=== PATIENT | male | born 1955 | race Caucasian/White ===

== ENCOUNTER 2019-11-10 00:12 | Outpatient (CLI) | payer MEDICARE, SELFPAY ==
[2019-11-10 18:07] LABS: SARS-CoV-2 RNA PCR Negative
== END 2019-11-10 00:13 | disposition home or self-care (01) ==
LOC: ANHCOVIDDT 00:12
PROVIDERS: PCP Family Medicine; Visit Provider Surgery
DX: Z01.812 Encounter for preprocedural laboratory examination (principal); Z20.828 Contact with and (suspected) exposure to other viral communicable diseases
CPT/HCPCS: 87635; C9803; U0003

== ENCOUNTER 2019-11-12 01:31 | Day surgery (SDC) | payer MEDICARE, SELFPAY ==
[2019-11-03 14:38] VITALS: BMI 27.6
[2019-11-12 06:50] VITALS: BP 152/86; PULSE 50; RESP 16; TEMP 36.4; O2SAT 100
--- NOTE | 2019-11-12 06:57 | WPDANESEPPF ---
Anes - Initial Pre Proc Eval Procedure: Operation Date: 11/12/19 07:30 Proposed Procedures p Bilateral Inguinal Hernia Repair With Mesh - Celestino Dave MD Date/Time: 11/12/19 06:57 Surgeon: Celestino Dave MD Pre Op Diagnosis: bilateral inguinal hernia Patient Data Age: 64 Gender: M Height: 5 ft 7 in Weight: 74 kg Last Vital Signs Temp 36.4 C 11/12/19 06:50 Pulse 50 L 11/12/19 06:50 Resp 16 11/12/19 06:50 BP 152/86 H 11/12/19 06:50 Pulse Ox 100 11/12/19 06:50 Allergies Allergy/AdvReac Type Severity Reaction Status Date / Time No Known Allergies Allergy Mild Verified 11/12/19 06:21 Home Medications Medication Instructions Recorded Confirmed Type mometasone 0.1 % topical cream 1 applic TOPICAL DAILY PRN #15 gm 08/26/19 11/12/19 Rx Patient hx anesthesia problems: none Family hx anesthesia problems: none PMFSH Past Medical History Medical History Anemia Bilateral inguinal hernia Lipoma of back Mixed hyperlipidemia Nocturia Seborrheic dermatitis Surgical History Surgical History H/O removal of cyst (~1967) removal of cyst in 1967 and in 2009 Hx of tonsillectomy (~1960) Family History Family History Father Heart disease Mother Cerebrovascular accident Sibling Heart disease Hypertension Social History Social History Smoking status: Never smoker Alcohol intake: never Substance use: never Gender identity (if verbalized by the patient): Male Anes - Eval Final PreProcedure Day of Procedure 11/12/19 06:57 Patient weight: overweight Heart: regular rate and rhythm Lungs: clear to auscultation Airway: Mallampati scale class 1 Neurological: alert and oriented Last oral intake: >/= 8 hours ASA classification: II Emergent: no Anesthetic plan: proceed Anesthesia type and monitoring: general GIVS and standard monitoring Informed Consent: The patient's anesthetic plan and its attendant risks and benefits were discussed with the patient/family/POA. Questions were solicited and answers provided to the satisfaction of the patient/family/POA.
[2019-11-12] MEDS: LACTATED RINGERS 1,000 ML 30 ML IV CONT ×2 (07:04→09:28)
--- NOTE | 2019-11-12 07:17 | WPDHPUPDATE1 ---
History and Physical Update Update Date/Time: 11/12/19 07:17 History and Physical has been reviewed, including an updated exam of the patient. There are NO changes in the patient's condition. Risks, benefits, and alternatives have been discussed and questions answered. Patient agrees to proceed with procedure.
[2019-11-12] MEDS: ceFAZolin 2 GM/D5W 50 ML 2 GM/50 ML BAG IVPB (07:20)
[2019-11-12] MEDS: KETOROLAC 30 MG/ML VIAL (*BKC) IM (09:14)
[2019-11-12 09:30] VITALS: BP 134/83; PULSE 48; RESP 12; O2SAT 99
[2019-11-12 10:00] VITALS: BP 146/80; PULSE 62; RESP 12
--- NOTE | 2019-11-12 10:20 | SUR.PHASEII ---
1020 spoke with spouse and updated her on pt condition
[2019-11-12 10:30] VITALS: BP 146/80; PULSE 62; RESP 12
[2019-11-12 11:00] VITALS: BP 158/81; PULSE 49; RESP 12
--- NOTE | 2019-11-12 13:38 | PM.PROC ---
Procedure Note - Detailed Date of procedure: 11/12/19 Pre-op diagnosis: bilateral inguinal hernia Bilateral inguinal hernias Post-op diagnosis: same Procedure performed: Repair bilateral inguinal hernias with Parietex hernia mesh system Description of procedure: The patient was taken to surgery and IV sedation was administered. Both the right and left groin areas and genitalia were prepped and draped. The right inguinal hernia was addressed 1st. The proposed incision was marked on the skin. Local was infiltrated into the skin and the deeper subcutaneous tissues. Incision was made and deepened through the subcutaneous. Crossing veins were cauterized and divided. Dissection was carried through Veronika's fascia down to the external oblique aponeurosis. The aponeurosis was exposed as was the external ring. Additional local anesthesia was infiltrated deep to the aponeurosis in the area of the spermatic cord and inguinal canal contents. The aponeurosis was opened laterally and extended medially through the external ring. The leaves of the aponeurosis were dissected free from the spermatic cord. The ileoinguinal nerve was carefully preserved throughout the dissection and was left attached to the spermatic cord. The cord was then mobilized medially on a Breanna drain. The cord was dissected back to the internal ring. Dissection was then carried out the hernia sac from the cord. This was a large direct hernia with a wide base. It occupied most of the direct space. It was dissected back to its neck. The hernia sac was scored through the transversalis fascia circumferentially just above the neck. The sac was dunked into the retroperitoneum. A 8 centimeter Parietex chilkoot was chosen. It was folded to form a plug. It was placed in the defect. The edges were sutured to the transversalis fascia with interrupted 3 0 Vicryl suture. The hernia defect was then partially closed with some additional 3 0 Vicryl suture. Patch was then cut to the appropriate size and placed over the inguinal canal floor. The lateral leaves were passed beyond the cord. The cord and ileoinguinal nerve were then laid over the patch. The external oblique aponeurosis was closed with interrupted 3 0 Vicryl suture. Veronika's fascia was closed with interrupted 3 0 Vicryl suture. The subcutaneous was closed with interrupted 4 0 Vicryl suture. Four 0 Vicryl subcuticular skin sutures were placed. The skin was closed finally with a running 4 0 Monocryl skin suture. The surgeon then changed sides and went to the patient's left side. The left inguinal hernia was addressed. The proposed incision was marked on the skin as a mirror image to the right side. Local was infiltrated into the skin and the deeper subcutaneous tissues. Incision was made and deepened through the subcutaneous. Crossing veins were cauterized and divided. Dissection was carried through Veronika's fascia down to the external oblique aponeurosis. The aponeurosis was exposed as was the external ring. Additional local anesthesia was infiltrated deep to the aponeurosis in the area of the spermatic cord and inguinal canal contents. The aponeurosis was opened laterally and extended medially through the external ring. The leaves of the aponeurosis were dissected free from the spermatic cord. The ileoinguinal nerve was carefully preserved throughout the dissection and was left attached to the spermatic cord. The cord was then mobilized medially on a Breanna drain. The cord was dissected back to the internal ring. Dissection was then carried out the hernia sac from the cord. This was also a direct hernia although not as large as on the right side. It was dissected back to its neck. The hernia sac was scored through the transversalis fascia circumferentially just above the neck. The sac was dunked into the retroperitoneum. A 6 centimeter Parietex chilkoot was chosen. It was folded to form a plug. It was placed in the defect. The
== END 2019-11-12 11:39 | disposition home or self-care (01) ==
PROVIDERS: PCP Family Medicine; Visit Provider Surgery
PROC: (CPT 49505; principal; 2019-11-12 07:30)
DX: K40.20 Bilateral inguinal hernia, without obstruction or gangrene, not specified as recurrent (principal); L21.9 Seborrheic dermatitis, unspecified
CPT/HCPCS: 49505; A9270; C1781; C9290; J0690; J1885; J2250; J2405; J2704; J3010; J7120

== ENCOUNTER 2020-05-02 09:54 | Outpatient (CLI) | payer MEDICARE, SELFPAY ==
--- NOTE | 2020-05-02 | EST_ITS ---
Patient Info Name: Cuco Cordova Age: 64 years : 1955 Gender: Male Ht: 67 in Wt: 165 lbs BSA: 1.89 m2 Heart Rhythm: Sinus Rhythm Technical Quality: Excellent Exam Date: 05/02/2020 10:28 AM Exam Location: [facility] Patient Status: Outpatient Admit Date: 05/02/2020 Staff Ordering Physician: Destin Escalona MD Attending Provider: Destin Escalona MD Exercise Technologist: Delicia Mejia RDCS Exam Type: CA stress test treadmill Study Info Indications I49.9 - Cardiac arrhythmia, unspecified A treadmill exercise stress test was performed. Summary 1. Negative treadmill stress test for ischemia. 2. Very good exercise tolerance. 3. Minor ventricular ectopy with exercise. Protocol: [facility] ECG Details Stage: REST Duration (min): 7 min : 23 sec Speed (mph): 0.0 Grade (%): 0 HR (bpm): 63 SBP (mmHg): 156 DBP (mmHg): 92 METS: --- Stage: REST Duration (min): 16 min : 13 sec Speed (mph): 0.0 Grade (%): 0 HR (bpm): --- SBP (mmHg): 156 DBP (mmHg): 92 METS: --- Stage: STAGE 1 Duration (min): 1 min : 0 sec Speed (mph): 1.7 Grade (%): 10 HR (bpm): 86 SBP (mmHg): 156 DBP (mmHg): 92 METS: --- Stage: STAGE 1 Duration (min): 2 min : 0 sec Speed (mph): 1.7 Grade (%): 10 HR (bpm): 92 SBP (mmHg): 156 DBP (mmHg): 92 METS: --- Stage: STAGE 1 Duration (min): 3 min : 0 sec Speed (mph): 1.7 Grade (%): 10 HR (bpm): 92 SBP (mmHg): 165 DBP (mmHg): 74 METS: --- Stage: STAGE 2 Duration (min): 1 min : 0 sec Speed (mph): 2.5 Grade (%): 12 HR (bpm): 103 SBP (mmHg): 165 DBP (mmHg): 74 METS: --- Stage: STAGE 2 Duration (min): 2 min : 0 sec Speed (mph): 2.5 Grade (%): 12 HR (bpm): 113 SBP (mmHg): 170 DBP (mmHg): 79 METS: --- Stage: STAGE 2 Duration (min): 3 min : 0 sec Speed (mph): 2.5 Grade (%): 12 HR (bpm): 117 SBP (mmHg): 170 DBP (mmHg): 79 METS: --- Stage: STAGE 3 Duration (min): 1 min : 0 sec Speed (mph): 3.4 Grade (%): 14 HR (bpm): 125 SBP (mmHg): 173 DBP (mmHg): 77 METS: --- Stage: STAGE 3 Duration (min): 2 min : 0 sec Speed (mph): 3.4 Grade (%): 14 HR (bpm): 128 SBP (mmHg): 173 DBP (mmHg): 77 METS: --- Stage: STAGE 3 Duration (min): 3 min : 0 sec Speed (mph): 3.4 Grade (%): 14 HR (bpm): 128 SBP (mmHg): 163 DBP (mmHg): 81 METS: --- Stage: STAGE 4 Duration (min): 1 min : 0 sec Speed (mph): 4.2 Grade (%): 16 HR (bpm): 134 SBP (mmHg): 163 DBP (mmHg): 81 METS: --- Stage: STAGE 4 Duration (min): 1 min : 2 sec Speed (mph): 4.2 Grade (%): 16 HR (bpm): 134 SBP (mmHg): 163 DBP (mmHg): 81 METS: --- Stage: RECOVERY Durat
--- NOTE | 2020-05-02 10:13 | ECG_ITS ---
Measurements Intervals Baker Rate: 74 P: 55 PA: 155 QRS: -24 QRSD: 88 T: 9 QT: 359 QTc: 400 Interpretive Statements SINUS RHYTHM BORDERLINE T WAVE ABNORMALITY- INFERIOR LEADS BORDERLINE ECG Electronically Signed On 05-02-2020 11:55:33 MEDICAL OFFICE TECHNICIAN by Raphael Lugo D.O.
== END 2020-05-02 09:55 | disposition home or self-care (01) ==
PROVIDERS: PCP Family Medicine; Visit Provider Family Medicine
DX: I49.9 Cardiac arrhythmia, unspecified (principal); R94.31 Abnormal electrocardiogram [ECG] [EKG]
CPT/HCPCS: 93005; 93017

== ENCOUNTER 2020-07-03 06:54 | Outpatient (NON) | payer MEDICARE, SELFPAY ==
[2020-07-03 21:25] LABS: SARS-CoV-2 RNA PCR Negative
== END 2020-07-03 06:55 ==
PROVIDERS: PCP Family Medicine; Visit Provider Family Medicine
DX: R68.89 Other general symptoms and signs (principal); Z20.822 Contact with and (suspected) exposure to COVID-19
CPT/HCPCS: C9803; U0003; U0005

== ENCOUNTER 2023-08-26 08:29 | Day surgery (SDC) | payer MEDICARE, SELFPAY ==
[2023-08-26] VITALS (10 sets, daily range): BP systolic 126–159; BP diastolic 48–87; PULSE 49–80; RESP 14–21; TEMP 36–36.8; O2SAT 98–100
--- NOTE | ~2023-08-26 | CT_ITS ---
CT of the Abdomen and Pelvis: Indication: Abdominal pain Technique: 2.5 mm axial scans were obtained through the abdomen and pelvis following intravenous adm inistration of 100 cc of Omnipaque 350. Dose reduction technique was used on this scan by utilizing a utomated exposure control and iterative reconstruction technique. The dose-length product (DLP) was 4 62.11 mGy-cm. Findings: Scans through the lung bases are unremarkable. Right hepatic lobe cyst present posteriorly. The spleen, pancreas, gallbladder, adrenals and right ki dney are within normal limits. There is a 7 x 5 mm stone at the distal left ureter (axial image 150), with moderate left hydroureteronephrosis to this level. There is left perinephric fluid. No contrast extravasation evident at this time, though delayed images were not performed. There are atherosclero tic calcifications of the aorta. No lymphadenopathy. No bowel obstruction or bowel wall thickening. There is no evidence to suggest acute appendicitis. Images through the pelvis were performed. Urinary bladder unremarkable. Prostate gland mildly enlarge d. No ascites in the pelvis. Impression: 7 x 5 mm distal left ureteral stone with moderate left hydroureteronephrosis. Left perinephric fluid, possibly due to calyceal rupture. Reviewed, dictated and finalized at location . Impression: 7 x 5 mm distal left ureteral stone with moderate left hydroureteronephrosis. Left perinephric fluid, possibly due to calyceal rupture.
--- NOTE | ~2023-08-26 | XR_ITS ---
EXAMINATION: XR retrograde pyelo w/stent LT DATE: 08/26/2023 16:45 CDT INDICATION: LEFT RETRO, LEFT STENT . TECHNIQUE: 5 fluoroscopic images of the left abdomen and pelvis were obtained during left retrograde pyelography with stent placement, performed by Dilan Sanders MD. I was not present during th e procedure. Fluoroscopy exposure time was 17.2 seconds. Air Kerma 5.30 mGy. DAP 0.93736 mGym2. COMPARISON: CT abdomen pelvis 08/26/2023 FINDINGS/IMPRESSION: Fluoroscopic documentation of left retrograde pyelography with stent placement. Please refer to the o perative note for complete procedural details. Reviewed, dictated and finalized at location K.
--- NOTE | ~2023-08-26 | XR_ITS ---
EXAMINATION: XR abdomen/kub 1V DATE: 08/26/2023 10:52 INDICATION: Left ureteral stone. Left flank pain. TECHNIQUE: A supine view of the abdomen on 2 radiographs was obtained. COMPARISON: CT abdomen and pelvis 08/26/2023 FINDINGS: There are no dilated loops of bowel. There is contrast in the renal collecting system. Ther e are is moderate left hydronephrosis and hydroureter. There is a stone in distal left ureter. IMPRESSION: 1. Stone in distal left ureter with moderate left hydronephrosis and hydroureter. Reviewed, dictated and finalized at location A. IMPRESSION: 1. Stone in distal left ureter with moderate left hydronephrosis and hydrourete r.
--- NOTE | 2023-08-26 09:27 | ED.ABDPAIN ---
HPI - Abdominal Pain General Chief Complaint: Abdominal Pain <MARTÍN Macias Last Filed: 08/26/23 16:30> Stated Complaint: abd pain <MARTÍN Macias Last Filed: 08/26/23 16:30> Time Seen by Provider: 08/26/23 08:57 <MARTÍN Macias Last Filed: 08/26/23 16:30> Source: patient <MARTÍN Macias Last Filed: 08/26/23 16:30> Mode of arrival: ambulatory <MARTÍN Macias Last Filed: 08/26/23 16:30> Limitations: no limitations <MARTÍN Macias Last Filed: 08/26/23 16:30> History of Present Illness HPI narrative: Patient is a 67-year-old male, previously healthy, who presents the ED with report of left lower quadrant abdominal pain. Patient reports the pain began suddenly a few hours ago this morning. Present in his left lower abdomen. Denies radiation of the pain to his groin or around to his back. Has never had pain like this before. Has not tried anything for the pain. Is otherwise asymptomatic. Denies nausea, vomiting, diarrhea, constipation, dysuria, hematuria, fevers, testicular pain or swelling. Denies history of kidney stones or diverticulitis. Has had 2 previous colonoscopies which have been normal. <MARTÍN Macias Last Filed: 08/26/23 16:30> Related Data Home Medications: Home Medications Medication Instructions Recorded Confirmed No Home Medications 09/24/22 09/24/22 <MARTÍN Macias Last Filed: 08/26/23 16:30> Allergies/Adverse Reactions: Allergies Allergy/AdvReac Type Severity Reaction Status Date / Time No Known Allergies Allergy Mild Verified 08/26/23 15:22 <MARTÍN Macias Last Filed: 08/26/23 16:30> Review of Systems Review of Systems: CONSTITUTIONAL: Denies fever, chills, or sweats. GASTROINTESTINAL: See HPI. GENITOURINARY: Denies testicular pain/swelling, groin pain, dysuria or hematuria. MUSCULOSKELETAL: Denies back pain, extremity pain, myalgia. <Sowmya Kruger PA-C - Last Filed: 08/26/23 16:30> All systems reviewed & are unremarkable except as noted in HPI and below <Sowmya Kruger PA-C - Last Filed: 08/26/23 16:30> [facility] Past Medical History Medical History: Medical History Abnormal fasting glucose (09/01/20) glucose elevated at 101 on 09/01/2020 . Fasting glucose 89 on 09/17/2021. Glucose elevated at 107 with hemoglobin A1c 5.6 on 09/18/2022. Anemia hemoglobin 15.3 with iron 57 and 13% saturation on 09/01/2020. Hemoglobin 13.2 with hematocrit 41 with iron 65 with 17% saturation and ferritin low at 15 on 09/17/2021. Hemoglobin 13.7 with iron 37 with 11% saturation and ferritin 32 on 09/18/2022. Arrhythmia Bilateral inguinal hernia BMI 24.0-24.9, adult BMI 25.0-25.9,adult BMI 26.0-26.9,adult BMI 28.0-28.9,adult COVID-19 (04/23/20) COVID-19 (12/23/21) 2nd episode with symptoms starting 12/23/2021 with positive test on 12/24/2021. Encounter for other specified surgical aftercare Encounter for prostate cancer screening PSA 1.25 on 09/18/2022. Encounter for screening for COVID-19 Essential (primary) hypertension Lipoma of back Mixed hyperlipidemia total cholesterol 222, HDL 63, triglycerides 75, LDL 142 on 09/01/2020 . Total cholesterol 192, HDL 68, triglycerides 70, LDL 108 on 09/17/2021. Total cholesterol 173, HDL 51, triglycerides 160, LDL 96 on 09/18/2022. Nocturia PSA 1.02 on 09/17/2021. Pharyngitis Seborrheic dermatitis <Sowmya Kruger PA-C - Last Filed: 08/26/23 16:30> Surgical History Surgical History: Surgical History Bilateral inguinal hernia H/O removal of cyst (~1967) removal of cyst in 1967 and in 2009 Hx of tonsillectomy (~1960) <Sowmya Kruger PA-C - Last Filed: 08/26/23 16:30> Family History Family History: Family Histo
[2023-08-26 09:32] LABS: Basophils Absolute Auto 0.1 K/mm3 (0.0-0.1); Basophils Percent Auto 0.7 % (0.2-1.2); Eosinophils Absolute Auto 0.2 K/mm3 (0-0.3); Eosinophils Percent Auto 2.9 % (0-4.4); Hematocrit 34.9 % (42.0-52.0); Immature Granulocyte Absolute 0.04 K/mm3 (0.00-0.031); Immature Granulocyte Percent A 0.5 % (0-0.5); Lymphocytes Absolute Auto 1.66 K/mm3 (0.9-3.2); Mean Corpuscular HGB Conc 31.5 g/dl (32-36); Mean Corpuscular Hemoglobin 27.5 pg (26-34); Mean Corpuscular Volume 87.3 fl (80-100); Mean Platelet Volume 11.1 fl (7.4-10.4); Monocytes Absolute Auto 0.6 K/mm3 (0.1-0.6); Monocytes Percent Auto 8.5 % (2.6-8.5); Neutrophils Absolute Auto 4.9 K/mm3 (1.3-6.7); Neutrophils Percent Auto 65.4 % (45.5-73.1); Platelet Count Result 281 k/mm3 (150-375); Red Cell Distribution Width 15.6 % (11.5-14.5); White Blood Count 7.6 K/mm3 (4.5-10.0)
[2023-08-26] MEDS: ACETAMINOPHEN 500 MG TABLET 1000 MG PO (09:43)
[2023-08-26 09:47] LABS: Alanine Aminotransferase 14 U/L (6-50); Albumin Level 3.7 g/dL (3.5-5.1); Alkaline Phosphatase 61 U/L (38-126); Anion Gap 7 mmol/L (8-16); Aspartate Amino Transferase 23 U/L (17-59); Bilirubin,Total 0.5 mg/dL (0.2-1.3); Blood Urea Nitrogen 19 mg/dL (9-20); Calcium 8.6 mg/dL (8.4-10.2); Carbon Dioxide 23 mmol/L (22-30); Chloride 110 mmol/L (98-107); Estimated CRCL calculation 53 ml/min; Estimated Glomerular Filt Rate > 60; Glucose 134 mg/dL (65-110); Lipase 84 U/L (23-300); Potassium 4.5 mmol/L (3.4-5.0); Sodium 140 mmol/L (137-145)
[2023-08-26 11:00] LABS: Appearance Urine Clear (Clear); Bacteria Urine None Seen /hpf; Bilirubin Urine Negative (Negative); Blood Urine 1+ (Negative); Color Urine Yellow (Yellow); Glucose Urine UA Negative (Negative); Ketones Urine Negative (Negative); Leukocyte Esterase Ur Negative LEU/UL (Negative); Nitrate Urine Negative (Negative); Non Pathogenic Casts 0-2; Protein Urine Negative (Negative); Squamous Epithelial Cell Urine None seen /hpf (Few); Urobilinogen Urine 0.2 mg/dL (<2.0); WBC Urine 0-5 /hpf
[2023-08-26 11:06] LABS: Add Urine Microscopic? YES; Specific Grav Ur 1.048 (1.001-1.035)
[2023-08-26] MEDS: ONDANSETRON INJ 4 MG/2 ML VIAL IV PUSH ×2 (11:26→16:40)
[2023-08-26] MEDS: MORPHINE SULFATE (*CRX) 4 MG/ML INJ IV PUSH (11:26)
[2023-08-26] MEDS: TAMSULOSIN HCL 0.4 MG CAPSULE PO (11:26)
[2023-08-26] MEDS: SODIUM CHLORIDE 0.9% IV 1,000 ML 999 ML IV CONT (11:26)
--- NOTE | 2023-08-26 12:19 | PC.NURSE ---
Pt informed of plan for surgery to remove kidney stone. Pt clothing removed, placed in gown & surgical hat applied.
[2023-08-26] MEDS: LACTATED RINGERS 1,000 ML 30 ML IV CONT (15:20)
--- NOTE | 2023-08-26 15:20 | PM.IMHP ---
H&P: HPI History of Present Illness Date/Time: 08/26/23 15:20 Chief Complaint: Obstructing left distal ureteral calculus 7 mm Narrative: 67-year-old male who developed left lower quadrant pain. He was evaluated in the emergency room found have a 7 mm distal left UVJ stone with hydronephrosis. He has been afebrile with a normal white count. Given the size of the stone we decided to proceed with cystoscopy, left retrograde pyelogram left ureteroscopy with stone extraction and stent placement possible laser. Review of Systems Review of Systems: All systems reviewed & are unremarkable except as noted in HPI and below PMFSH Past Medical History Medical History Abnormal fasting glucose (09/01/20) glucose elevated at 101 on 09/01/2020 . Fasting glucose 89 on 09/17/2021. Glucose elevated at 107 with hemoglobin A1c 5.6 on 09/18/2022. Anemia hemoglobin 15.3 with iron 57 and 13% saturation on 09/01/2020. Hemoglobin 13.2 with hematocrit 41 with iron 65 with 17% saturation and ferritin low at 15 on 09/17/2021. Hemoglobin 13.7 with iron 37 with 11% saturation and ferritin 32 on 09/18/2022. Arrhythmia Bilateral inguinal hernia BMI 24.0-24.9, adult BMI 25.0-25.9,adult BMI 26.0-26.9,adult BMI 28.0-28.9,adult COVID-19 (04/23/20) COVID-19 (12/23/21) 2nd episode with symptoms starting 12/23/2021 with positive test on 12/24/2021. Encounter for other specified surgical aftercare Encounter for prostate cancer screening PSA 1.25 on 09/18/2022. Encounter for screening for COVID-19 Essential (primary) hypertension Lipoma of back Mixed hyperlipidemia total cholesterol 222, HDL 63, triglycerides 75, LDL 142 on 09/01/2020 . Total cholesterol 192, HDL 68, triglycerides 70, LDL 108 on 09/17/2021. Total cholesterol 173, HDL 51, triglycerides 160, LDL 96 on 09/18/2022. Nocturia PSA 1.02 on 09/17/2021. Pharyngitis Seborrheic dermatitis Surgical History Surgical History Bilateral inguinal hernia H/O removal of cyst (~1967) removal of cyst in 1967 and in 2009 Hx of tonsillectomy (~1960) Family History Family History Father Heart disease Mother Cerebrovascular accident Sibling Heart disease Hypertension Social History Social History Smoking status: Never smoker Alcohol intake: never Substance use: never Substance use type: does not use Lack of Transportation: No Lack of Food: Never True Current Housing: I Have Housing Concerned About Future Housing: No Difficulty Paying Gas/Electric Bills: No Difficulty Paying for Meds: No Currently Unemployed: No Education: Bachelor's Degree Difficulty w/ Childcare or Family Care: No Gender identity (if verbalized by the patient): Male Meds Home Medications and Allergies Home Medications Medication Instructions Recorded Confirmed Type No Home Medications 09/24/22 09/24/22 History Allergies Allergy/AdvReac Type Severity Reaction Status Date / Time No Known Allergies Allergy Mild Verified 08/26/23 15:22 Vital Signs Vital Signs - 24 hr 08/26/23 08:30 08/26/23 11:30 08/26/23 12:18 Temperature 36.4 C Pulse Rate 80 52 L 66 Respiratory Rate 18 14 16 Blood Pressure 126/48 L 143/74 H 146/74 H Pulse Oximetry 98 100 100 08/26/23 14:20 Temperature 36.8 C Pulse Rate 52 L Respiratory Rate 16 Blood Pressure 144/69 H Pulse Oximetry 100 Exam Const: General: cooperative HENMT: Head: normal to inspection Eyes: General: appearance normal, both eyes and all related structures Resp: Effort & Inspection: normal respiratory effort Cardio: Rate: regular rate Rhythm: regular rhythm GI: Inspection: normal to inspection H&P: Results Labs Labs: Short CBC 08/26/23 Range/Units 09:05 WBC
--- NOTE | 2023-08-26 15:23 | WPDHPUPDATE1 ---
History and Physical Update Update Date/Time: 08/26/23 15:23 History and Physical has been reviewed, including an updated exam of the patient. There are NO changes in the patient's condition. Risks, benefits, and alternatives have been discussed and questions answered. Patient agrees to proceed with procedure.
--- NOTE | 2023-08-26 15:34 | WPDANESEPPF ---
Anes - Initial Pre Proc Eval Procedure: Operation Date: 08/26/23 16:15 Proposed Procedures p Cystoscopy, Left Ureteroscopy, Possible Left Retrograde Pyelogram, Possible Left Stone Extraction, Possible Left Stent Placement, Possible Holmium Laser Procedure - Dilan Sanders MD Date/Time: 08/26/23 15:34 Surgeon: Dilan Sanders MD Pre Op Diagnosis: abd pain Patient Data Age: 67 Gender: M Height: 1.7 m Weight: 77.4 kg Last Vital Signs Temp 36.8 C 08/26/23 14:20 Pulse 52 L 08/26/23 14:20 Resp 16 08/26/23 14:20 BP 144/69 H 08/26/23 14:20 Pulse Ox 100 08/26/23 14:20 Allergies Allergy/AdvReac Type Severity Reaction Status Date / Time No Known Allergies Allergy Mild Verified 08/26/23 15:22 Home Medications Medication Instructions Recorded Confirmed Type No Home Medications 09/24/22 09/24/22 History Laboratory Tests 08/26/23 08/26/23 09:05 10:50 WBC 7.6 K/mm3 (4.5-10.0) RBC 4.00 L M/mm3 (4.6-6.20) Hgb 11.0 L g/dL (14.0-18.0) Hct 34.9 L % (42.0-52.0) MCV 87.3 fl (80-100) MCH 27.5 pg (26-34) MCHC 31.5 L g/dl (32-36) RDW 15.6 H % (11.5-14.5) Plt Count 281 k/mm3 (150-375) MPV 11.1 H fl (7.4-10.4) Immature Gran % (Auto) 0.5 % (0-0.5) Neut % (Auto) 65.4 % (45.5-73.1) Lymph % (Auto) 22.0 % (18.3-44.2) [place] % (Auto) 8.5 % (2.6-8.5) Eos % (Auto) 2.9 % (0-4.4) Baso % (Auto) 0.7 % (0.2-1.2) Lymph # (Auto) 1.66 K/mm3 (0.9-3.2) [place] # (Auto) 0.6 K/mm3 (0.1-0.6) Eos # (Auto) 0.2 K/mm3 (0-0.3) Baso # (Auto) 0.1 K/mm3 (0.0-0.1) Abs Immat Gran (auto) 0.04 H K/mm3 (0.00-0.031) Absolute Neuts (auto) 4.9 K/mm3 (1.3-6.7) Absolute Nucleated RBC 0.0 K/mm3 (0.0-0.012) Nucleated RBC % 0.0 % (0.0-0.2) Sodium 140 mmol/L (137-145) Potassium 4.5 mmol/L (3.4-5.0) Chloride 110 H mmol/L (98-107) Carbon Dioxide 23 mmol/L (22-30) Anion Gap 7 L mmol/L (8-16) BUN 19 mg/dL (9-20) Creatinine 1.10 mg/dL (0.7-1.3) Estim Creat Clear Calc 53 ml/min Estimated GFR > 60 (59 - ) Glucose 134 H mg/dL (65-110) Calcium 8.6 mg/dL (8.4-10.2) Total Bilirubin 0.5 mg/dL (0.2-1.3) AST 23 U/L (17-59) ALT 14 U/L (6-50) Alkaline Phosphatase 61 U/L (38-126) Total Protein 7.0 g/dL (6.3-8.2) Albumin 3.7 g/dL (3.5-5.1) Lipase 84 U/L (23-300) Urine Color Yellow (Yellow) Urine Appearance Clear (Clear) Urine pH 6.0 (5.0-9.0) Ur Specific [place] 1.048 H (1.001-1.035) Urine Protein Negative mg/dL (Negative) Urine Glucose (UA) Negative mg/dL (Negative) Urine Ketones Negative mg/dL (Negative) Ur Blood (Man) 1+ H (Negative) Urine Nitrate Negative (Negative) Urine Bilirubin Negative (Negative) Urine Urobilinogen 0.2 mg/dL (<2.0) Leukocyte Esterase Rfl Negative [place]/UL (Negative) Urine RBC 6-10 H /hpf (0-2) Urine WBC 0-5 /hpf Ur Squamous Epith Cells None seen /hpf (Few) Urine Bacteria None seen /hpf Urine Casts 0-2 Patient hx anesthesia problems: none Family hx anesthesia problems: none Results Review: All pre-operative results and documents have been reviewed as part of the pre-operative evaluation. [facility] Past Medical History Medical History Abnormal fasting glucose (09/01/20) glucose elevated at 101 on 09/01/2020 . Fasting glucose 89 on 09/17/2021. Glucose elevated at 107 with hemoglobin A1c 5.6 on 09/18/2022. Anemia hemoglobin 15.3 with iron 57 and 13% saturation on 09/01/2020. Hemoglobin 13.2 with hematocrit 41 with iron 65 with 17% sa
[2023-08-26] MEDS: FAMOTIDINE 20 MG/2 ML VIAL IV PUSH (16:40)
[2023-08-26] MEDS: ceFAZolin 2 GM/D5W 50 ML 2 GM/50 ML BAG IVPB (16:41)
[2023-08-26] MEDS: LIDOCAINE HCL 2% GEL UROJET 10 ML PKG MUCOUS MEM (17:05)
--- NOTE | 2023-08-26 17:15 | P.OP_ITS ---
Procedure Note - Detailed Date of Procedure 08/26/23 Pre-op Diagnosis 7 mm distal left ureteral calculus Post-op Diagnosis Same Procedure Performed Cystoscopy, left retrograde pyelogram, left ureteroscopy with holmium laser, stone extraction, left ureteral stent placement 4.8 [place] contour Surgeon Dilan Sanders MD Anesthesia General Description of Procedure Patient is taken the operative suite correctly identified. Once anesthesia was obtained he was placed in dorsal lithotomy position prepped draped usual sterile fashion. Nineteen [place] scope was inserted the bladder there no tumors noted. The left ureteral orifice was cannulated with a guidewire. I dilated with an 810 dilator. Rigid ureteral scope was then inserted the stone was visualized. It was too large to retrieve 1 piece. Using a 200 micron fiber we fragmented the stone into multiple small pieces. The largest were retrieved sent for analysis. Reinspection revealed no significant stone burden. Pyelogram was then performed to confirm placement of the stent. 4.8 [place] contour stent is placed with the proximal end coiled in the left renal pelvis and the distal in the bladder. Bladder was drained. 2% viscous lidocaine inserted into the urethra. Patient is taken recovery stable condition. He will follow-up in a week's time for stent removal. This completes dictation. Please send a copy of op note to my office. Drains Yes Packing No Pathology Yes Complications No immediate complications Condition Stable Disposition PACU
== END 2023-08-26 18:30 | disposition home or self-care (01) ==
LOC: ANHED 12:06 → ANHSURGERY 15:04
PROVIDERS: Emergency Provider Physician Assistant; PCP Family Medicine; Visit Provider Urology
PROC: (CPT 52352; principal; 2023-08-26 16:15)
DX: N20.1 Calculus of ureter (principal); I10 Essential (primary) hypertension; E78.2 Mixed hyperlipidemia
CPT/HCPCS: 52356; 36415; 74018; 74177; 74420; 80053; 81001; 82365; 83690; 85025; 88300; 96361; 96374; 96375; 99285; A9270; C1769; C1894; C2617; J0330; J0690; J1100; J2270; J2405; J2704; J3010; J7030; J7120; Q9966; Q9967

== ENCOUNTER 2024-12-20 14:53 | Emergency (ER) | payer MEDICARE, SELFPAY ==
--- NOTE | ~2024-12-20 | XR_ITS ---
Exam: Abdomen 1V HISTORY: abd pain, constipation COMPARISON: 08/26/2023 TECHNIQUE: Supine images of the abdomen FINDINGS: Bowel gas pattern is nonspecific and non-obstructive. Significant fecal stasis is identified within the rectum and descending colon. There is no free air or deep sulci. No pathologic calcifications project over either kidney. Lung bases are not completely included. Bones and soft tissues are unremarkable. IMPRESSION: Significant fecal stasis within the rectum and descending colon Reviewed, dictated and finalized at location A.
--- OUTSIDE RECORDS SUMMARY | 2024-12-20 14:56 | XMS_ITS | Clinical Summary ---
Author Organization [facility] Address [address] [place] [id number] Care Team Providers Care Land Conservation Specialist Name Role Phone Unavailable Primary Care Provider Unavailabl e Social History Tobacco Use Types Packs/Day Years Used Date Smoking Tobacco: Never Assessed Sex and Gender Information Value Date Recorded Sex Assigned at Not on file Legal Sex Male 8:00 AM CLINICAL DOCUMENTATION IMPROVEMENT SPECIALIST Gender Identity Not on file Sexual Orientation Not on file Plan of Treatment Health Maintenance Due Date Last Done Comments Hepatitis C Virus (HCV) Screening 1955 TdaP Immunization 1955 Colonoscopy 1998 Colorectal Cancer Screening 1998 Cologuard 11/01/2003 Immunochemical Fecal Occult Blood 11/01/2003 Pneumococcal Immunization (5 0+ years) (1 of 1 - PCV) 11/01/2003 Zoster Immunization (1 of 2) 11/01/2003 Influenza Immunization (#1) 2024 SARS-COV-2 Immunization ( - 2023- season) 2024 Respiratory Syncytial Virus (RSV) Immunization (Adult) (1 - 1-dose 75+ series) 2028 Hepatitis B Immunization Aged Out No longer eligible based on patient's age to complete this topic Meningococcal Immunization (ACWY) Aged Out No longer eligible based on patient's age to complete this topic Rotavirus Immunization Aged Out No lo nger eligible based on patient's age to complete this topic
--- OUTSIDE RECORDS SUMMARY | 2024-12-20 14:56 | XMS_ITS ---
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 10/11/2024 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 09/29/2024 Overview (11/03/2024): DIAGNOSIS: Left neck unknown primary carcinoma PROCEDURE PERFORMED: (Darshan 10/11/24) Transoral robotic assisted left partial pharyngectomy and base of tongue resection Left neck dissection Malignant neoplasm without specification of site 09/27/2024 Neck mass 09/09/2024 Current Treatment and Therapy Plans [id number] - [facility] - H&N - Adjuvant Cisplatin* Plan Start Date:11/10/2024 Plan Provider:Faisal Montalvo MD Linked Problems Malignant neoplasm without s pecification of site (HCC)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 No medications scheduled. Past Treatment and Therapy Plans No past plan information found. Current Radiation Episodes * Radiation Oncology - Radiation Therapy - September 2024Overview* First Treatment Date Latest Treatment Date Treatment Site Technique Goal Episode Provider 12/07/2024 12/20/2024 Treatment Courses* Course C1 HEAD NECK_LT 12/07/2024 - 12/20/2024 Treatment Period Fraction Dose Fractions Total Dose Plans Planned HEAD NECK_LT 12/07/2024 - 12/20/2024 200 9 / 3,000 Reference Points Delivered PTV1 12/07/2024 - 12/20/2024 1,800 Lifetime Dose Tracking * Chemical Lifetime Dose Automatic Entry Manual Entr y DLP 525 mGycm 525 mGycm 0 mGycm
--- OUTSIDE RECORDS SUMMARY | 2024-12-20 14:56 | XMS_ITS | Referral Summary ---
Author Organization [facility] [address] Address [address] [place] [address] Care Team Providers Care Dormitory Counselor Name Role Phone Destin Escalona MD Primary Care Provider [phone] Malachi Steen MD Unavailable [phone] Mariah Sharma RN Unavailable Unavailable OpFaisal hernández MD Unavailable [phone] Jair Sexton MD Unavailable [phone] Adriel Moore MD PhD Unavailable [phone] Maureen Hernández LCSW Unavailable Unavaila ble Encounters Date Type Department Care Team Description 12/20/2024 Orders Only RAD ONC TREATMENTS Miscellaneous, Not In File 12/20/2024 8:53 AM CDT Hospital Encounter [facility] Radiation Oncology [address] [facility] [place] [address] 12/16/2024 Orders Only RAD ONC TREATMENTS Miscellaneous, Not In File 12/16/2024 10:15 AM CDT Lab [facility] - Lab Collection [address] [facility] Floor 5 [place] [address] Malignant neoplasm without specification of site (HCC) 12/16/2024 11:15 AM CDT Office Visit [facility] Oncology [address] [facility] Floor 5 [place] [address] Faisal Montalvo MD 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); Malignant neoplasm without specification of site (HCC); 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) 12/16/2024 9:33 AM CDT - 12/16/2024 11:59 PM CDT Hospital Encounter [facility] Rad[facility] [address] [facility] [place] [address] Discharge Disposition: Discharge to home or self care 12/15/2024 Orders Only [facility] Oncology [address] [facility] Floor 5 [place] [address] Antony Rubio MD Malignant neoplasm without specification of site (HCC) (Primary Dx) 12/15/2024 Orders Only RAD ONC TREATMENTS Miscellaneous, Not In File 12/15/2024 10:46 AM CDT - 12/15/2024 11:59 PM CDT Hospital Encounter [facility] Radiation Oncology [address] [place] [address] Discharge Disposition: Discharge to home or self care 12/14/2024 Documentation [facility] Nutrition Counseling 1 [place] [address] 12/14/2024 OTV [facility] Radiation Oncology [address] [place] [address] Adriel Moore MD PhD 12/14/2024 Orders Only RAD ONC TREATMENTS Miscellaneous, Not In File 12/14/2024 9:22 AM CDT - 12/14/2024 11:59 PM CDT Hospital Encounter [facility] Radiation Oncology [address] [place] [address] Discharge Disposition: Discharge to home or self care 12/13/2024 Orders Only RAD ONC TREATMENTS Miscellaneous, Not In File 12/13/2024 1:18 PM CDT - 12/13/2024 11:59 PM CDT Hospital Encounter [facility] Radiation Oncology [address] [place] [address] Discharge Disposition: Discharge to home or self care 12/11/2024 1:59 PM CDT - 12/11/2024 5:09 PM CDT Hospital Encounter [facility] [address] [place] [address] 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) 12/09/2024 10:30 AM CDT Office Visit [facility] Oncology [address] [facility] Floor 5 [place] [phone] Estela Wong NP 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 [place] [address] Discharge Disposition: Discharge to home or self care 12/07/2024 OTV [facility] Radiation Oncology [address] [facility] [place] [address] Adriel Moore MD PhD 12/07/2024 Orders Only RAD ONC TREATMENTS Miscellaneous, Not In File 12/07/2024 11:14 AM CDT - 12/07/2024 11:59 PM CDT Hospital Encounter [facility] Radiation Oncology [address] [facility] [place] [address] Adriel Moore MD PhD Discharge Disposition: Discharge to home or self care 12/06/2024 7:40 PM CDT - 12/06/2024 11:59 PM CDT Hospital Encounter [facility] Radiation Oncology [address] [place] [address] Discharge Disposition: Discharge to home or self care 12/03/2024 Telephone [facility] [address] [place] [address] 4th [place] [address] Mariah Sharma, LIZBETH Navigation follow up-tx start check in 11/19/2024 Telephone [facility] Oncology [address] [place] [phone] Henny Harper RN 11/18/2024 11:59 AM CDT - 11/18/2024 11:59 PM CDT Hospital Encounter [facility] Radiation On[facility] Critical access hospital1 [facility] [place] [address] Adriel Moore MD PhD Discharge Disposition: Discharge to home or self care 11/09/2024 Telephone [facility] Nutrition Counseling 1 [place] [address] Adia Mccall, MAURO 11/03/2024 3:00 PM CDT Therapy [facility] Otolaryngology [address] [place] [phone] Sarah Noland SLP Head and neck cancer (HCC) (Primary Dx); Dysphagia, unspecified type; 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) 11/03/2024 2:20 PM CDT Office Visit [facility] Department of Otolaryngology Head-Neck Division [address] [place] [phone] Jair Sexton MD 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) 11/02/2024 Telephone [facility] Physicians [facility] Oncology [address] [place] [address] [place] [phone] Faisal Mnotalvo MD 10/28/2024 9:15 AM CDT Lab [facility] - Lab Collection [address] [place] [address] Neck mass; Malignant neoplasm without specification of site (HCC); 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); 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) 10/28/2024 10:15 AM CDT Office Visit [facility] Oncology [address] [place] [phone] Faisal Montalvo MD Malignant neoplasm without specification of site (HCC) (Primary Dx); 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); 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); Head and neck cancer (HCC) 10/27/2024 Orders Only [facility] Oncology [facility] 5 [place] [address] Joanie Banks BS Neck mass (Primary Dx) 10/26/2024 Telephone [facility] Nutrition Counseling [address] [place] [phone] Adia Mccall, MAURO 10/15/2024 9:30 AM CDT Clinical Support [facility] Department of Otolaryngology Head-Neck Division [address] [place] [address] 5 [place] [phone] 10/15/2024 Telephone [facility] Otolaryngology [address] [place] [address] Marietta Ptaterson MS 10/13/2024 Telephone [facility] [address] [place] [address] 4th [place] [address] Mariah Sharma, LIZBETH Navigation follow up- hospital discharge check in 10/11/2024 9:19 AM CDT - 10/12/2024 2:31 PM CDT Hospital Encounter [address] [phone] Jair Sexton MD 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) Discharge Disposition: Discharge to home or self care 10/11/2024 11:20 AM CDT - 10/11/2024 4:15 PM CDT Surgery [facility] Operating Room 1 [place] [phone] Jair Sexton MD SP ROBOTIC GLOSSECTOMY 10/11/2024 1:43 PM CDT Anesthesia Event [facility] Operating Room 1 [place] [phone] Jonathan Ochoa MD Dippolito, Jenny Irene, NP 10/08/2024 Telephone [facility] [address] [place] [phone] Mariah Sharma, RN Navigation follow up- pre-surgical check in 10/05/2024 Telephone [facility] Oncology [address] [place] [phone] Henny Harper, LIZBETH Pre Cert 09/30/2024 2:30 PM CDT Lab [facility] - Lab Collection [address] [place] [address] 5 [place] [address] Malignant neoplasm without specification of site (HCC); Head and neck cancer (HCC) 09/30/2024 Telephone [facility] Oncology [address] [place] [phone] Henny Harper, LIZBETH 09/30/2024 Telephone [facility] [address] [place] [phone] Mariah Sharma, LIZBETH Navigation follow up 09/30/2024 10:00 AM CDT Lab [facility] - Lab Collection [address] [place] [address] Malignant neoplasm without specification of site (HCC); Head and neck cancer (HCC) 09/30/2024 3:30 PM CDT Pre-Admission Testing [facility] [address] [place] [address] Preoperative testing (Primary Dx) 09/30/2024 8:00 AM CDT Office Visit [facility] Oncology [address] [place] [phone] Faisal Montalvo MD Malignant neoplasm without specification of site (HCC) (Primary Dx); Head and neck cancer (HCC) 09/28/2024 11:00 AM CDT Consult [facility] Radiation Oncology [address] [place] [address] [place] [address] Adriel Moore MD PhD Head and neck cancer (HCC) 09/28/2024 12:46 PM CDT - 09/28/2024 11:59 PM CDT Hospital Encounter [facility] - PET [address] [facility] Floor 8 [place] [address] Discharge Disposition: Discharge to home or self care 09/28/2024 12:45 PM CDT - 09/28/2024 11:59 PM CDT Hospital Encounter [facility] - PET [address] [facility] Floor 8 [place] [address] Head and neck cancer (HCC) Discharge Disposition: Discharge to home or self care 09/22/2024 Telephone [facility] [address] [facility] Advanced [facility] 1st [place] [phone] Chela Solis 09/22/2024 Documentation [facility] [address] [facility] 4th [place] [address] Maureen Hernández LCSW 09/21/2024 Telephone [facility] [address] [phone] Mariah Sharma, customer development representative Initial Call 09/21/2024 Telephone [facility] Radiation Oncology [address] [facility] [place] [address] Adriel Moore MD PhD 09/20/2024 Documentation [facility] [address] [phone] Maureen Hernández, FLOOR PRESS OPERATOR 09/20/2024 Orders Only [facility] Department of Otolaryngology Head-Neck Division [address] [facility] Floor 5 [place] [phone] Jair Sexton MD Head and neck cancer (HCC) (Primary Dx) from Last 3 Months Allergies No known active allergies Medications ferrous sulfate 325 mg (65 mg of elemental iron) tabletIndication s:Supplement Take 1 tablet (65 mg of elemental iron total) by mouth forest pathology associate professor before breakfast Active oxyCODONE (ROXICODONE) 5 mg immediate release tabletIndication s:Pain Take 1 tablet (5 mg total) by mouth every 4 (four) hours as needed for pain 28 tablet 10/13/19 25 Active acetaminophen (TYLENOL) 325 mg tablet Take 2 tablets (650 mg total) by mouth every 4 (four) hours as needed for pain (1st line) 10/13/19 25 Active ibuprofen (ADVIL,MOTRIN) 400 mg tablet Take 1 tablet (400 mg total) by mouth every 6 (six) hours as needed for pain (2nd line) 10/13/19 25 Active docusate sodium (COLACE) 100 mg capsuleIndicatio ns:constipation Take 1 capsule (100 mg total) by mouth 2 (two) times a day as needed for constipation 10/13/19 25 Active ampicillin (PRINCIPEN) 500 mg capsule Take 1 capsule (500 mg total) by mouth Will be finished 11/0410/22/19 25 Active dexAMETHasone (DECADRON) 4 mg tabletIndication s:Malignant neoplasm without specification of site (HCC),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) Take 2 tablets (8 mg) by mouth once daily on Days 2, 3 and 4 6 tablet 12/09/19 25 Active prochlorperazine (Compazine) 10 mg tabletIndication s:Malignant neoplasm without specification of site (HCC),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) Take 1 tablet (10 mg total) by mouth every 6 (six) hours as needed for nausea or vomiting Use first for nausea or vomiting 30 tablet 12/09/19 25 Active ondansetron (ZOFRAN) 8 mg tabletIndication s:Malignant neoplasm without specification of site (HCC),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) Take 1 tablet (8 mg total) by mouth every 8 (eight) hours as needed for nausea or vomiting Use if prochlorperazine does not stop nausea 30 tablet 12/09/19 25 Active Active Problems Problem Noted Date Diagnosed Date [...] specification of site 09/27/2024 Neck mass 09/09/2024 Social History Tobacco Use Types Packs/Day Years Used Date Smoking Tobacco: Former Cigarettes 0.8 3 0 06/16/1973 - 06/16/1976 Passive Smoke Exposure: Past Smokeless Tobacco: Never Tobacco Cessation:Counseling Given: Not Answered [facility] Utilities Answer Date Recorded In the past 12 months has th e electric, gas, oil, or water company threatened to shut off services in your home? No 09/22/2024 Social Connection and Isolation Panel [NHANES] A nswer Date Recorded In a typical week, how many times do you talk on the phone with family, friends, or neighbors? Patient unable to answer 09/22/2024 How often do you get togethe r with friends or relatives? Patient unable to answer 09/22/2024 How often do you attend chur ch or synagogue services? Patient unable to answer 09/22/2024 Do you belong to any clubs o r organizations such as uatsdin groups, unions, fraternal or athletic groups, or school groups? Patient unable to answer 09/22/2024 How often do you attend meet ings of the clubs or organizations you belong to? Patient unable to answer 09/22/2024 Are you , , di vorced, , never , or living with a partner? 09/22/2024 AUDIT-C Answer Date Recorded Q1: How often do you have a drink containing alcohol? Never 09/30/2024 Q2: How many drinks containi ng alcohol do you have on a typical day when you are drinking? Patient does not drink Q3: How often do you have si x or more drinks on one occasion? Never 09/30/2024 Overall Financial Resource Strain (CARDIA) Answe r Date Recorded How hard is it for you to pa y for the very basics like food, housing, medical care, and heating? Not hard at all 09/22/2024 PHQ-2 Answer Date Recorded PHQ-2 Total Score 0 09/22/2024 Hunger Vital Sign Answer Date Recorded Within the past 12 months, y ou worried that your food would run out before you got the money to buy more. Never true 09/23/19 25 Within the past 12 months, t he food you bought just didn't last and you didn't have money to get more. Never true 09/22/2024 PRAPARE - Transportation Answer Date Re corded In the past 12 months, has l ack of transportation kept you from medical appointments or from getting medications? No 02/2025 In the past 12 months, has l ack of transportation kept you from meetings, work, or from getting things needed for daily living? No 09/22/2024 Housing Stability Vital Sign Answer Ameya e Recorded In the last 12 months, was t here a time when you were not able to pay the mortgage or rent on time? No 09/22/2024 In the past 12 months, how m any times have you moved where you were living? 0 09/22/2024 At any time in the past 12 m [facility], were you homeless or living in a fdc (including now)? No 09/22/2024 Personal Safety Answer Date Recorded Have you ever been in or are you currently in a harmful physical or emotional relationship or is someone making you feel afraid or unsafe? 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[employer] Gender Identity Male 09/08/2024 11:39 AM CDT Sexual Orientation Straight 09/08/2024 11 :39 AM CDT Last Filed Vital Signs Vital Sign Reading Time Taken Comments Blood Pressure 142/97 12/16/2024 10:32 AM CDT Pulse 58 12/16/2024 10:32 AM CDT Temperature 36.4 C (97.5 F) 12/16/2024 10:28 AM CDT Respiratory Rate 18 12/16/2024 10:32 AM CDT Oxygen Saturation 100% 12/16/2024 10:32 AM CDT Inhaled Oxygen Concentration - - Weight 70.8 kg (156 lb) 12/16/2024 10:28 AM CDT Height 168 cm (5' 6.14) 12/09/2024 11:45 AM CDT Body Mass Index 25.07 12/09/2024 11:45 AM CDT Plan of Treatment Not on file Procedures Procedure Name Priority Date/Time Associated Diagnosis Comments RAD ONC ARIA SESSION SUMMARY 12/20/2024 9:02 AM CDT EGFR Routine 12/16/2024 10:01 AM CDT Malignant neoplasm without specification of site (HCC) BASIC METABOLIC PANEL Routine 12/16/2024 10:01 AM CDT Malignant neoplasm without specification of site (HCC) MAGNESIUM Routine 12/16/2024 10:01 AM CDT Malignant neoplasm without specification of site (HCC) RAD ONC ARIA SESSION SUMMARY 12/16/2024 9:54 AM CDT RAD ONC ARIA SESSION SUMMARY 12/15/2024 10:58 AM CDT RAD ONC ARIA SESSION SUMMARY 12/14/2024 9:37 AM CDT RAD ONC ARIA SESSION SUMMARY 12/13/2024 1:28 PM CDT RAD ONC ARIA SESSION SUMMARY 12/10/2024 11:29 AM CDT EGFR STAT 12/09/2024 9:23 AM CDT Malignant neoplasm without specification of site (HCC) 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) DIFFERENTIAL AUTO STAT 12/09/2024 9:2 3 AM CDT Malignant neoplasm without specification of site (HCC) 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) CBC WITH AUTO DIFFERENTIAL STAT 12/09/2024 9:23 AM CDT Malignant neoplasm without specification of site (HCC) 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) COMPREHENSIVE METABOLIC PANEL STAT 12/09/2024 9:23 AM CDT Malignant neoplasm without specification of site (HCC) 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) MAGNESIUM STAT 12/09/2024 9:23 AM CDT Malignant neoplasm without specification of site (HCC) 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) RAD ONC ARIA SESSION SUMMARY 12/09/2024 7:06 AM CDT RAD ONC ARIA SESSION SUMMARY 12/08/2024 3:52 PM CDT RAD ONC ARIA SESSION SUMMARY 12/07/2024 11:27 AM CDT EGFR Routine 10/28/2024 9:28 AM CDT Malignant neoplasm without specification of site (HCC) 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) DIFFERENTIAL AUTO Routine 10/28/2024 9:2 8 AM CDT Malignant neoplasm without specification of site (HCC) 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) CBC WITH AUTO DIFFERENTIAL Routine 10/28/2024 9:28 AM CDT Malignant neoplasm without specification of site (HCC) 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) MAGNESIUM Routine 10/28/2024 9:28 AM CDT Malignant neoplasm without specification of site (HCC) 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) PROTIME-INR Routine 10/28/2024 9:28 AM CDT Malignant neoplasm without specification of site (HCC) 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) APTT Routine 10/28/2024 9:28 AM CDT Malignant neoplasm without specification of site (HCC) 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) Case Notes 09/29@1022- Per Bakari via case msg needs to edit case-DMF B CHECK SAMPLE STAT 10/11/2024 9:41 AM CDT TYPE AND SCREEN 14 DAY Routine 09/30/2024 4:52 PM CDT Preoperative testing EGFR Routine 09/30/2024 10:02 AM CDT Malignant neoplasm without specification of site (HCC) Head and neck cancer (HCC) DIFFERENTIAL AUTO Routine 09/30/2024 10:02 AM CDT Malignant neoplasm without specification of site (HCC) Head and neck cancer (HCC) CBC WITH AUTO DIFFERENTIAL Routine 09/30/2024 10:02 AM CDT Malignant neoplasm without specification of site (HCC) Head and neck cancer (HCC) COMPREHENSIVE METABOLIC PANEL Routine 09/30/2024 10:02 AM CDT Malignant neoplasm without specification of site (HCC) Head and neck cancer (HCC) MAGNESIUM Routine 09/30/2024 10:02 AM CDT Malignant neoplasm without specification of site (HCC) Head and neck cancer (HCC) PROTIME-INR Routine 09/30/2024 10:02 AM CDT Malignant neoplasm without specification of site (HCC) Head and neck cancer (HCC) APTT Routine 09/30/2024 10:02 AM CDT Malignant neoplasm without specification of site (HCC) Head and neck cancer (HCC) PET/CT FDG SKULL TO THIGH Schedule Routine, Read Routine (OP Routine) 09/28/2024 3:34 PM CDT Head and neck cancer (HCC) from Last 3 Months Results * RAD ONC ARIA SESSION SUMMARY (12/20/2024 9:02 AM CDT) Course Name C1 HEAD NECK_LT ARIA Course Plan Date 12/01/2024 2:31 PM ARIA Elapsed Days 13 ARIA Treatment Start Date 12/07/2024 ARIA Treatment Site PTV1 ARIA Dose Given To Date (cGy) 1,800 ARIA Session Dosage Given (cGy) 200 ARIA Plan ID HEAD NECK_LT ARIA Fractions Treated 9 ARIA Prescribed Dose Per Fraction (cGy) 200 ARIA Prescribed Total Dose (cGy) 3,000 ARIA 12/20/2024 9:02 AM CDT us Not In File Miscellaneous RADIATION ONCOLOGY ORD ERABLES Final Result ARIA * (ABNORMAL) eGFR (12/16/2024 10:01 AM CDT) eGFR 51(L) >=60 mL/min/1. 73 m2 Comment: Interpretive Data Reference Interval Normal >/= 90 mL/min/1.73m2 Mildly decreased* 60 - 89 mL/min/1.73m2 Mildly to moderately decreased 45 - 59 mL/min/1.73m2 Moderately to severely decreased 30 - 44 mL/min/1.73m2 Severely decreased 15 - 29 mL/min/1.73m2 Kidney Failure < 15 mL/min/1.73m2 *Relative to young adult level Estimated glomerular filtration rate is determined by the 2020 CKD-EPI equation recommended by the National Kidney Foundation (A Unifying Approach to GFR Estimation: Recommendations of the NKF-ASK Task Force on Reassessing the Inclusion of Race in Diagnosing Kidney Disease, JASN 2020). The CKD-EPI equation should not be used for patients with unstable renal function and has not been validated in children and those over 70. Current interpretive data was last reviewed 2021. Blood 12/16/2024 10:0 1 AM CDT 12/16/2024 10:23 AM CDT Antony Rubio MD LAB BLOOD ORDERABLES Final Result Performing Organization Address City/[facility]/ZIP Co de Phone Number [facility] [place] [address] * Magnesium (12/16/2024 10:01 AM CDT) Pathologist [facility] Magnesium 2.4 1.4 - 2.5 mg/dL Blood 12/16/2024 10:0 1 AM CDT 12/16/2024 10:23 AM CDT Antony Rubio MD LAB BLOOD ORDERABLES Final Result Performing Organization Address City/[facility]/ZIP Co de Phone Number [facility] [place] [address] * (ABNORMAL) Basic metabolic panel (12/16/2024 10:01 AM CDT) Pathologist [facility] Sodium 138 135 - 145 mmol/L Potassium, pl 4.7 3.3 - 4.9 mmol/L [facility] Chloride 103 97 - 110 mmol/L [facility] CO2 28 22 - 32 mmol/L [facility] Anion gap 7 2 - 15 mmol/L [facility] BUN 28(H) 6 - 25 mg/dL [facility] Creatinine 1.47(H) 0.80 - 1.30 mg/dL [facility] Glucose 100 70 - 199 mg/dL [facility] Comment: Interpretive Data Fasting glucose >/= 126 mg/dl is diagnostic for diabetes. Fasting is defined as no caloric intake for at least 8 hours. Fasting glucose between 100 mg/dl to 125 mg/dl is diagnostic of prediabetes. In a patient with classic symptoms of hyperglycemia or hyperglycemic crisis, a random glucose >/= 200 mg/dl is diagnostic for diabetes. In the absence of unequivocal hyperglycemia, results should be confirmed by repeat testing. The classification and Diagnosis of Diabetes Diabetes Care 2021; 46: S19-S40. Current interpretive data was last revised 2022. Calcium 9.5 8.5 - 10.3 mg/dL [facility] Blood 12/16/2024 10:0 1 AM CDT 12/16/2024 10:23 AM CDT us Antony Rubio MD LAB BLOOD ORDERABLES Final Result [facility] [place] [address] * RAD ONC ARIA SESSION SUMMARY (12/16/2024 9:54 AM CDT) Pathologist [facility] Course Name C1 HEAD NECK_LT ARIA Course Plan Date 12/01/2024 2:31 PM ARIA Elapsed Days 9 ARIA Treatment Start Date 12/07/2024 ARIA Treatment Site PTV1 ARIA Dose Given To Date (cGy) 1,600 ARIA Session Dosage Given (cGy) 200 ARIA Plan ID HEAD NECK_LT ARIA Fractions Treated 8 ARIA Prescribed Dose Per Fraction (cGy) 200 ARIA Prescribed Total Dose (cGy) 3,000 ARIA 12/16/2024 9:54 AM CDT us Not In File Miscellaneous RADIATION ONCOLOGY ORD ERABLES Final Result MOLLY * RAD ONC ARIA SESSION SUMMARY (12/15/2024 10:58 AM CDT) Course Name C1 HEAD NECK_LT ARIA Course Plan Date 12/01/2024 2:31 PM ARIA Elapsed Days 8 ARIA Treatment Start Date 12/07/2024 ARIA Treatment Site PTV1 ARIA Dose Given To Date (cGy) 1,400 ARIA Session Dosage Given (cGy) 200 ARIA Plan ID HEAD NECK_LT ARIA Fractions Treated 7 ARIA Prescribed Dose Per Fraction (cGy) 200 ARIA Prescribed Total Dose (cGy) 3,000 ARIA 12/15/2024 10:5 8 AM CDT us Not In File Miscellaneous RADIATION ONCOLOGY ORD ERABLES Final Result ARIA * RAD ONC ARIA SESSION SUMMARY (12/14/2024 9:37 AM CDT) Course Name C1 HEAD NECK_LT ARIA Course Plan Date 12/01/2024 2:31 PM ARIA Elapsed Days 7 ARIA Treatment Start Date 12/07/2024 ARIA Treatment Site PTV1 ARIA Dose Given To Date (cGy) 1,200 ARIA Session Dosage Given (cGy) 200 ARIA Plan ID HEAD NECK_LT ARIA Fractions Treated 6 ARIA Prescribed Dose Per Fraction (cGy) 200 ARIA Prescribed Total Dose (cGy) 3,000 ARIA 12/14/2024 9:37 AM CDT us Not In File Miscellaneous RADIATION ONCOLOGY ORD ERABLES Final Result ARIA * RAD ONC ARIA SESSION SUMMARY (12/13/2024 1:28 PM CDT) Course Name C1 HEAD NECK_LT ARIA Course Plan Date 12/01/2024 2:31 PM ARIA Elapsed Days 6 ARIA Treatment Start Date 12/07/2024 ARIA Treatment Site PTV1 ARIA Dose Given To Date (cGy) 1,000 ARIA Session Dosage Given (cGy) 200 ARIA Plan ID HEAD NECK_LT ARIA Fractions Treated 5 ARIA Prescribed Dose Per Fraction (cGy) 200 ARIA Prescribed Total Dose (cGy) 3,000 ARIA 12/13/2024 1:28 PM CDT us Not In File Miscellaneous RADIATION ONCOLOGY ORD ERABLES Final Result Performing Organization Address [facility] Co de Phone Number MOLLY * RAD ONC ARIA SESSION SUMMARY (12/10/2024 11:29 AM CDT) Course Name C1 HEAD NECK_LT ARIA Course Plan Date 12/01/2024 2:31 PM ARIA Elapsed Days 3 ARIA Treatment Start Date 12/07/2024 ARIA Treatment Site PTV1 ARIA Dose Given To Date (cGy) 800 ARIA Session Dosage Given (cGy) 200 ARIA Plan ID HEAD NECK_LT ARIA Fractions Treated 4 ARIA Prescribed Dose Per Fraction (cGy) 200 ARIA Prescribed Total Dose (cGy) 3,000 ARIA 12/10/2024 11:2 9 AM CDT us Not In File Miscellaneous RADIATION ONCOLOGY ORD ERABLES Final Result MOLLY * eGFR (12/09/2024 9:23 AM CDT) eGFR 73 >=60 mL/min/1. 73 m2 Comment: Interpretive Data Reference Interval Normal >/= 90 mL/min/1.73m2 Mildly decreased* 60 - 89 mL/min/1.73m2 Mildly to moderately decreased 45 - 59 mL/min/1.73m2 Moderately to severely decreased 30 - 44 mL/min/1.73m2 Severely decreased 15 - 29 mL/min/1.73m2 Kidney Failure < 15 mL/min/1.73m2 *Relative to young adult level Estimated glomerular filtration rate is determined by the 2020 CKD-EPI equation recommended by the National Kidney Foundation (A Unifying Approach to GFR Estimation: Recommendations of the NKF-ASK Task Force on Reassessing the Inclusion of Race in Diagnosing Kidney Disease, JASN 2020). The CKD-EPI equation should not be used for patients with unstable renal function and has not been validated in children and those over 70. Current interpretive data was last reviewed 2021. Blood 12/09/2024 9:23 AM CDT 12/09/2024 9:26 AM CDT Estela Wong NP LAB BLOOD ORDERABLES Final Result [facility] [place] [address] * Differential, auto (12/09/2024 9:23 AM CDT) Neutrophil abs 3.86 1.50 - 6.50 K/cumm Comment:Testing performed by : [facility], [address] [place], [place] [phone] Lymphocyte abs 1.45 0.80 - 3.30 K/cumm CERSLOAN BJ Comment:Testing performed by : [facility], [address] [place] [phone] Monocyte abs 0.55 0.20 - 0.80 K/cumm CERSLOAN MCCLENDON Comment:Testing performed by : [facility], [address] [place] [address] Eosinophil abs 0.29 0.00 - 0.50 K/cumm CERSLOAN MCCLENDON Comment:Testing performed by : [facility], [address] [place] [address] Basophil abs 0.03 0.00 - 0.10 K/cumm CERSLOAN BJ Comment:Testing performed by : [facility], [address] [place] [phone] Neutrophil pct 62.5 % CERSLOAN MCCLENDON Comment: Interpretive Data Percent cell count reference ranges are not reported, since discordance with absolute values may lead to misinterpretation of CBC data. Current Interpretive Data was last revised on 2017. Testing performed by: [facility], [address] [place] [phone] Lymphocyte pct 23.4 % CERSLOAN MCCLENDON Comment: Interpretive Data Percent cell count reference ranges are not reported, since discordance with absolute values may lead to misinterpretation of CBC data. Current Interpretive Data was last revised on 2017. Testing performed by: [facility], [address] [place] [phone] Monocyte pct 8.9 % CERSLOAN MCCLENDON Comment: Interpretive Data Percent cell count reference ranges are not reported, since discordance with absolute values may lead to misinterpretation of CBC data. Current Interpretive Data was last revised on 2017. Testing performed by: [facility], [address] [place] [phone] Eosinophil pct 4.7 % [facility] Comment: Interpretive Data Percent cell count reference ranges are not reported, since discordance with absolute values may lead to misinterpretation of CBC data. Current Interpretive Data was last revised on 2017. Testing performed by: [facility], [address] [place] [phone] Basophil pct 0.6 % CERSLOAN MCCLENDON Comment: Interpretive Data Percent cell count reference ranges are not reported, since discordance with absolute values may lead to misinterpretation of CBC data. Current Interpretive Data was last revised on 2017. Testing performed by: [facility], [address] [place] [phone] Blood 12/09/2024 9:23 AM CDT 12/09/2024 9:24 AM CDT us Estela Wong CHIP [employer]UNER LAB BLOOD ORDERABLES Final Result [facility] [place] [address] * CBC with auto differential (12/09/2024 9:23 AM CDT) WBC 6.18 3.80 - 9.90 K/cumm Comment:Testing performed by : [facility], [address] [place] [address] Hgb 14.2 13.0 - 17.5 g/dL CERNER BJ Comment:Testing performed by : [facility], [address] [place] [address] Hct 43.4 38.9 - 50.3 % CERNER BJ Comment:Testing performed by : [facility], [address] [place] [address] Plt 205 150 - 400 K/cumm CERNER BJ Comment:Testing performed by : [facility], [address] [place] [address] MPV 9.0 6.8 - 10.4 fL CERNER BJ Comment:Testing performed by : [facility], [address] [place] [address] RBC 4.88 4.30 - 5.80 M/cumm CERNER BJ Comment:Testing performed by : [facility], [address] [place] [address] MCV 88.8 81.3 - 96.4 fL CERNER BJ Comment:Testing performed by : [facility], [address] [place] [address] MCH 29.1 27.1 - 33.3 pg CERNER BJ Comment:Testing performed by : [facility], [address] [place] [address] MCHC 32.7 32.3 - 35.7 g/dL CERNER BJ Comment:Testing performed by : [facility], [address] [place] [address] RDW CV 14.2 11.1 - 14.9 % CERNER BJ Comment:Testing performed by : [facility], [address] [place] [address] NRBC abs 0.00 0.00 - 0.01 K/cumm CERNER [facility]JH Comment:Testing performed by : [facility], [facility] [place] [phone] Blood 12/09/2024 9:23 AM CDT 12/09/2024 9:24 AM CDT Estela Wong NP LAB BLOOD ORDERABLES Final Result Performing Organization Address City/[facility]/ZIP Co de Phone Number [facility] [place] [address] * Magnesium (12/09/2024 9:23 AM CDT) [facility] Magnesium 2.3 1.4 - 2.5 mg/dL Blood 12/09/2024 9:23 AM CDT 12/09/2024 9:26 AM CDT Estela Wong CHIP T[employer]ER LAB BLOOD ORDERABLES Final Result Performing Organization Address City/[facility] Co de Phone Number [facility] Department [place] [address] * Comprehensive metabolic panel (12/09/2024 9:23 AM CDT) Pathologist [facility] Sodium 138 135 - 145 mmol/L Potassium, pl 4.2 3.3 - 4.9 mmol/L [facility] Chloride 104 97 - 110 mmol/L [facility] CO2 26 22 - 32 mmol/L [facility] Anion gap 8 2 - 15 mmol/L [facility] BUN 17 6 - 25 mg/dL [facility] Creatinine 1.08 0.80 - 1.30 mg/dL [facility] Glucose 123 70 - 199 mg/dL [facility] Comment: Interpretive Data Fasting glucose >/= 126 mg/dl is diagnostic for diabetes. Fasting is defined as no caloric intake for at least 8 hours. Fasting glucose between 100 mg/dl to 125 mg/dl is diagnostic of prediabetes. In a patient with classic symptoms of hyperglycemia or hyperglycemic crisis, a random glucose >/= 200 mg/dl is diagnostic for diabetes. In the absence of unequivocal hyperglycemia, results should be confirmed by repeat testing. The classification and Diagnosis of Diabetes Diabetes Care 2021; 46: S19-S40. Current interpretive data was last revised 2022. Calcium 9.2 8.5 - 10.3 mg/dL CERNER [facility] Bilirubin, total 0.4 0.1 - 1.2 mg/dL [facility] Protein, pl 7.5 6.5 - 8.5 g/dL CERNER [facility] Albumin 4.3 3.5 - 5.0 g/dL CERNER [facility] Alk phos 79 40 - 130 Units/L CERNER [facility] ALT 13 7 - 55 Units/L [facility] AST 22 10 - 50 Units/L [facility] Blood 12/09/2024 9:23 AM CDT 12/09/2024 9:26 AM CDT us Estela Wong NP LAB BLOOD ORDERABLES Final Result [facility] [place] [address] * RAD ONC ARIA SESSION SUMMARY (12/09/2024 7:06 AM CDT) Course Name C1 HEAD NECK_LT ARIA Course Plan Date 12/01/2024 2:31 PM ARIA Elapsed Days 2 ARIA Treatment Start Date 12/07/2024 ARIA Treatment Site PTV1 ARIA Dose Given To Date (cGy) 600 ARIA Session Dosage Given (cGy) 200 ARIA Plan ID HEAD NECK_LT ARIA Fractions Treated 3 ARIA Prescribed Dose Per Fraction (cGy) 200 ARIA Prescribed Total Dose (cGy) 3,000 ARIA 12/09/2024 7:06 AM CDT us Not In File Miscellaneous RADIATION ONCOLOGY ORD ERABLES Final Result ARIA * RAD ONC ARIA SESSION SUMMARY (12/08/2024 3:52 PM CDT) Course Name C1 HEAD NECK_LT ARIA Course Plan Date 12/01/2024 2:31 PM ARIA Elapsed Days 1 ARIA Treatment Start Date 12/07/2024 ARIA Treatment Site PTV1 ARIA Dose Given To Date (cGy) 400 ARIA Session Dosage Given (cGy) 200 ARIA Plan ID HEAD NECK_LT ARIA Fractions Treated 2 ARIA Prescribed Dose Per Fraction (cGy) 200 ARIA Prescribed Total Dose (cGy) 3,000 ARIA 12/08/2024 3:52 PM CDT us Not In File Miscellaneous RADIATION ONCOLOGY ORD ERABLES Final Result Performing Organization Address [facility] Co de Phone Number MOLLY * RAD ONC ARIA SESSION SUMMARY (12/07/2024 11:27 AM CDT) Course Name C1 HEAD NECK_LT ARIA Course Plan Date 12/01/2024 2:31 PM ARIA Elapsed Days 0 ARIA Treatment Start Date 12/07/2024 ARIA Treatment Site PTV1 ARIA Dose Given To Date (cGy) 200 ARIA Session Dosage Given (cGy) 200 ARIA Plan ID HEAD NECK_LT ARIA Fractions Treated 1 ARIA Prescribed Dose Per Fraction (cGy) 200 ARIA Prescribed Total Dose (cGy) 3,000 ARIA 12/07/2024 11:2 7 AM CDT us Not In File Miscellaneous RADIATION ONCOLOGY ORD ERABLES Final Result MOLLY * eGFR (10/28/2024 9:28 AM CDT) eGFR 75 >=60 mL/min/1. 73 m2 Comment: Interpretive Data Reference Interval Normal >/= 90 mL/min/1.73m2 Mildly decreased* 60 - 89 mL/min/1.73m2 Mildly to moderately decreased 45 - 59 mL/min/1.73m2 Moderately to severely decreased 30 - 44 mL/min/1.73m2 Severely decreased 15 - 29 mL/min/1.73m2 Kidney Failure < 15 mL/min/1.73m2 *Relative to young adult level Estimated glomerular filtration rate is determined by the 2020 CKD-EPI equation recommended by the National Kidney Foundation (A Unifying Approach to GFR Estimation: Recommendations of the NKF-ASK Task Force on Reassessing the Inclusion of Race in Diagnosing Kidney Disease, JASN 2020). The CKD-EPI equation should not be used for patients with unstable renal function and has not been validated in children and those over 70. Current interpretive data was last reviewed 2021. Blood 10/28/2024 9:28 AM CDT 10/28/2024 9:35 AM CDT us Faisal Montalvo MD LAB BLOOD ORDERABLES Final Result [facility] [place] [address] * Differential, auto (10/28/2024 9:28 AM CDT) Neutrophil abs 3.86 1.50 - 6.50 K/cumm Comment:Testing performed by : [facility], [address] [place], [place] [phone] Lymphocyte abs 1.26 0.80 - 3.30 K/cumm PAO MCCLENDON Comment:Testing performed by : [facility], [address] [place] [phone] Monocyte abs 0.61 0.20 - 0.80 K/cumm PAO MCCLENDON Comment:Testing performed by : [facility], [address] [place] [address] Eosinophil abs 0.22 0.00 - 0.50 K/cumm PAO MCCLENDON Comment:Testing performed by : [facility], [address] [place] [address] Basophil abs 0.05 0.00 - 0.10 K/cumm PAO MCCLENDON Comment:Testing performed by : [facility], [address] [place] [phone] Neutrophil pct 64.4 % CERSLOAN MCCLENDON Comment: Interpretive Data Percent cell count reference ranges are not reported, since discordance with absolute values may lead to misinterpretation of CBC data. Current Interpretive Data was last revised on 2017. Testing performed by: [facility], [address] [place] [phone] Lymphocyte pct 21.0 % PAO MCCLENDON Comment: Interpretive Data Percent cell count reference ranges are not reported, since discordance with absolute values may lead to misinterpretation of CBC data. Current Interpretive Data was last revised on 2017. Testing performed by: [facility], [address] [place] [phone] Monocyte pct 10.2 % PAO [facility]ON Comment: Interpretive Data Percent cell count reference ranges are not reported, since discordance with absolute values may lead to misinterpretation of CBC data. Current Interpretive Data was last revised on 2017. Testing performed by: [facility], [address] [place] [address] Eosinophil pct 3.6 % PAO MCCLENDON Comment: Interpretive Data Percent cell count reference ranges are not reported, since discordance with absolute values may lead to misinterpretation of CBC data. Current Interpretive Data was last revised on 2017. Testing performed by: [facility], [address] [place] [phone] Basophil pct 0.8 % PAO [facility] Comment: Interpretive Data Percent cell count reference ranges are not reported, since discordance with absolute values may lead to misinterpretation of CBC data. Current Interpretive Data was last revised on 2017. Testing performed by: [facility], [address] [place] [phone] Blood 10/28/2024 9:28 AM CDT 10/28/2024 9:31 AM CDT us Faisal Montalvo MD LAB BLOOD ORDERABLES Final Result [facility] [place] [address] * (ABNORMAL) CBC with auto differential (10/28/2024 9:28 AM CDT) WBC 5.99 3.80 - 9.90 K/cumm Comment:Testing performed by : [facility], [address] [place] [address] Hgb 13.0 13.0 - 17.5 g/dL CERNER BJ Comment:Testing performed by : [facility], [address] [place] [address] Hct 38.8(L) 38.9 - 50.3 % CERNER BJ Comment:Testing performed by : [facility], [address] [place] [address] Plt 286 150 - 400 K/cumm CERNER BJ Comment:Testing performed by : [facility], [address] [place] [address] MPV 8.6 6.8 - 10.4 fL CERNER BJ Comment:Testing performed by : [facility], [address] [place] [address] RBC 4.45 4.30 - 5.80 M/cumm CERNER BJ Comment:Testing performed by : [facility], [address] [place] [address] MCV 87.3 81.3 - 96.4 fL CERNER BJ Comment:Testing performed by : [facility], [address] [place] [address] MCH 29.3 27.1 - 33.3 pg CERNER BJ Comment:Testing performed by : [facility], [address] [place] [address] MCHC 33.6 32.3 - 35.7 g/dL CERNER BJ Comment:Testing performed by : [facility], [address] [place] [address] RDW CV 14.2 11.1 - 14.9 % CERNER BJ Comment:Testing performed by : [facility], [address] [place] [address] NRBC abs 0.00 0.00 - 0.01 K/cumm CERNER [facility] Comment:Testing performed by : [facility], [address] [place] [phone] Blood 10/28/2024 9:28 AM CDT 10/28/2024 9:31 AM CDT Faisal Montalvo MD LAB BLOOD ORDERABLES Final Result Performing Organization Address [facility] de Phone Number [facility] [place] [address] * aPTT (10/28/2024 9:28 AM CDT) aPTT 30 28 - 38 sec Comment: Interpretive Data Heparin therapeutic range: 66.0 - 100.0 seconds. Range based on correlation with therapeutic heparin activity range of 0.3 - 0.7 Units/mL. Current interpretive data was last revised on 2023. Blood 10/28/2024 9:28 AM CDT 10/28/2024 9:46 AM CDT Faisal Montalvo MD LAB BLOOD ORDERABLES Final Result Performing Organization Address [facility] [facility] de Phone Number [facility] [place] [address] * Protime-INR (10/28/2024 9:28 AM CDT) PT 10.1 9.7 - 13.0 sec INR 0.94 0.90 - 1.20 [facility] Comment: Interpretive data Oral anticoagulant therapeutic ranges: Venous thromboembolism prophylaxis or treatment: 2.0-3.0 CARDIOLOGY Standard range: 2.0-3.0 High-intensity range: 2.5-3.5 Refer to indication-specific guidelines for appropriate target ranges for prosthetic heart valve replacement. Current interpretive data was last revised on 2019. Blood 10/28/2024 9:28 AM CDT 10/28/2024 9:46 AM CDT Faisal Montalvo MD LAB BLOOD ORDERABLES Final Result Performing Organization Address City/[facility]/ZIP Co de Phone Number [facility] [place] [address] * Magnesium (10/28/2024 9:28 AM CDT) Pathologist [facility] Magnesium 2.3 1.4 - 2.5 mg/dL Blood 10/28/2024 9:28 AM CDT 10/28/2024 9:35 AM CDT Faisal Montalvo MD LAB BLOOD ORDERABLES Final Result Performing Organization Address [facility] de Phone Number [facility] [place] [address] * Comprehensive metabolic panel (10/28/2024 9:28 AM CDT) [facility] Sodium 139 135 - 145 mmol/L Potassium, pl 4.6 3.3 - 4.9 mmol/L [facility] Chloride 106 97 - 110 mmol/L [facility] CO2 26 22 - 32 mmol/L [facility] Anion gap 7 2 - 15 mmol/L [facility] BUN 19 6 - 25 mg/dL [facility] Creatinine 1.07 0.80 - 1.30 mg/dL [facility] Glucose 91 70 - 199 mg/dL [facility] Comment: Interpretive Data Fasting glucose >/= 126 mg/dl is diagnostic for diabetes. Fasting is defined as no caloric intake for at least 8 hours. Fasting glucose between 100 mg/dl to 125 mg/dl is diagnostic of prediabetes. In a patient with classic symptoms of hyperglycemia or hyperglycemic crisis, a random glucose >/= 200 mg/dl is diagnostic for diabetes. In the absence of unequivocal hyperglycemia, results should be confirmed by repeat testing. The classification and Diagnosis of Diabetes Diabetes Care 202; 46: S19-S40. Current interpretive data was last revised 2022. Calcium 8.8 8.5 - 10.3 mg/dL [facility] Bilirubin, total 0.3 0.1 - 1.2 mg/dL [facility] Protein, pl 7.2 6.5 - 8.5 g/dL [facility] Albumin 3.9 3.5 - 5.0 g/dL [facility] Alk phos 74 40 - 130 Units/L [facility] ALT 12 7 - 55 Units/L [facility] AST 20 10 - 50 Units/L [facility] Blood 10/28/2024 9:28 AM CDT 10/28/2024 9:35 AM CDT us Faisal Montalvo MD LAB BLOOD ORDERABLES Final Result [facility] [place] [address] * Surgical pathology (10/11/2024 2:31 PM CDT) Tissue (Neck) 10/11/2024 2:3 1 PM CDT Tissue specimen (specimen) (Neck) 10/11/2024 2:46 PM CDT Tissue specimen (specimen) (Neck) 10/11/2024 3:53 PM CDT Tissue specimen (specimen) (Neck) 10/11/2024 3:54 PM CDT Tissue specimen (specimen) (Neck) 10/11/2024 3:54 PM CDT Narrative PATHOLOGY [facility] - 10/14/2024 6:33 PM CDT EPIC results best viewed via link to PDF [facility] [place] [address] Note to Patients: This report may contain a detailed description of human tissue sent by a health care provider to the laboratory for pathologic evaluation. The content of this report is essential for diagnosis and may provide important critical findings. This information may be unfamiliar to patients to review without a medical professional present. It is advised that the patient review this report in the presence of a health care provider who can answer questions and explain the details. SURGICAL PATHOLOGY REPORT FINAL Patient Name: NAZIA MCCORDBatool Gender: M : 1955 (Age: 68) Address: [address] [place], [place] [address] Hospital #: [id number] Taken:10/11/2024 Received:10/11/2024 Reported: 10/14/2024 Patient Type: [facility] Inpatient Service: Ear Nose Throat Location: [place] [address] Physician(s): Mariya Julian M.D. Diagnosis: A. Oropharynx, medial tongue base, excisional biopsy (AFR1): - No evidence of malignancy B. 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 Oropharynx, lateral tongue base, excisional biopsy (CFR1): - No evidence of malignancy D. Lymph nodes, left level three, dissection: - No evidence of malignancy in 12 nodes (0/12) E. Lymph nodes, left level four, dissection: - No evidence of malignancy in four nodes (0/4) [facility]/10/14/2024 18:33 By this signature, I attest that the above diagnosis is based upon my personal examination of the slides(and/or other material indicated in the diagnosis). Chela Hernandez MD, PhD Report Electronically Reviewed and Signed Out By Chela Hernandez MD, PhD 10/14/2024 18:33:11 Intraoperative Consultation: Frozen Section Diagnosis AFR1: Medial tongue base - Negative for tumor By Nazia Medrano M.D., Shaji Quiroz M.D. CFR1: Lateral tongue base - Negative for tumor By Nazia Medrano M.D., Shaji Quiroz M.D. Gross Consultation A: Medial tongue base Received fresh, labeled with the patient's identifiers and Medial tongue base is a fragment of vila-pink tissue measuring 2.0 x 1.5 x 0.4 cm. Submitted entirely for frozen. By Nazia Medrano M.D., Shaji Sadegh, M.D. C: Lateral tongue base Received fresh, labeled with the patient's identifiers and Lateral tongue base is a fragment of vila-pink tissue measuring 2.1 x 1.8 x 0.4 cm. The tissue includes a mucosal surface and a cauterized surface. The cauterized surface is inked black. Serially sectioned and submitted entirely for frozen. By Nazia Medrano M.D., Shaji Quiroz M.D. I personally examined the relevant preparation(s) or a microscopic image of the relevant preparation(s) for the specimen(s) while the surgical procedure was still underway and rendered or confirmed the diagnosis(es) Report Electronically reviewed and Signed out by Nazia Medrano M.D. 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 Operative Procedure: Robotic cholecystectomy, tonsillectomy, neck exploration, and neck dissection. Specimen(s) Received: A: Medial tongue base B: Left level 2 C: Laderal tongue base D: Left level 3 E: Left level 4 Gross Description: Received in five formalin jars labeled with the patient's identifiers. A. Labeled medial tongue base is a cassette with frozen section remnant labeled AFR1. Jar 0. B. Labeled left level 2 is a 5.5 x 5 x 2.5 cm portion of fibrofatty tissue. This includes a large 5.5 x 3 x 2.5 cm grossly positive lymph node with a yellow-vila fleshy cut surface. The remaining adipose tissue includes multiple additional smaller grossly positive lymph nodes. Labeled B 1 to B3-sections of the largest grossly positive lymph node; B4 to B6- six intact putative lymph nodes in each cassette; B7-B10-a single sectioned lymph node in each cassette. Jar 1. C. Labeled lateral tongue base is a cassette with frozen section remnant labeled CFR1. Jar 0. D. Labeled left level 3 is a 4 x 3.5 x 0.8 cm portion of fibrofatty tissue. Sectioning and palpation shows multiple putative lymph nodes ranging from 0.4- 1.4 cm in greatest dimension. Labeled D1-four intact putative lymph nodes; D2-five intact putative lymph nodes; D3 to B5-single sectioned lymph node in each cassette. Jar 1. E. Labeled left level 4 is a 3 x 2.5 x 0.5 cm portion of fibrofatty tissue. Sectioning and palpation shows multiple putative lymph nodes ranging from 0.2-1 cm in greatest dimension) labeled E 1-three intact putative lymph nodes;E2-two intact putative lymph nodes. Jar 1. 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 CAP VERSION: Pharynx 4.0.0.1 By this signature, I attest that the above diagnosis is based upon my personal examination of the slides(and/or other material). Addenda/Procedures The performance characteristics of some immunohistochemical stains, fluorescence in-situ hybridization tests and immunophenotyping by flow cytometry cited in this report (if any) were determined by the Surgical Pathology and Flow Cytometry Departments at [facility] as part of an ongoing quality control expert program and in compliance with federally mandated regulations drawn from the Clinical Laboratory Improvement Act of 1988 (CLIA '88). Some of these tests rely on the use of analyte specific reagents and are subject to specific labeling requirements by the US Food and Drug Administration. Such diagnostic tests may only be performed in a facility that is certified by the Department of Health and Human Services as a high complexity laboratory under CLIA '88. The FDA has determined that such clearance or approval is not necessary. This test is used for clinical purposes. It should not be regarded as investigational or for research. Nevertheless, federal rules concerning the medical use of analyte specific reagents require that the following disclaimer be attached to the report: This test was developed and its performance characteristics determined by the Surgical Pathology and Flow Cytometry Departments of [facility]. It has not been cleared or approved by the U. S. Food and Drug Administration. IMAGES AND SCANNED DOCUMENTS, IF INCLUDED, ONLY VIEWABLE IN PDF VERSION OF REPORT us Jair Sexton MD LAB PATHOLOGY ORDERABLES F inal Result PATHOLOGY [facility] 3rd Floor [place], [place] [phone] * AL AN ELECTIVE ENDOTRACHEAL AIRWAY, AL AN PROCEDURE PLACEHOLDER (10/11/2024 2:16 PM CDT) Narrative Jonathan Ochoa MD - 10/11/2024 2:16 PM CDT Jonathan Ochoa MD 10/11/2024 2:19 PM Airway Patient location: OR Urgency: elective Date/time: 10/11/2024 1:54 PM Indications for airway management: anesthesia Difficult airway: no Staff: Placed by: Anesthesiologist: Jonathan Ochoa MD Emergent airway documentation: Risks and benefits discussed: yes Consent obtained: yes Consent given by: patient Airway prep: Preoxygenated: yes Patient position: sniffing MILS maintained throughout: yes Mask difficulty assessment: 1 - vent by mask Spontaneous ventilation during airway: absent Sedation level during airway: GA Final airway details: Final airway type: endotracheal airway Tube type: ETT ETT size: 7.0 mm Cuffed: yes Technique used for successful ETT placement: video laryngoscopy Insertion site: oral Video blade type: Glidescope Blade size: 2 Cormack-Lehane (video): grade I - full view of glottis Initial cuff pressure: 25 cm H2O Cuff inflated with: air ETT to lips: 22 cm Placement verified by: auscultation and CO2 detection Airway secured with: silk tape and tegaderm Number of attempts: 1 Planned trial extubation: yes Additional comments: No complications Jonathan Ochoa MD ANESTHESIA ORDERA BLES Final Result * Check Sample (10/11/2024 9:41 AM CDT) ABO Rh A Positive [facility] HCLL OTHER 10/11/2024 9:41 AM CDT 10/11/2024 10:06 AM CDT Jair Sexton MD LAB BLOOD ORDERABLES Final Result Performing Organization Address City/[facility] Co de Phone Number [facility] [place] [address] [facility] * TYPE AND SCREEN 14 DAY (09/30/2024 4:52 PM CDT) ABO Rh A Positive [place], indirect Negative [facility] Blood 09/30/2024 4:52 PM CDT 09/30/2024 7:06 PM CDT Narrative [facility] - 09/30/2024 8:00 PM CDT Is this test being ordered in advance for a procedure?->Yes Expected date of procedure:->10/11/24 Has the patient been transfused in the past 3 months?->No Juanita Wilson NP LAB BLOOD BANK TEST O RDERABLES Final Result Performing Organization Address [facility] Co de Phone Number [facility] [place] [address] * eGFR (09/30/2024 10:02 AM CDT) Pathologist [facility] eGFR 77 >=60 mL/min/1. 73 m2 Comment: Interpretive Data Reference Interval Normal >/= 90 mL/min/1.73m2 Mildly decreased* 60 - 89 mL/min/1.73m2 Mildly to moderately decreased 45 - 59 mL/min/1.73m2 Moderately to severely decreased 30 - 44 mL/min/1.73m2 Severely decreased 15 - 29 mL/min/1.73m2 Kidney Failure < 15 mL/min/1.73m2 *Relative to young adult level Estimated glomerular filtration rate is determined by the 2020 CKD-EPI equation recommended by the National Kidney Foundation (A Unifying Approach to GFR Estimation: Recommendations of the NKF-ASK Task Force on Reassessing the Inclusion of Race in Diagnosing Kidney Disease, JASN 2020). The CKD-EPI equation should not be used for patients with unstable renal function and has not been validated in children and those over 70. Current interpretive data was last reviewed 2021. Blood 09/30/2024 10:0 2 AM CDT 09/30/2024 10:12 AM CDT us Fasial Montalvo MD LAB BLOOD ORDERABLES Final Result [facility] Department of Laboratories [place] [phone] * Differential, auto (09/30/2024 10:02 AM CDT) Neutrophil abs 3.78 1.50 - 6.50 K/cumm Comment:Testing performed by : [facility], [address] [place], [place] [phone] Lymphocyte abs 1.24 0.80 - 3.30 K/cumm [facility] Comment:Testing performed by : [facility], [address] [place] [address] Monocyte abs 0.57 0.20 - 0.80 K/cumm [facility] Comment:Testing performed by : [facility], [address] [place], [place] [phone] Eosinophil abs 0.16 0.00 - 0.50 K/cumm [facility] Comment:Testing performed by : [facility], [address] [place] [phone] Basophil abs 0.04 0.00 - 0.10 K/cumm [facility] Comment:Testing performed by : [facility], [address] [place] [phone] Neutrophil pct 65.3 % [facility] Comment: Interpretive Data Percent cell count reference ranges are not reported, since discordance with absolute values may lead to misinterpretation of CBC data. Current Interpretive Data was last revised on 2017. Testing performed by: [facility], [address] [place] [phone] Lymphocyte pct 21.4 % [facility] Comment: Interpretive Data Percent cell count reference ranges are not reported, since discordance with absolute values may lead to misinterpretation of CBC data. Current Interpretive Data was last revised on 2017. Testing performed by: [facility], [address] [place] [phone] Monocyte pct 9.8 % [facility] Comment: Interpretive Data Percent cell count reference ranges are not reported, since discordance with absolute values may lead to misinterpretation of CBC data. Current Interpretive Data was last revised on 2017. Testing performed by: [facility], [address] [place] [phone] Eosinophil pct 2.8 % [facility] Comment: Interpretive Data Percent cell count reference ranges are not reported, since discordance with absolute values may lead to misinterpretation of CBC data. Current Interpretive Data was last revised on 2017. Testing performed by: [facility], [address] [place] [phone] Basophil pct 0.7 % [facility] Comment: Interpretive Data Percent cell count reference ranges are not reported, since discordance with absolute values may lead to misinterpretation of CBC data. Current Interpretive Data was last revised on 2017. Testing performed by: [facility], [address] [place] [phone] Blood 09/30/2024 10:0 2 AM CDT 09/30/2024 10:11 AM CDT Faisal Montalvo MD LAB BLOOD ORDERABLES Final Result [facility] [place] [address] * (ABNORMAL) CBC with auto differential (09/30/2024 10:02 AM CDT) WBC 5.79 3.80 - 9.90 K/cumm Comment:Testing performed by : [facility], [address] [place] [phone] Hgb 14.0 13.0 - 17.5 g/dL [facility] Comment:Testing performed by : [facility], [address] [place] [address] Hct 41.9 38.9 - 50.3 % [facility] Comment:Testing performed by : [facility], [address] [place] [address] Plt 270 150 - 400 K/cumm [facility] Comment:Testing performed by : [facility], [address] [place] [address] MPV 9.0 6.8 - 10.4 fL [facility] Comment:Testing performed by : [facility], [address] [place], [place] [phone] RBC 4.76 4.30 - 5.80 M/cumm [facility] Comment:Testing performed by : [facility], [address] [place], [place] [phone] MCV 88.1 81.3 - 96.4 fL [facility] Comment:Testing performed by : [facility], [address] [place] [address] MCH 29.4 27.1 - 33.3 pg [facility] Comment:Testing performed by : [facility], [address] [place] [address] MCHC 33.4 32.3 - 35.7 g/dL [facility] Comment:Testing performed by : [facility], [address] [place] [address] RDW CV 15.0(H) 11.1 - 14.9 % [facility] Comment:Testing performed by : [facility], [address] [place] [address] NRBC abs 0.00 0.00 - 0.01 K/cumm [facility] Comment:Testing performed by : [facility], [address] [place] [address] Blood 09/30/2024 10:0 2 AM CDT 09/30/2024 10:11 AM CDT us Faisal Montalvo MD LAB BLOOD ORDERABLES Final Result Performing Organization Address City/[facility] Co de Phone Number [facility] [place] [address] * aPTT (09/30/2024 10:02 AM CDT) aPTT 29 28 - 38 sec Comment: Interpretive Data Heparin therapeutic range: 66.0 - 100.0 seconds. Range based on correlation with therapeutic heparin activity range of 0.3 - 0.7 Units/mL. Current interpretive data was last revised on 2023. Blood 09/30/2024 10:0 2 AM CDT 09/30/2024 10:40 AM CDT Faisal Montalvo MD LAB BLOOD ORDERABLES Final Result Performing Organization Address [facility] de Phone Number [facility] [place] [address] * Protime-INR (09/30/2024 10:02 AM CDT) PT 10.7 9.7 - 13.0 sec INR 0.99 0.90 - 1.20 [facility] Comment: Interpretive data Oral anticoagulant therapeutic ranges: Venous thromboembolism prophylaxis or treatment: 2.0-3.0 CARDIOLOGY Standard range: 2.0-3.0 High-intensity range: 2.5-3.5 Refer to indication-specific guidelines for appropriate target ranges for prosthetic heart valve replacement. Current interpretive data was last revised on 2019. Blood 09/30/2024 10:0 2 AM CDT 09/30/2024 10:40 AM CDT Faisal Montalvo MD LAB BLOOD ORDERABLES Final Result Performing Organization Address [facility] Co de Phone Number [facility] [place] [address] * (ABNORMAL) Magnesium (09/30/2024 10:02 AM CDT) Magnesium 2.6(H) 1.4 - 2.5 mg/dL Blood 09/30/2024 10:0 2 AM CDT 09/30/2024 10:12 AM CDT us Faisal Montalvo MD LAB BLOOD ORDERABLES Final Result [facility] [place] [address] * Comprehensive metabolic panel (09/30/2024 10:02 AM CDT) Pathologist [facility] Sodium 139 135 - 145 mmol/L Potassium, pl 4.6 3.3 - 4.9 mmol/L [facility] Chloride 105 97 - 110 mmol/L [facility] CO2 26 22 - 32 mmol/L [facility] Anion gap 8 2 - 15 mmol/L [facility] BUN 19 6 - 25 mg/dL [facility] Creatinine 1.04 0.80 - 1.30 mg/dL [facility] Glucose 101 70 - 199 mg/dL [facility] Comment: Interpretive Data Fasting glucose >/= 126 mg/dl is diagnostic for diabetes. Fasting is defined as no caloric intake for at least 8 hours. Fasting glucose between 100 mg/dl to 125 mg/dl is diagnostic of prediabetes. In a patient with classic symptoms of hyperglycemia or hyperglycemic crisis, a random glucose >/= 200 mg/dl is diagnostic for diabetes. In the absence of unequivocal hyperglycemia, results should be confirmed by repeat testing. The classification and Diagnosis of Diabetes Diabetes Care 2021; 46: S19-S40. Current interpretive data was last revised 2022. Calcium 9.1 8.5 - 10.3 mg/dL [facility] Bilirubin, total 0.3 0.1 - 1.2 mg/dL [facility] Protein, pl 7.7 6.5 - 8.5 g/dL [facility] Albumin 4.3 3.5 - 5.0 g/dL [facility] Alk phos 70 40 - 130 Units/L [facility] ALT 18 7 - 55 Units/L [facility] AST 25 10 - 50 Units/L [facility] Blood 09/30/2024 10:0 2 AM CDT 09/30/2024 10:12 AM CDT Faisal Montalvo MD LAB BLOOD ORDERABLES Final Result [facility] [place] [address] * PET/CT FDG Skull to Thigh (09/28/2024 3:34 PM CDT) Anatomical Region Laterality Modality N/A Positron Emissio n Tomography (PET) 09/29/2024 9:17 AM CDT Impressions 09/29/2024 1:26 PM CDT 1. 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 2. Mildly hypermetabolic lymph nodes within level 2 and 3-4 cervical stations of the left neck concerning for additional disease. Dictated by: Gregor Elam M.D. The radiology attending physician has personally reviewed this study, and had reviewed and/or edited this written report and agrees with it. Electronically signed by: Neris Connolly M.D. Narrative 09/29/2024 1:26 PM CDT EXAMINATION: TUMOR FDG-PET/CT IMAGING DATE OF STUDY: 09/28/2024 SCANNER: [facility] RADIOPHARMACEUTICAL: 6.83 mCi F-18 Fluorodeoxyglucose (FDG) i.v. 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 The study is requested for initial staging. Initial treatment strategy. TECHNIQUE: The patient's fasting blood glucose level, measured by glucometer before injection of FDG, was 90 mg/dL. After intravenous administration of FDG, noncontrast CT images were obtained for attenuation correction and for fusion with emission PET images to allow for anatomical localization of PET findings. Emission PET images were then obtained. The study was interpreted on the [employer] workstation. The mean liver SUV (reported for quality process engineer purposes) is 2.0. The total scanned area was skull vertex to proximal thighs. Images of the body were obtained starting 81 minutes after injection of tracer. All reported SUVs are maximum SUVs, unless otherwise specified. COMPARISON: CT soft tissue neck 09/09/2024 DESCRIPTORS OF LESION FDG AVIDITY: Minimal: <= blood pool Mild: > blood pool and <= liver Moderate: > liver and <= 2x SUVmax liver Moderate to marked: >2x SUVmax liver and <= 3x SUVmax liver Marked: > 3x SUVmax liver FINDINGS: Enlarged lymph node within the left level 2 region measuring approximately 4.0 x 2.5 cm, with SUV max of 19.6. Additional subcentimeter mildly hypermetabolic lymph nodes are in the left level 3-4cervical station. Mild FGD activity is present in the right hilum, which is likely reactive. Small hiatal hernia with increased metabolic activity. Scattered areas of photopenia within the liver are consistent with hepatic cysts. The most FDG-avid lesion is within the left level 2 cervical station, has a maximum SUV of 19.6, and approximate axial dimensions of 4.[address] findings: Mild aortic and coronary artery atherosclerosis. Prostatomegaly. Procedure Note Neris Connolly MD - 09/29/2024 EXAMINATION: TUMOR FDG-PET/CT IMAGING DATE OF STUDY: 09/28/2024 SCANNER: [facility] RADIOPHARMACEUTICAL: 6.83 mCi F-18 Fluorodeoxyglucose (FDG) i.v. 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 The study is requested for initial staging. Initial treatment strategy. TECHNIQUE: The patient's fasting blood glucose level, measured by glucometer before injection of FDG, was 90 mg/dL. After intravenous administration of FDG, noncontrast CT images were obtained for attenuation correction and for fusion with emission PET images to allow for anatomical localization of PET findings. Emission PET images were then obtained. The study was interpreted on the [employer] workstation. The mean liver SUV (reported for quality process engineer purposes) is 2.0. The total scanned area was skull vertex to proximal thighs. Images of the body were obtained starting 81 minutes after injection of tracer. All reported SUVs are maximum SUVs, unless otherwise specified. COMPARISON: CT soft tissue neck 09/09/2024 DESCRIPTORS OF LESION FDG AVIDITY: Minimal: <= blood pool Mild: > blood pool and <= liver Moderate: > liver and <= 2x SUVmax liver Moderate to marked: >2x SUVmax liver and <= 3x SUVmax liver Marked: > 3x SUVmax liver FINDINGS: Enlarged lymph node within the left level 2 region measuring approximately 4.0 x 2.5 cm, with SUV max of 19.6. Additional subcentimeter mildly hypermetabolic lymph nodes are in the left level 3-4cervical station. Mild FGD activity is present in the right hilum, which is likely reactive. Small hiatal hernia with increased metabolic activity. Scattered areas of photopenia within the liver are consistent with hepatic cysts. The most FDG-avid lesion is within the left level 2 cervical station, has a maximum SUV of 19.6, and approximate axial dimensions of 4.[address] findings: Mild aortic and coronary artery atherosclerosis. Prostatomegaly. IMPRESSION: 1. 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 2. Mildly hypermetabolic lymph nodes within level 2 and 3-4 cervical stations of the left neck concerning for additional disease. Dictated by: Gregor Elam M.D. The radiology attending physician has personally reviewed this study, and had reviewed and/or edited this written report and agrees with it. Electronically signed by: Neris Connolly M.D. Jair Sexton MD IM PET PROCEDURES Final R esult from Last 3 Months Insurance MEDICARE [facility] MEDICARE ADVANTAGE MEDICARE RESEARCH [facility] Address: [address] [address] [place] [address] [facility]ICARE [facility] Address: [address] [address] [place] [address] [facility]ICARE [facility] Address: [address] [address] [place] [address] Advance Directives For more information, please contact: [phone] * Full Code (Latest Code Status on File) Date Activated Date Inactivated Comments 10/11/2024 7:59 PM 10/12/2024 6:37 PM Care Teams Dormitory Counselor Relationship Specialty Start Date End Date Destin Escalona MD [address] [address] PCP - General Family Medicine 05/02/20 Malachi Steen MD [address] [place] [address] [place] [address] Consulting Physician Otolaryngology 09/03/24 Mariah Sharma, RN Nurse Navigator 09/21/24 OpFaisal hernández MD [address] [place] [address] [address] [place] [address] Medical Oncologist/Heel Lining Paster Medical Oncology 09/22/24 Jair Sexton MD [address] [facility] DEPT OTOLARYNGOLOGY, [address] [address] Consulting Physician Otolaryngology 09/22/24 Adriel Moore MD PhD [address] [facility] [address] [place] [address] Radiation Oncologist Radiation Oncology 09/22/24 Maureen Hernández LCSW Tread Cutter 09/22/24
--- OUTSIDE RECORDS SUMMARY | 2024-12-20 14:57 | XMS_ITS | Encounter Summary ---
Author Organization [facility] Healthcare Address [address] [place] [address] Care Team Providers Care Roustabout Name Role Phone Destin Escalona MD Primary Care Provider [phone] Malachi Steen MD Unavailable [phone] Mariah Sharma RN Unavailable Unavailable Faisal Montalvo MD Unavailable [phone] Jair Sexton MD Unavailable [phone] Adriel Moore MD PhD Unavailable [phone] Maureen Hernández LCSW Unavailable Unavaila ble Encounter Details Date Type Department Care Team (Late st Contact Info) Description 12/20/2024 8:53 AM CDT Hospital Encounter [facility] Radiation Oncology [address] [facility] [place] [address] Social History Tobacco Use Types Packs/Day Years Used Date Smoking Tobacco: Former Cigarettes 0.8 3 0 06/16/1973 - 06/16/1976 Passive Smoke Exposure: Past Smokeless Tobacco: Never [facility] Utilities Answer Date Recorded In the past 12 months has [employer] electric, gas, oil, or water company threatened [...] often do you attend chur ch or mu-ism services? Patient unable to answer 09/22/2024 Do you belong to any clubs o r organizations such as christianity groups, unions, fraternal or athletic groups, or [...] any time in the past 12 m [facility], were you homeless or living in a retirement (including now)? No 09/22/2024 Personal Safety Answer Date Recorded Have you ever been in or are you currently in a harmful physical or emotional relationship or is someone making you feel afraid or unsafe? 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 Gender Identity Male 09/08/2024 11:39 AM CDT Sexual Orientation Straight 09/08/2024 11 :39 AM CDT documented as of this encounter Plan of Treatment Not on file documented as of this encounter Visit Diagnoses Not on filedocumented in this encounter Care Teams Roustabout Relationship Specialty Start Date End Date Destin Escalona MD [address] [address] PCP - General Family Medicine 05/02/20 Malachi Steen MD [address] [address] Consulting Physician Otolaryngology 09/03/24 Mariah Sharma, RN Nurse Navigator 09/21/24 Faisal Montalvo MD [address] [facility] [address] [place] [address] Medical Oncologist/Social Insurance Administrator Medical Oncology 09/22/24 Jair Sexton MD [address] [facility] DEPT OTOLARYNGOLOGY, [address] [address] Consulting Physician Otolaryngology 09/22/24 Adriel Moore MD PhD [address] [place] [address] Radiation Oncologist Radiation Oncology 09/22/24 Maureen Hernández LCSW Artificial Stone Applicator 09/22/24 documented as of this encounter
--- OUTSIDE RECORDS SUMMARY | 2024-12-20 14:57 | XMS_ITS | Clinical Summary ---
Author Organization [facility] [place] [address] [facility] [address] Address [address] [place] [address] Care Team Providers Care [employer] Phot[employer] Detailer Name Role Phone Destin Escalona MD Primary Care Provider + [phone] Malachi Steen MD Unavailable [phone] Mariah Sharma RN Unavailable Unavailable Faisal Montalvo MD Unavailable [phone] Jair Sexton MD Unavailable [phone] Adriel Moore MD PhD Unavailable [phone] Maureen Hernández LCSW Unavailable Unavaila ble Allergies No known active allergies Medications ferrous sulfate 325 mg (65 mg of elemental iron) tabletIndication s:Supplement Take 1 tablet (65 mg of elemental iron total) by mouth data quality consultant before breakfast Active oxyCODONE (ROXICODONE) 5 mg [...] specification of site 09/27/2024 Neck mass 09/09/2024 Encounters Date Type Department Care Team Description 12/20/2024 8:53 AM CDT Hospital Encounter [facility] Advanced Medicine Radiation Oncology [address] [facility] [place] [address] 12/20/2024 Orders Only RAD ONC TREATMENTS Miscellaneous, Not In File 12/16/2024 11:15 AM CDT Office Visit [facility] Oncology [address] [facility] Floor 5 [place] [address] Faisal Montalvo MD 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 - Lab Collection [address] [facility] 5 [place] [address] Malignant neoplasm without specification of site (HCC) 12/16/2024 9:33 AM CDT - 12/16/2024 11:59 PM CDT Hospital Encounter [facility] Radiation Oncology [address] [facility] [place] [address] Discharge Disposition: Discharge to home or self care 12/16/2024 Orders Only RAD ONC TREATMENTS Miscellaneous, Not In File 12/15/2024 10:46 AM CDT - 12/15/2024 11:59 PM CDT Hospital Encounter [facility] Radiation Oncology [facility] [place] [address] Discharge Disposition: Discharge to home or self care 12/15/2024 Orders Only [facility] Oncology [address] [facility] 5 [place] [address] Antony Rubio MD Malignant neoplasm without specification of site (HCC) (Primary Dx) 12/15/2024 Orders Only RAD ONC TREATMENTS Miscellaneous, Not In File 12/14/2024 9:22 AM CDT - 12/14/2024 11:59 PM CDT Hospital Encounter [facility] Advanced Medicine Radiation Oncology [address] [place] [address] Discharge Disposition: Discharge to home or self care 12/14/2024 Documentation [facility] Nutrition Counseling 1 [place] [address] 12/14/2024 OTV [facility] Radiation Oncology [address] [facility] [place] [address] Adriel Moore MD PhD 12/14/2024 Orders Only RAD ONC TREATMENTS Miscellaneous, Not In File 12/13/2024 1:18 PM CDT - 12/13/2024 11:59 PM CDT Hospital Encounter [facility] Advanced Medicine Radiation Oncology [address] [facility] [place] [address] Discharge Disposition: Discharge to home or self care 12/13/2024 Orders Only RAD ONC TREATMENTS Miscellaneous, Not In File 12/11/2024 1:59 PM CDT - 12/11/2024 5:09 PM CDT Hospital Encounter [facility] [address] [place] [address] 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); Malignant neoplasm without specification of site (HCC) Discharge Disposition: Discharge to home or self care 12/10/2024 11:12 AM CDT - 12/10/2024 11:59 PM CDT Hospital Encounter [facility] Advanced Medicine Radiation Oncology [address] [place] [address] Discharge Disposition: Discharge to home or self care 12/10/2024 9:00 AM CDT Infusion [facility] - Infusion [address] [facility] Floor 5 [place] [address] 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); Malignant neoplasm without specification of site (HCC) 12/10/2024 Orders Only RAD ONC TREATMENTS Miscellaneous, Not In File 12/09/2024 11:30 AM CDT Infusion [facility] - Infusion [address] [facility] Floor 5 [place] [address] 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) 12/09/2024 Orders Only RAD ONC TREATMENTS Miscellaneous, Not In File 12/08/2024 3:42 PM CDT - 12/08/2024 11:59 PM CDT Hospital Encounter [facility] Radiation Oncology [address] [place] [address] Discharge Disposition: Discharge to home or self care 12/08/2024 Orders Only RAD ONC TREATMENTS Miscellaneous, Not In File 12/07/2024 11:14 AM CDT - 12/07/2024 11:59 PM CDT Hospital Encounter [facility] Radiation Oncology [address] [place] [address] [place] [address] Adriel Moore MD PhD Discharge Disposition: Discharge to home or self care 12/07/2024 OTV [facility] Radiation Oncology [address] [facility] [place] [address] Adriel Moore MD PhD 12/07/2024 Orders Only RAD ONC TREATMENTS Miscellaneous, Not In File 12/06/2024 7:40 PM CDT - 12/06/2024 11:59 PM CDT Hospital Encounter [facility] Radiation Oncology [address] [place] [address] Discharge Disposition: Discharge to home or self care 12/03/2024 Telephone [facility] [address] [place] [address] 4th [place] [address] Mariah Sharma, LIZBETH Navigation follow up-tx start check in 11/19/2024 Telephone [facility] Oncology [address] [place] [address] 5 [place] [phone] Henny Harper RN 11/18/2024 11:59 AM CDT - 11/18/2024 11:59 PM CDT Hospital Encounter [facility] Radiation Oncology [address] [place] [address] Adriel Moore MD PhD Discharge Disposition: Discharge to home or self care 11/09/2024 Telephone [facility] Nutrition Counseling 1 [place] [address] 11/03/2024 3:00 PM CDT Therapy [facility] Otolaryngology [address] [place] [address] 5 [place] [phone] Sarah Noland SLP Head and neck cancer (HCC) (Primary Dx); Dysphagia, unspecified type; 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) 11/03/2024 2:20 PM CDT Office Visit [facility] Department of Otolaryngology Head-Neck Division [address] [place] [address] 5 [place] [phone] Jair Sexton MD 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) 11/02/2024 Telephone [facility] Oncology [address] [place] [address] [place] [phone] Faisal Montalvo MD 10/28/2024 10:15 AM CDT Office Visit [facility] Oncology [address] [place] [phone] Faisal Montalvo MD Malignant neoplasm without specification of site (HCC) (Primary Dx); 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); 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); Head and neck cancer (HCC) 10/28/2024 9:15 AM CDT Lab [facility] - Lab Collection [address] [place] [address] 5 [place] [address] Neck mass; Malignant neoplasm without specification of site (HCC); 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); 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) 10/27/2024 Orders Only [facility] Oncology [address] [place] [phone] Joanie Banks BS Neck mass (Primary Dx) 10/26/2024 Telephone [facility] Nutrition Counseling [address] [place] [phone] 10/15/2024 9:30 AM CDT Clinical Support [facility] Department of Otolaryngology Head-Neck Division [address] [place] [phone] 10/15/2024 Telephone [facility] Otolaryngology [address] [place] [phone] Marietta Patterson MS 10/13/2024 Telephone [facility] [address] [place] [phone] Mariah Sharma, LIZBETH Navigation follow up- hospital discharge check in 10/11/2024 1:43 PM CDT Anesthesia Event [facility] Operating Room 1 [place] [address] Jonathan Ochoa MD Dippolito, Jenny Irene, NP 10/11/2024 11:20 AM CDT - 10/11/2024 4:15 PM CDT Surgery [facility] Operating Room 1 [place] [address] Jair Sexton MD SP ROBOTIC GLOSSECTOMY 10/11/2024 9:19 AM CDT - 10/12/2024 2:31 PM CDT Hospital Encounter [facility] 1 [place] [address] Jair Sexton MD 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) Discharge Disposition: Discharge to home or self care 10/08/2024 Telephone [facility] [address] [place] [phone] Mariah Sharma, LIZBETH Navigation follow up- pre-surgical check in 10/05/2024 Telephone [facility] Oncology [address] [place] [phone] Henny Harper, LIZBETH Pre Cert 09/30/2024 3:30 PM CDT Pre-Admission Testing [facility] ([facility]) [address] [place] [phone] Preoperative testing (Primary Dx) 09/30/2024 2:30 PM CDT Lab [facility] - Lab Collection [address] [place] [address] Malignant neoplasm without specification of site (HCC); Head and neck cancer (HCC) 09/30/2024 10:00 AM CDT Lab [facility] - Lab Collection [address] [place] [address] Malignant neoplasm without specification of site (HCC); Head and neck cancer (HCC) 09/30/2024 8:00 AM CDT Office Visit [facility] Oncology [address] [place] [phone] Faisal Montalvo MD Malignant neoplasm without specification of site (HCC) (Primary Dx); Head and neck cancer (HCC) 09/30/2024 Telephone [facility] Oncology [address] [place] [phone] Henny Harper RN 09/30/2024 Telephone [facility] [address] [place] [address] Mariah Sharma, RN Navigation follow up 09/28/2024 12:46 PM CDT - 09/28/2024 11:59 PM CDT Hospital Encounter [facility] PET [address] [facility] Floor 8 [place] [address] Discharge Disposition: Discharge to home or self care 09/28/2024 12:45 PM CDT - 09/28/2024 11:59 PM CDT Hospital Encounter [facility] PET [address] [facility] Floor 8 [place] [address] Head and neck cancer (HCC) Discharge Disposition: Discharge to home or self care 09/28/2024 11:00 AM CDT Consult [facility] Radiation Oncology [address] [place] [address] Adriel Moore MD PhD Head and neck cancer (HCC) 09/22/2024 Telephone [facility] [address] [phone] Chela Solis 09/22/2024 Documentation [facility] [address] [phone] Maureen Hernández LCSW 09/21/2024 Telephone [facility] [address] [phone] Mariah Sharma, payment collector Initial Call 09/21/2024 Telephone [facility] Advanced Medicine Radiation Oncology [facility] [place] [address] Adriel Moore MD PhD 09/20/2024 Documentation [facility] [address] [phone] Maureen Hernández LCSW 09/20/2024 Orders Only [facility] Department of Otolaryngology Head-Neck Division [address] [facility] Floor 5 [place] [phone] Jair Sexton MD Head and neck cancer (HCC) (Primary Dx) from Last 3 Months Surgical History Surgery Date Site/Laterality Comments HERNIA REPAIR 06/16/2019 - 06/15/2020 KIDNEY STONE SURGERY TONSILLECTOMY 06/16/1960 - 06/15/1961 VASECTOMY 06/16/1982 - 06/15/1983 CATARACT EXTRACTION 06/16/2024 - 06/15/2025 Family History Medical History Relation Name Comments COPD Brother Pulmonary fibrosis Brother Anesthesia problems Father delirium with anesthesia Heart failure Father Stroke Mother Breast cancer Sister Elinor Cancer Sister Elinor Relation Name Status Comments Brother Father Mother Sister Elinor Alive Social History Tobacco Use Types Packs/Day Years Used Date Smoking Tobacco: Former Cigarettes 0.8 3 0 06/16/1973 - 06/16/1976 Passive Smoke Exposure: Past Smokeless Tobacco: Never Tobacco Cessation:Counseling Given: Not Answered [facility] Utilities Answer Date Recorded In the [...] answer 09/22/2024 How often do you attend [facility] or hoahaoism services? Patient unable to answer 09/22/2024 Do you belong to any clubs o r organizations such as moravian groups, unions, fraternal or athletic groups, or [...] any time in the past 12 [facility], were you homeless or living in a nursing home (including now)? No 09/22/2024 Personal Safety Answer Date Recorded Have you ever been in or are you currently in a harmful physical or emotional relationship or is someone making you feel afraid or unsafe? 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 Gender Identity Male 09/08/2024 11:39 AM CDT Sexual Orientation Straight 09/08/2024 11 :39 AM CDT Obstetrics History Last Filed Vital Signs Vital Sign Reading [...] 12/09/2024 11:45 AM CDT Plan of Treatment Health Maintenance Due Date Last Done Comments Colon Cancer Screening-Colonoscopy 1955 Hepatitis C Screening 1955 DTaP/Tdap/Td Vaccine (1 - Tdap) 1964 Hepatitis B Screening 11/01/1971 Pneumococcal vaccine 65+ (1 of 2 - PCV) 1972 Zoster Vaccine (1 of 2) 1972 Abdominal Aortic Aneurysm (AAA) Screen 2018 Well Visit 65+ 2018 Influenza Vaccine (#1) 2025 Depression Screening 09/22/2025 09/22/2024 Fall Risk Assessment 10/12/2025 10/12/2024, 09/29/19 25 Procedures Procedure Name Priority Date/Time Associated Diagnosis [...] and neck with unknown primary site (HCC) TX AN PROCEDURE PLACEHOLDER Routine 10/11/2024 2:16 PM CDT TX AN ELECTIVE ENDOTRACHEAL AIRWAY Routine 10/11/2024 2:16 [...] BLOOD ORDERABLES Final Result Performing Organization Address City/Va Hospital/ZIP Co de Phone Number [facility] Department [place] [address] * Magnesium (12/16/2024 10:01 AM CDT) Pathologist [facility] Magnesium 2.4 1.4 - 2.5 mg/dL Blood 12/16/2024 10:0 1 AM CDT 12/16/2024 10:23 AM CDT Antony Rubio MD LAB BLOOD ORDERABLES Final Result Performing Organization Address [facility] Hospital/[facility] de Phone Number [facility] Department [place] [address] * (ABNORMAL) Basic metabolic panel (12/16/2024 10:01 AM CDT) [facility] Sodium 138 135 - 145 mmol/L Potassium, pl 4.7 3.3 - 4.9 mmol/L [facility] Chloride 103 97 - 110 mmol/L [facility] CO2 28 22 - 32 mmol/L [facility] Anion gap 7 2 - 15 mmol/L [facility] BUN 28(H) 6 - 25 mg/dL [facility] Creatinine 1.47(H) 0.80 - 1.30 mg/dL [facility] Glucose 100 70 - 199 mg/dL [facility] Comment: Interpretive Data Fasting glucose >/= [...] 2022. Calcium 9.5 8.5 - 10.3 mg/dL [facility] Blood 12/16/2024 10:0 1 AM CDT 12/16/2024 10:23 AM CDT us Antony Rubio MD LAB BLOOD ORDERABLES Final Result Performing Organization Address [facility] Co de Phone Number [facility] Department [place] [address] * RAD ONC ARIA SESSION SUMMARY (12/16/2024 9:54 AM CDT) Course Name C1 HEAD [id number]_LT [...] ORD ERABLES Final Result Performing Organization Address [facility] Co de Phone Number ARIA * RAD ONC ARIA SESSION SUMMARY (12/15/2024 [...] RADIATION ONCOLOGY ORD ERABLES Final Result MOLLY He RAD ONC ARIA SESSION SUMMARY (12/14/2024 9:37 [...] ORD ERABLES Final Result Performing Organization Address [facility] Co de Phone Number MOLLY He RAD ONC ARIA SESSION SUMMARY (12/13/2024 1:28 [...] ONCOLOGY ORD ERABLES Final Result ARIA * eGFR (12/09/2024 9:23 AM CDT) eGFR [...] data was last reviewed 2021. Blood 12/09/2024 9:2 3 AM CDT 12/09/2024 9:26 AM CDT us Estela Wong HEAT TREAT WORKER LAB BLOOD ORDERABLES Final Result [facility] Department [place] [address] * Differential, auto (12/09/2024 9:23 AM CDT) Neutrophil abs 3.86 1.50 - 6.50 K/cumm Comment:Testing performed by : [facility], [address] [place] [address] Lymphocyte abs 1.45 0.80 - 3.30 K/cumm [facility] Comment:Testing performed by : [facility], [address] [place], [place] [id number] Monocyte abs 0.55 0.20 - 0.80 K/cumm [facility] Comment:Testing performed by : [facility], [address] [place], [place] [id number] Eosinophil abs 0.29 0.00 - 0.50 K/cumm [facility] Comment:Testing performed by : [facility], [address] [place], [place] [id number] Basophil abs 0.03 0.00 - 0.10 K/cumm [facility] Comment:Testing performed by : [facility], [address] [place] [address] Neutrophil pct 62.5 % [facility] Comment: Interpretive Data Percent cell count reference ranges are not reported, since discordance with absolute values may lead to misinterpretation of CBC data. Current Interpretive Data was last revised on 2017. Testing performed by: [facility], [address] [place] [phone] Lymphocyte pct 23.4 % [facility] Comment: Interpretive Data Percent cell count reference ranges are not reported, since discordance with absolute values may lead to misinterpretation of CBC data. Current Interpretive Data was last revised on 2017. Testing performed by: [facility], [address] [place] [phone] Monocyte pct 8.9 % [facility] Comment: Interpretive Data Percent cell count reference ranges are not reported, since discordance with absolute values may lead to misinterpretation of CBC data. Current Interpretive Data was last revised on 2017. Testing performed by: [facility], [address] [place] [phone] Eosinophil pct 4.7 % [facility] Comment: Interpretive Data Percent cell count reference ranges are not reported, since discordance with absolute values may lead to misinterpretation of CBC data. Current Interpretive Data was last revised on 2017. Testing performed by: [facility], [address] [place] [phone] Basophil pct 0.6 % [facility] Comment: Interpretive Data Percent cell count reference ranges are not reported, since discordance with absolute values may lead to misinterpretation of CBC data. Current Interpretive Data was last revised on 2017. Testing performed by: [facility], [address] [place] [phone] Blood 12/09/2024 9:23 AM CDT 12/09/2024 9:24 AM CDT Estela Wong HEAT TREAT WORKER LAB BLOOD ORDERABLES Final Result [facility] Department [place] [address] * CBC with auto differential (12/09/2024 9:23 AM CDT) WBC 6.18 3.80 - 9.90 K/cumm Comment:Testing performed by : [facility], [address] [place] [phone] Hgb 14.2 13.0 - 17.5 g/dL [facility] Comment:Testing performed by : [facility], [address] [place] [phone] Hct 43.4 38.9 - 50.3 % [facility] Comment:Testing performed by : [facility], [address] [place] [phone] Plt 205 150 - 400 K/cumm [facility] Comment:Testing performed by : [facility], [address] [place] [phone] MPV 9.0 6.8 - 10.4 fL [facility] Comment:Testing performed by : [facility], [address] [place] [address] RBC 4.88 4.30 - 5.80 M/cumm [facility] Comment:Testing performed by : [facility], [address] [place] [address] MCV 88.8 81.3 - 96.4 fL [facility] Comment:Testing performed by : [facility], [address] [place] [address] MCH 29.1 27.1 - 33.3 pg [facility] Comment:Testing performed by : [facility], [address] [place] [address] MCHC 32.7 32.3 - 35.7 g/dL [facility] Comment:Testing performed by : [facility], [address] [place] [address] RDW CV 14.2 11.1 - 14.9 % [facility] Comment:Testing performed by : [facility], [address] [place] [address] NRBC abs 0.00 0.00 - 0.01 K/cumm [facility] Comment:Testing performed by : [facility], [address] [place] [address] Blood 12/09/2024 9:23 AM CDT 12/09/2024 9:24 AM CDT Estela Wnog HEAT TREAT WORKER LAB BLOOD ORDERABLES Final Result [facility] Department [place] [address] * Magnesium (12/09/2024 9:23 AM CDT) Magnesium 2.3 1.4 - 2.5 mg/dL Blood 12/09/2024 9:23 AM CDT 12/09/2024 9:26 AM CDT Estela Wong NP LAB BLOOD ORDERABLES Final Result [facility] Department [place] [address] * Comprehensive metabolic panel (12/09/2024 9:23 AM CDT) Sodium 138 135 - 145 mmol/L Potassium, pl 4.2 3.3 - 4.9 mmol/L [facility] Chloride 104 97 - 110 mmol/L [facility] CO2 26 22 - 32 mmol/L [facility] Anion gap 8 2 - 15 mmol/L [facility] BUN 17 6 - 25 mg/dL [facility] Creatinine 1.08 0.80 - 1.30 mg/dL [facility] Glucose 123 70 - 199 mg/dL [facility] Comment: Interpretive Data Fasting glucose >/= [...] 2022. Calcium 9.2 8.5 - 10.3 mg/dL [facility] Bilirubin, total 0.4 0.1 - 1.2 mg/dL [facility] Protein, pl 7.5 6.5 - 8.5 g/dL [facility] Albumin 4.3 3.5 - 5.0 g/dL [facility] Alk phos 79 40 - 130 Units/L [facility] ALT 13 7 - 55 Units/L [facility] AST 22 10 - 50 Units/L [facility] Blood 12/09/2024 9:23 AM CDT 12/09/2024 9:26 AM CDT Estela Angelina Slane HEAT TREAT WORKER LAB BLOOD ORDERABLES Final Result PAO BJ [facility] Department [place] [address] * RAD ONC ARIA SESSION SUMMARY (12/09/2024 [...] ORD ERABLES Final Result Performing Organization Address City/[facility]/ZIP Co de Phone Number ARIA * RAD ONC ARIA SESSION SUMMARY [...] ARIA * RAD ONC ARIA SESSION SUMMARY (12/07/2024 [...] ONCOLOGY ORD ERABLES Final Result ARIA * eGFR (10/28/2024 9:28 AM CDT) eGFR [...] Final Result PAO MCCLENDON [facility] Department [place] [address] * Differential, auto (10/28/2024 9:28 AM CDT) Neutrophil abs 3.86 1.50 - 6.50 K/cumm Comment:Testing performed by : [facility], [address] [place], [place] [id number] Lymphocyte abs 1.26 0.80 - 3.30 K/cumm CERNER [facility]J Comment:Testing performed by : [facility], [address] [place], [place] [id number] Monocyte abs 0.61 0.20 - 0.80 K/cumm [facility] Comment:Testing performed by : [facility], [address] [place] [address] Eosinophil abs 0.22 0.00 - 0.50 K/cumm [facility] Comment:Testing performed by : [facility], [address] [place], [place] [phone] Basophil abs 0.05 0.00 - 0.10 K/cumm CERNER [facility]J Comment:Testing performed by : [facility], [address] [place], [place] [id number] Neutrophil pct 64.4 % [facility] Comment: Interpretive Data Percent cell count reference ranges are not reported, since discordance with absolute values may lead to misinterpretation of CBC data. Current Interpretive Data was last revised on 2017. Testing performed by: [facility], [address] [place] [address] Lymphocyte pct 21.0 % [facility] Comment: Interpretive Data Percent cell count reference ranges are not reported, since discordance with absolute values may lead to misinterpretation of CBC data. Current Interpretive Data was last revised on 2017. Testing performed by: [facility], [address] [place] [address] Monocyte pct 10.2 % [facility] Comment: Interpretive Data Percent cell count reference ranges are not reported, since discordance with absolute values may lead to misinterpretation of CBC data. Current Interpretive Data was last revised on 2017. Testing performed by: [facility], [address] [place] [address] Eosinophil pct 3.6 % [facility] Comment: Interpretive Data Percent cell count reference ranges are not reported, since discordance with absolute values may lead to misinterpretation of CBC data. Current Interpretive Data was last revised on 2017. Testing performed by: [facility], [address] [place] [phone] Basophil pct 0.8 % [facility]O [facility] Comment: Interpretive Data Percent cell count reference ranges are not reported, since discordance with absolute values may lead to misinterpretation of CBC data. Current Interpretive Data was last revised on 2017. Testing performed by: [facility], [address] [place] [phone] Blood 10/28/2024 9:28 AM CDT 10/28/2024 9:31 AM CDT Faisal Montalvo MD LAB BLOOD ORDERABLES Final Result Performing Organization Address City/State/[facility] Co de Phone Number PAO MCCLENDON [facility] Department [place] [address] * (ABNORMAL) CBC with auto differential (10/28/2024 9:28 AM CDT) WBC 5.99 3.80 - 9.90 K/cumm Comment:Testing performed by : [facility], [address] [place] [phone] Hgb 13.0 13.0 - 17.5 g/dL PAO MCCLENDON Comment:Testing performed by : [facility], [address] [place] [phone] Hct 38.8(L) 38.9 - 50.3 % PAO MCCLENDON Comment:Testing performed by : [facility], [address] [place] [address] Plt 286 150 - 400 K/cumm PAO MCCLENDON Comment:Testing performed by : [facility], [address] [place] [phone] MPV 8.6 6.8 - 10.4 fL PAO MCCLENDON Comment:Testing performed by : [facility], [address] [place] [address] RBC 4.45 4.30 - 5.80 M/cumm PAO [facility] Comment:Testing performed by : [facility], [address] [place] [address] MCV 87.3 81.3 - 96.4 fL [facility] Comment:Testing performed by : [facility], [address] [place] [address] MCH 29.3 27.1 - 33.3 pg [facility] Comment:Testing performed by : [facility], [address] [place] [address] MCHC 33.6 32.3 - 35.7 g/dL PAO [facility] Comment:Testing performed by : [facility], [address] [place] [address] RDW CV 14.2 11.1 - 14.9 % [facility] Comment:Testing performed by : [facility], [address] [place] [address] NRBC abs 0.00 0.00 - 0.01 K/cumm [facility] Comment:Testing performed by : [facility], [address] [place] [address] Blood 10/28/2024 9:28 AM CDT 10/28/2024 9:31 AM CDT Faisal Montalvo MD LAB BLOOD ORDERABLES Final Result [facility] Department [place] [address] * aPTT (10/28/2024 9:28 AM CDT) aPTT [...] BLOOD ORDERABLES Final Result Performing Organization Address [facility] de Phone Number [facility] [place] [employer] [place] [address] * Protime-INR (10/28/2024 9:28 AM CDT) PT 10.1 9.7 - 13.0 sec INR 0.94 0.90 - 1.20 [facility] Comment: Interpretive data Oral anticoagulant therapeutic ranges: Venous thromboembolism prophylaxis or treatment: 2.0-3.0 CARDIOLOGY Standard range: 2.0-3.0 High-intensity range: 2.5-3.5 Refer to indication-specific guidelines for appropriate target ranges for prosthetic heart valve replacement. Current interpretive data was last revised on 2019. Blood 10/28/2024 9:28 AM CDT 10/28/2024 9:46 AM CDT Faisal Montalvo MD LAB BLOOD ORDERABLES Final Result Performing Organization Address [facility] [place] [address] * Magnesium (10/28/2024 9:28 AM CDT) Magnesium 2.3 1.4 - 2.5 mg/dL Blood 10/28/2024 9:28 AM CDT 10/28/2024 9:35 AM CDT Faisal Montalvo MD LAB BLOOD ORDERABLES Final Result Performing Organization Address [facility] de Phone Number [facility] [place] [address] * Comprehensive metabolic panel (10/28/2024 9:28 AM CDT) Sodium 139 135 - 145 mmol/L Potassium, pl 4.6 3.3 - 4.9 mmol/L [facility] Chloride 106 97 - 110 mmol/L [facility] CO2 26 22 - 32 mmol/L [facility] Anion gap 7 2 - 15 mmol/L [facility] BUN 19 6 - 25 mg/dL [facility] Creatinine 1.07 0.80 - 1.30 mg/dL [facility] Glucose 91 70 - 199 mg/dL [facility] Comment: Interpretive Data Fasting glucose >/= [...] 2022. Calcium 8.8 8.5 - 10.3 mg/dL [facility] Bilirubin, total 0.3 0.1 - 1.2 mg/dL [facility] Protein, pl 7.2 6.5 - 8.5 g/dL [facility] Albumin 3.9 3.5 - 5.0 g/dL [facility] Alk phos 74 40 - 130 Units/L [facility] ALT 12 7 - 55 Units/L [facility] AST 20 10 - 50 Units/L [facility] Blood 10/28/2024 9:28 AM CDT 10/28/2024 9:35 AM CDT us Faisal Montalvo MD LAB BLOOD ORDERABLES Final Result [facility] Department [place] [address] * Surgical pathology (10/11/2024 2:31 PM CDT) Tissue (Neck) 10/11/2024 2:3 1 PM CDT Tissue specimen (specimen) (Neck) 10/11/2024 2:46 PM CDT Tissue specimen (specimen) (Neck) 10/11/2024 3:53 PM CDT Tissue specimen (specimen) (Neck) 10/11/2024 3:54 PM CDT Tissue specimen (specimen) (Neck) 10/11/2024 3:54 PM CDT Narrative PATHOLOGY [facility] - 10/14/2024 6:33 PM CDT EPIC results best viewed via link to PDF [facility] [place] [address] Note to Patients: This report may contain [...] SURGICAL PATHOLOGY REPORT FINAL Patient Name: NAZIA MCCORD Gender: M : 1955 (Age: 68) Address: [address] [place] [address] Hospital #: [id number] Taken:10/11/2024 Received:10/11/2024 Reported: 10/14/2024 Patient Type: [facility] Inpatient Service: Ear Nose Throat Location: [place] [address] Physician(s): Mariya Julian M.D. Diagnosis: A. Oropharynx, medial tongue base, excisional biopsy (AFR1): - No evidence of malignancy B. 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 Oropharynx, lateral tongue base, excisional biopsy (CFR1): - No evidence of malignancy D. Lymph nodes, left level three, dissection: - No evidence of malignancy in 12 nodes (0/12) E. Lymph nodes, left level four, dissection: - No evidence of malignancy in four nodes (0/4) [facility]/10/14/2024 18:33 By this signature, I attest [...] entirely for frozen. By Nazia Medrano M.D., David Sadegh, M.D. C: Lateral tongue base Received fresh, labeled with the patient's identifiers and Lateral tongue base is a fragment of vila-pink tissue measuring 2.1 x 1.8 x 0.4 cm. The tissue includes a mucosal surface and a cauterized surface. The cauterized surface is inked black. Serially sectioned and submitted entirely for frozen. By Nazia Medrano M.D., David Sadegh, M.D. I personally examined the relevant preparation(s) [...] nodes. Jar 1. 10/12/2024 15:10 PA(s): Carola Meredith, MS, PA ([facility]) CANCER CASE SUMMARY FOR MALIGNANT TUMORS [...] Surgical Pathology and Flow Cytometry Departments at [facility] as part of an ongoing quality lab technician program and in compliance with federally mandated [...] Surgical Pathology and Flow Cytometry Departments of [facility]. It has not been cleared or approved by the U. S. Food and Drug Administration. IMAGES AND SCANNED DOCUMENTS, IF INCLUDED, ONLY VIEWABLE IN PDF VERSION OF REPORT Jair Sexton MD LAB PATHOLOGY ORDERABLES F inal Result PATHOLOGY [facility] [address] [place], [place] [phone] * TX AN ELECTIVE ENDOTRACHEAL AIRWAY, TX AN PROCEDURE PLACEHOLDER (10/11/2024 2:16 PM CDT) [...] trial extubation: yes Additional comments: No complications us Jonathan Ochoa MD ANESTHESIA ORDERA BLES Final Result * Check Sample (10/11/2024 9:41 AM CDT) ABO Rh A Positive [facility] HCLL OTHER 10/11/2024 9:41 AM CDT 10/11/2024 10:06 AM CDT Jair Sexton MD LAB BLOOD ORDERABLES Final Result [facility] One [facility] Department [place] [address] [facility] * TYPE AND SCREEN 14 DAY (09/30/2024 4:52 PM CDT) ABO Rh A Positive [place], indirect Negative [facility] Blood 09/30/2024 4:52 PM CDT 09/30/2024 7:06 PM CDT Narrative [facility] - 09/30/2024 8:00 PM CDT Is this test being ordered in advance for a procedure?->Yes Expected date of procedure:->10/11/24 Has the patient been transfused in the past 3 months?->No us Juanita Wilson HEAT TREAT WORKER LAB BLOOD BANK TEST O RDERABLES Final Result Performing Organization Address City/[facility] Co de Phone Number PAO MCCLENDON [facility] Department [place] [address] * eGFR (09/30/2024 10:02 AM CDT) eGFR 77 >=60 mL/min/1. 73 m2 Comment: [...] BLOOD ORDERABLES Final Result Performing Organization Address City/[facility] Co de Phone Number PAO MCCLENDON [facility] Department [place] [address] * Differential, auto (09/30/2024 10:02 AM CDT) Pathologist [facility] Neutrophil abs 3.78 1.50 - 6.50 K/cumm Comment:Testing performed by : [facility], [address] [place] [phone] Lymphocyte abs 1.24 0.80 - 3.30 K/cumm PAO [facility] Comment:Testing performed by : [facility], [address] [place] [phone] Monocyte abs 0.57 0.20 - 0.80 K/cumm [facility] Comment:Testing performed by : [facility], [address] [place] [phone] Eosinophil abs 0.16 0.00 - 0.50 K/cumm [facility] Comment:Testing performed by : [facility], [address] [place] [phone] Basophil abs 0.04 0.00 - 0.10 K/cumm [facility] Comment:Testing performed by : [facility], [address] [place] [phone] Neutrophil pct 65.3 % [facility] Comment: Interpretive Data Percent cell count reference ranges are not reported, since discordance with absolute values may lead to misinterpretation of CBC data. Current Interpretive Data was last revised on 2017. Testing performed by: [facility], [address] [place] [phone] Lymphocyte pct 21.4 % [facility] Comment: Interpretive Data Percent cell count reference ranges are not reported, since discordance with absolute values may lead to misinterpretation of CBC data. Current Interpretive Data was last revised on 2017. Testing performed by: [facility], [address] [place] [phone] Monocyte pct 9.8 % [facility] Comment: Interpretive Data Percent cell count reference ranges are not reported, since discordance with absolute values may lead to misinterpretation of CBC data. Current Interpretive Data was last revised on 2017. Testing performed by: [facility], [address] [place] [phone] Eosinophil pct 2.8 % [facility] Comment: Interpretive Data Percent cell count reference ranges are not reported, since discordance with absolute values may lead to misinterpretation of CBC data. Current Interpretive Data was last revised on 2017. Testing performed by: [facility], [address] [place] [phone] Basophil pct 0.7 % [facility] Comment: Interpretive Data Percent cell count reference ranges are not reported, since discordance with absolute values may lead to misinterpretation of CBC data. Current Interpretive Data was last revised on 2017. Testing performed by: [facility], [address] [place] [address] Blood 09/30/2024 10:0 2 AM CDT 09/30/2024 10:11 AM CDT Faisal Montalvo MD LAB BLOOD ORDERABLES Final Result [facility] [place] [address] * (ABNORMAL) CBC with auto differential (09/30/2024 10:02 AM CDT) WBC 5.79 3.80 - 9.90 K/cumm Comment:Testing performed by : [facility], [address] [place] [address] Hgb 14.0 13.0 - 17.5 g/dL [facility]O [facility] Comment:Testing performed by : [facility], [address] [place] [address] Hct 41.9 38.9 - 50.3 % [facility] Comment:Testing performed by : [facility], [address] [place] [address] Plt 270 150 - 400 K/cumm [facility] Comment:Testing performed by : [facility], [address] [place] [address] MPV 9.0 6.8 - 10.4 fL [facility] Comment:Testing performed by : [facility], [address] [place] [address] RBC 4.76 4.30 - 5.80 M/cumm [facility] Comment:Testing performed by : [facility], [address] [place] [address] MCV 88.1 81.3 - 96.4 fL [facility] Comment:Testing performed by : [facility], [address] [place], [place] [phone] MCH 29.4 27.1 - 33.3 pg PAO [facility] Comment:Testing performed by : [facility], [address] [place], [place] [phone] MCHC 33.4 32.3 - 35.7 g/dL PAO [facility] Comment:Testing performed by : [facility], [address] [place], [place] [phone] RDW CV 15.0(H) 11.1 - 14.9 % PAO [facility] Comment:Testing performed by : [facility], [address] [place], [place] [phone] NRBC abs 0.00 0.00 - 0.01 K/cumm PAO [facility] Comment:Testing performed by : [facility], [address] [place] [phone] Blood 09/30/2024 10:0 2 AM CDT 09/30/2024 10:11 AM CDT us Faisal Montalvo MD LAB BLOOD ORDERABLES Final Result Performing Organization Address City/[facility] Co de Phone Number PAO [facility] [employer] [place] [id number] * aPTT (09/30/2024 10:02 AM CDT) aPTT [...] BLOOD ORDERABLES Final Result Performing Organization Address City/[facility] Co de Phone Number [facility] [place] [place] [address] * Protime-INR (09/30/2024 10:02 AM CDT) [facility] PT 10.7 9.7 - 13.0 sec INR 0.99 0.90 - 1.20 [facility] Comment: Interpretive data Oral anticoagulant therapeutic ranges: Venous thromboembolism prophylaxis or treatment: 2.0-3.0 CARDIOLOGY Standard range: 2.0-3.0 High-intensity range: 2.5-3.5 Refer to indication-specific guidelines for appropriate target ranges for prosthetic heart valve replacement. Current interpretive data was last revised on 2019. Blood 09/30/2024 10:0 2 AM CDT 09/30/2024 10:40 AM CDT Faisal Montalvo MD LAB BLOOD ORDERABLES Final Result Performing Organization Address [facility] Co de Phone Number [facility] Department [place] [address] * (ABNORMAL) Magnesium (09/30/2024 10:02 AM CDT) [facility] Magnesium 2.6(H) 1.4 - 2.5 mg/dL Blood 09/30/2024 10:0 2 AM CDT 09/30/2024 10:12 AM CDT Faisal Montalvo MD LAB BLOOD ORDERABLES Final Result Performing Organization Address City/[facility] Co de Phone Number [facility] [place] [address] * Comprehensive metabolic panel (09/30/2024 10:02 AM CDT) [facility] Sodium 139 135 - 145 mmol/L Potassium, pl 4.6 3.3 - 4.9 mmol/L [facility] Chloride 105 97 - 110 mmol/L [facility] CO2 26 22 - 32 mmol/L [facility] Anion gap 8 2 - 15 mmol/L [facility] BUN 19 6 - 25 mg/dL [facility] Creatinine 1.04 0.80 - 1.30 mg/dL [facility] Glucose 101 70 - 199 mg/dL [facility] Comment: Interpretive Data Fasting glucose >/= [...] 2022. Calcium 9.1 8.5 - 10.3 mg/dL [facility] Bilirubin, total 0.3 0.1 - 1.2 mg/dL [facility] Protein, pl 7.7 6.5 - 8.5 g/dL [facility] Albumin 4.3 3.5 - 5.0 g/dL [facility] Alk phos 70 40 - 130 Units/L [facility] ALT 18 7 - 55 Units/L [facility] AST 25 10 - 50 Units/L [facility] Blood 09/30/2024 10:0 2 AM CDT 09/30/2024 10:12 AM CDT Faisal Montalvo MD LAB BLOOD ORDERABLES Final Result Performing Organization Address City/State/[facility] Co pa Phone Number [facility] One [facility] Department [place] [address] * PET/CT FDG Skull to Thigh (09/28/2024 [...] FDG-PET/CT IMAGING DATE OF STUDY: 09/28/2024 SCANNER: [facility] RADIOPHARMACEUTICAL: 6.83 mCi F-18 Fluorodeoxyglucose (FDG) [...] obtained. The study was interpreted on the [employer] workstation. The mean liver SUV (reported for software quality test engineer purposes) is 2.0. The total scanned [...] FDG-PET/CT IMAGING DATE OF STUDY: 09/28/2024 SCANNER: [facility] RADIOPHARMACEUTICAL: 6.83 mCi F-18 Fluorodeoxyglucose (FDG) [...] obtained. The study was interpreted on the [employer] workstation. The mean liver SUV (reported for software quality test engineer purposes) is 2.0. The total scanned [...] by: Neris Connolly M.D. Jair Sexton MD IMG PET PROCEDURES Final R esult from Last 3 Months Insurance MEDICARE [facility] MEDICARE ADVANTAGE MEDICARE RESEARCH [facility] MEDICARE ADVANTAGE [facility] MEDICARE ADVANTAGE [facility] MEDICARE ADVANTAGE Advance Directives For more information, please contact: [phone] * Full Code (Latest Code Status on File) Date Activated Date Inactivated Comments 10/11/2024 7:59 PM 10/12/2024 6:37 PM Care Teams [employer] Phot[employer] Detailer Relationship Specialty Start Date End Date Destin Escalona MD [address] [address] PCP - General Family Medicine 05/02/20 Malachi Steen MD [address] [place] [address] [address] Consulting Physician Otolaryngology 09/03/24 Mariah Sharma, RN Nurse Navigator 09/21/24 Faisal Montalvo MD [address] [facility] [address] [place] [address] Medical Oncologist/Investment Analyst Medical Oncology 09/22/24 Jair Sexton MD [address] [facility] DEPT OTOLARYNGOLOGY, [address] [address] Consulting Physician Otolaryngology 09/22/24 Adriel Moore MD PhD [address] [facility] [address] [place] [address] Radiation Oncologist Radiation Oncology 09/22/24 Maureen Hernández LCSW Bottom Cementer 09/22/24
--- OUTSIDE RECORDS SUMMARY | 2024-12-20 14:57 | XMS_ITS | Encounter Summary ---
Author Organization [facility] Healthcare Address [address] [place] [address] Care Team Providers Care Supervisor Cartography Name Role Phone Destin Escalona MD Primary Care Provider + [phone] Malachi Steen MD Unavailable [phone] Mariah Sharma RN Unavailable Unavailable Faisal Montalvo MD Unavailable [phone] Jair Sexton MD Unavailable [phone] Adriel Moore MD PhD Unavailable [phone] Maureen Hernández LCSW Unavailable Unavaila ble Encounter Details Date Type Department Care Team (Late st Contact Info) Description 12/20/2024 Orders Only RAD ONC TREATMENTS Miscellaneous, Not In File Social History Tobacco Use Types Packs/Day Years Used Date Smoking Tobacco: Former Cigarettes 0.8 3 0 06/16/1973 - 06/16/1976 Passive Smoke Exposure: Past Smokeless Tobacco: Never [facility] Utilities Answer Date Recorded In the past 12 months has [employer], gas, oil, or water [employer] threatened to shut off services in your [...] answer 09/22/2024 How often do you attend [facility] or [facility] services? Patient unable to answer 09/22/2024 Do you belong to any clubs o r organizations such as religion groups, unions, fraternal or athletic groups, or [...] any time in the past 12 m [facility], were you homeless or living in a [facility] (including now)? No 09/22/2024 Personal Safety Answer Date Recorded Have you ever been in or are you currently in a harmful physical or emotional relationship or is someone making you feel afraid or unsafe? Denies 10/11/2024 Sex and Gender Information Value Date Recorded Sex Assigned at Not on file Legal Sex Male 9:30 AM THREAD TWISTER Gender Identity Male 09/08/2024 11:39 AM CDT Sexual Orientation Straight 09/08/2024 11 :39 AM CDT documented as of this encounter Plan of Treatment Not on file documented as of this encounter Procedures Procedure Name Priority Date/Time Associated Diagnosis Comments RAD ONC ARIA SESSION SUMMARY 12/20/2024 9:02 AM CDT documented in this encounter Results * RAD ONC ARIA SESSION SUMMARY [...] RADIATION ONCOLOGY ORD ERABLES Final Result ARIA documented in this encounter Visit Diagnoses Not on filedocumented in this encounter Care Teams Supervisor Cartography Relationship Specialty Start Date End Date Destin Escalona MD [address] [address] PCP - General Family Medicine 05/02/20 Malachi Steen MD [address] [place] [address] DR BROOKS [address] [place] [address] Consulting Physician Otolaryngology 09/03/24 Mariah Sharma, RN Nurse Navigator 09/21/24 Faisal Montalvo MD [address] [facility] [address] [place] [address] Medical Oncologist/Assembler Carbon Brushes Medical Oncology 09/22/24 Jair Sexton MD [address] [facility] DEPT OTOLARYNGOLOGY, TOD[place] [address] [place] [address] Consulting Physician Otolaryngology 09/22/24 Adriel Moore MD PhD [address] [facility] [address] [place] [address] Radiation Oncologist Radiation Oncology 09/22/24 Maureen Hernández LCSW Bank Operations Officer 09/22/24 documented as of this encounter
[2024-12-20 15:25] VITALS: BP 132/90; PULSE 95; RESP 15; TEMP 36.4; O2SAT 100
--- NOTE | 2024-12-20 15:57 | ED.ABDPAIN ---
HPI - Abdominal Pain General Chief Complaint: Abdominal Pain <Henny French PA-C - Last Filed: 12/21/24 11:16> Stated Complaint: I haven't had a bowel movement in 11 days <Henny French PA-C - Last Filed: 12/21/24 11:16> Time Seen by Provider: 12/20/24 15:57 <Henny French PA-C - Last Filed: 12/21/24 11:16> Focused HPI: This is a 69 year old male that presents to the ER for abdominal pain. Reports he is currently undergoing radiation for throat cancer. Reports he has not had a BM in 11 days. He has taken Senna for 3 days. He has done a suppository. He has also taken Miralax. All without relief. Denies fevers, or vomiting. GENERAL: Well-appearing, well-nourished, and in no acute distress. HEAD: Normocephalic, atraumatic. CHEST: Clear to auscultation. ?No respiratory distress. HEART: Regular rate and rhythm.? NEURO: ?Alert and oriented x3. Patient screened in triage and initial orders placed.? ?Additional care and disposition to be based upon?diagnostic testing and treatment. <Henny French PA-C - Last Filed: 12/21/24 11:16> History of Present Illness HPI narrative: as per mse. <Antonia Duran III, DO - Last Filed: 12/20/24 21:50> Related Data Home Medications: Home Medications ?Medication ?Instructions ?Recorded ?Confirmed ?Last Taken ?Type ferrous sulfate 325 mg (65 mg 325 mg PO DAILY 07/28/24 11/01/24 Unknown History iron) tablet,delayed release famotidine-Ca carb-mag hydrox 10 1 tablet PO DAILY PRN indigestion 11/01/24 11/01/24 Unknown History mg-800 mg-165 mg chewable tablet (Pepcid Complete) polyethylene glycol 3350 17 17 g PO DAILY PRN constipation 12/20/24 Unknown History gram/dose oral powder (Miralax) <Henny French PA-C - Last Filed: 12/21/24 11:16> Allergies/Adverse Reactions: Allergies Allergy/AdvReac Type Severity Reaction Status Date / Time No Known Allergies Allergy Mild Verified 12/20/24 15:24 <Henny French PA-C - Last Filed: 12/21/24 11:16> Review of Systems Review of Systems: All systems reviewed & are unremarkable except as noted in HPI and below <Antonia Duran III, DO - Last Filed: 12/20/24 21:50> [facility] Past Medical History Medical History: Medical History (Updated 12/21/24 @ 11:16 by Henny French PA-C) Constipation Mass of lateral neck Left cervical lymphadenopathy (~07/25/24) Mild dietary indigestion 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 treated with surgical resection in September, with 5.5 cm lymph node removed with all other lymph nodes negative. Excisional biopsies all negative. PET scan negative. Will be treating with radiation. Cataract BMI 27.0-27.9,adult Elevated PSA, less than 10 ng/ml PSA elevated at 4.44 on 10/01/2023, increased from 1.25 on 09/18/2022. At low risk for fall Colon cancer screening normal colonoscopy at age 48 and age 59 with recheck in 10 years. Low iron patient donates blood every 56 days and takes iron supplements before donating. Iron 37 with 11% saturation and ferritin 32 on 09/18/2022. Iron low at 27 with 7% saturation and ferritin 8 with hemoglobin 12.1 on 10/01/2023. Iron 166 with 47% saturation ferritin 34 10/28/2024. Overweight (BMI 25.0-29.9) Encounter for prostate cancer screening PSA 1.25 on 09/18/2022. PSA 2.7 with free PSA 11% on 10/26/2024. Pharyngitis COVID-19 (12/23/21) 2nd episode with symptoms starting 12/23/2021 with positive test on 12/24/2021. BMI 24.0-24.9, adult Abnormal fasting glucose (09/01/20) glucose elevated at 101 on 09/01/2020 . Fasting glucose 89 on 09/17/2021. Glucose elevated at 107 with hemoglobin A1c 5.6 on 09/18/2022. glucose 114 on 10/01/2023. Fasting glucose 93 with hemoglobin A1c 6.1, urine microalbumin ratio 3 with GFR 82 on 10/28/2024. BMI 25.0-25.9,adult BMI 26.0-26.9,adult Encounter for screening for COVID-19 COVID-19 (04/23/20) BMI 28.0-28.9,adult Arrhythmia Essential (primary) hypertension Encounter for other specified surgical aftercare Nocturia PSA 1.02 on 09/17/2021. Anemia hemoglobin 15.3 with iron 57 and 13% saturation on 09/01/2020. Hemoglobin 13.2 with hematocrit 41 with iron 65 with 17% saturation and ferritin low at 15 on 09/17/2021. Hemoglobin 13.7 with iron 37 with 11% saturation and ferritin 32 on 09/18/2022. hemoglobin 12.1, iron 27 with 7% saturation and ferritin 8 with vitamin B12 482 and folic acid 8.1 on 10/01/2023. hemoglobin normal at 14.4 on 10/26/2024. Mixed hyperlipidemia total cholesterol 222, HDL 63, triglycerides 75, LDL 142 on 09/01/2020 . Total cholesterol 192, HDL 68, triglycerides 70, LDL 108 on 09/17/2021. Total cholesterol 173, HDL 51, triglycerides 160, LDL 96 on 09/18/2022. Total cholesterol 131, triglycerides 110, HDL 53, LDL 109 with ratio of 3.5 on 10/01/2023. Cholesterol 222, triglycerides 85, HDL 60, LDL 143 with ratio 3.7 on 10/26/2024. Lipoma of back Seborrheic dermatitis <Henny French PA-C - Last Filed: 12/21/24 11:16> Surgical History Surgical History: Surgical History Bilateral inguinal hernia Surgical repair Hx of tonsillectomy (~1960) H/O removal of cyst (~1967) removal of cyst in 1967 and in 2009 <MARTÍN Cruz Last Filed: 12/21/24 11:16> Family History Family History: Family History Father Heart disease Mother Cerebrovascular accident Sibling Heart disease Hypertension <Henny French PA-C - Last Filed: 12/21/24 11:16> Social History Social History: Social History Smoking status: Never smoker Alcohol intake: never Substance use: never Substance use type: does not use Lack of Transportation: No Lack of Food: Never True Current Housing: I Have Housing Concerned About Future Housing: No Difficulty Paying Gas/Electric Bills: No Difficulty Paying for Meds: No Currently Unemployed: No Education: Bachelor's Degree Difficulty w/ Childcare or Family Care: No Gender identity (if verbalized by the patient): Male <Henny French PA-C - Last Filed: 12/21/24 11:16> Exam Const: General: healthy appearing and no acute distress <Antonia Ramírez Duran III, DO - Last Filed: 12/20/24 21:50> Nutritional Appearance: well nourished <Antonia Ramírez Duran III, DO - Last Filed: 12/20/24 21:50> Orientation/consciousness: patient oriented x3 <Antonia Ramírez Duran III, DO - Last Filed: 12/20/24 21:50> Limitations: no limitations <Antonia Ramírez Duran III, DO - Last Filed: 12/20/24 21:50> Eyes: Pupils: Equal, round and reactive pupils present <Antonia Ramírez Duran III, DO - Last Filed: 12/20/24 21:50> EOM: EOMs intact bilaterally <Antonia Ramírez Duran III, DO - Last Filed: 12/20/24 21:50> Resp: Effort & Inspection: normal respiratory effort <Antoina Ramírez Duran III, DO - Last Filed: 12/20/24 21:50> Auscultation: clear to auscultation bilaterally <Antonia Ramírez Duran III, DO - Last Filed: 12/20/24 21:50> Cardio: Rate: regular rate <Antonia Ramírez Duran III, DO - Last Filed: 12/20/24 21:50> Rhythm: regular rhythm <Antonia Ramírez Duran III, DO - Last Filed: 12/20/24 21:50> GI: GI Palp: Yes Soft to palpation and Yes Tenderness to palpation present (GI) (lower abdomen) <Antonia Ramírez Duran III, DO - Last Filed: 12/20/24 21:50> Auscultation: normal bowel sounds <Antonia Ramírez Duran III, DO - Last Filed: 12/20/24 21:50> Back/Spine/Pelvis: Back: no CVA tenderness <Antonia Ramírez Duran III, DO - Last Filed: 12/20/24 21:50> Skin: General skin exam: normal color <Antonia Ramírez Duran III, DO - Last Filed: 12/20/24 21:50> Rashes: no rashes <Antonia Ramírez Duran III, DO - Last Filed: 12/20/24 21:50> Wounds: no wounds <Antonia Ramírez Duran III, DO - Last Filed: 12/20/24 21:50> Neuro: General: patient oriented x3, moves all extremities, no meningeal signs, no focal motor deficits and CN's II-XI intact bilaterally <Antonia Ramírez Duran III, DO - Last Filed: 12/20/24 21:50> Cranial nerves: Yes Nystagmus not present <Antonia Ramírez Duran III, DO - Last Filed: 12/20/24 21:50> Speech: normal speech <Antonia Ramírez Duran III, DO - Last Filed: 12/20/24 21:50> Extrem: General: normal to inspection and no clubbing, cyanosis or edema <Antonia Ramírez Duran III, DO - Last Filed: 12/20/24 21:50> Psych: Mental Status: mental status grossly normal <Antonia Ramírez Duran III, DO - Last Filed: 12/20/24 21:50> Affect: normal affect <Antonia Ramírez Duran III, DO - Last Filed: 12/20/24 21:50> Attitude: cooperative <Antonia Ramírez Duran III, DO - Last Filed: 12/20/24 21:50> Course Vital Signs Vital signs: Vital Signs Temperature 97.6 F 12/20/24 15:25 Pulse Rate 95 12/20/24 15:25 Respiratory Rate 15 12/20/24 15:25 Blood Pressure 132/90 12/20/24 15:25 Pulse Oximetry 100 12/20/24 15:25 Oxygen Delivery Room Air 12/20/24 15:25 Temperature 97.6 F 12/20/24 21:35 Pulse Rate 55 L 12/20/24 21:35 Respiratory Rate 20 12/20/24 21:35 Blood Pressure 154/84 H 12/20/24 21:35 Pulse Oximetry 100 12/20/24 21:35 Oxygen Delivery Room Air 12/20/24 19:20 <Henny French PA-C - Last Filed: 12/21/24 11:16> Vital Signs Temperature 97.6 F 12/20/24 15:25 Pulse Rate 95 12/20/24 15:25 Respiratory Rate 15 12/20/24 15:25 Blood Pressure 132/90 12/20/24 15:25 Pulse Oximetry 100 12/20/24 15:25 Oxygen Delivery Room Air 12/20/24 15:25 Temperature 97.6 F 12/20/24 21:35 Pulse Rate 55 L 12/20/24 21:35 Respiratory Rate 20 12/20/24 21:35 Blood Pressure 154/84 H 12/20/24 21:35 Pulse Oximetry 100 12/20/24 21:35 Oxygen Delivery Room Air 12/20/24 19:20 <Antonia Duran III, DO - Last Filed: 12/20/24 21:50> MDM - Abdominal Pain MDM Narrative Medical decision making narrative: pt has lower abdominal pain and no bm for 3 days, labs unremarkable, abd x ray shows static stool in rectum and distal colon. will give enema and recheck. Pt had some results from enema wants to go home. <Antonia Duran III, DO - Last Filed: 12/20/24 21:50> Lab Data Result diagrams: 12/20/24 16:46 12/20/24 16:46 <Henny French PA-C - Last Filed: 12/21/24 11:16> Labs: Lab Results 12/20/24 12/20/24 Range/Units 16:46 17:33 WBC 9.9 (4.5-10.0) K/mm3 RBC 4.67 (4.6-6.20) M/mm3 Hgb 13.8 L (14.0-18.0) g/dL Hct 41.2 L (42.0-52.0) % MCV 88.2 (80-100) fl MCH 29.6 (26-34) pg MCHC 33.5 (32-36) g/dl RDW 13.1 (11.5-14.5) % Plt Count 189 (150-375) k/mm3 MPV 10.9 H (7.4-10.4) fl Immature Gran % (Auto) 0.5 (0-0.5) % Neut % (Auto) 85.0 H (45.5-73.1) % Lymph % (Auto) 6.7 L (18.3-44.2) % Tarrant % (Auto) 6.8 (2.6-8.5) % Eos % (Auto) 0.8 (0-4.4) % Baso % (Auto) 0.2 (0.2-1.2) % Lymph # (Auto) 0.66 L (0.9-3.2) K/mm3 Tarrant # (Auto) 0.7 H (0.1-0.6) K/mm3 Eos # (Auto) 0.1 (0-0.3) K/mm3 Baso # (Auto) 0.0 (0.0-0.1) K/mm3 Abs Immat Gran (auto) 0.05 H (0.00-0.031) K/mm3 Absolute Neuts (auto) 8.4 H (1.3-6.7) K/mm3 Absolute Nucleated RBC 0.000 (0.0-0.012) K/mm3 Nucleated RBC % 0.0 (0.0-0.2) % Sodium 134 L (137-145) mmol/L Potassium 4.4 (3.4-5.0) mmol/L Chloride 101 (98-107) mmol/L Carbon Dioxide 25 (22-30) mmol/L Anion Gap 8 (4-12) mmol/L BUN 19 (9-20) mg/dL Creatinine 1.20 (0.7-1.3) mg/dL Estim Creat Clear Calc 47 ml/min Estimated GFR 60 (59 - ) Glucose 111 H (65-110) mg/dL Calcium 9.4 (8.4-10.2) mg/dL Total Bilirubin 0.4 (0.2-1.3) mg/dL AST 27 (17-59) U/L ALT 27 (6-50) U/L Alkaline Phosphatase 68 (38-126) U/L Total Protein 7.6 (6.3-8.2) g/dL Albumin 4.1 (3.5-5.1) g/dL Lipase 79 (23-300) U/L Urine Color Yellow (Yellow) Urine Appearance Cloudy H (Clear) Urine pH 5.5 (5.0-9.0) Ur Specific Bicknell 1.021 (1.001-1.035) Urine Protein Negative (Negative) mg/dL Urine Glucose (UA) Negative (Negative) mg/dL Urine Ketones Trace H (Negative) mg/dL Ur Blood (Man) Negative (Negative) Urine Nitrate Negative (Negative) Urine Bilirubin Negative (Negative) Urine Urobilinogen 1.0 (<2.0) mg/dL Add Ur Microanalysis Reviewed Leukocyte Esterase Rfl Trace H (Negative) BEVERLEY/UL Urine RBC 0-2 (0-2) /hpf Urine WBC 0-5 (0-3) /hpf Ur Squamous Epith Cells Occasional (Few) /hpf Urine Bacteria None seen /hpf Urine Casts 3-5 <Henny French PA-C - Last Filed: 12/21/24 11:16> Lab Results 12/20/24 12/20/24 Range/Units 16:46 17:33 WBC 9.9 (4.5-10.0) K/mm3 RBC 4.67 (4.6-6.20) M/mm3 Hgb 13.8 L (14.0-18.0) g/dL Hct 41.2 L (42.0-52.0) % MCV 88.2 (80-100) fl MCH 29.6 (26-34) pg MCHC 33.5 (32-36) g/dl RDW 13.1 (11.5-14.5) % Plt Count 189 (150-375) k/mm3 MPV 10.9 H (7.4-10.4) fl Immature Gran % (Auto) 0.5 (0-0.5) % Neut % (Auto) 85.0 H (45.5-73.1) % Lymph % (Auto) 6.7 L (18.3-44.2) % Tarrant % (Auto) 6.8 (2.6-8.5) % Eos % (Auto) 0.8 (0-4.4) % Baso % (Auto) 0.2 (0.2-1.2) % Lymph # (Auto) 0.66 L (0.9-3.2) K/mm3 Tarrant # (Auto) 0.7 H (0.1-0.6) K/mm3 Eos # (Auto) 0.1 (0-0.3) K/mm3 Baso # (Auto) 0.0 (0.0-0.1) K/mm3 Abs Immat Gran (auto) 0.05 H (0.00-0.031) K/mm3 Absolute Neuts (auto) 8.4 H (1.3-6.7) K/mm3 Absolute Nucleated RBC 0.000 (0.0-0.012) K/mm3 Nucleated RBC % 0.0 (0.0-0.2) % Sodium 134 L (137-145) mmol/L Potassium 4.4 (3.4-5.0) mmol/L Chloride 101 (98-107) mmol/L Carbon Dioxide 25 (22-30) mmol/L Anion Gap 8 (4-12) mmol/L BUN 19 (9-20) mg/dL Creatinine 1.20 (0.7-1.3) mg/dL Estim Creat Clear Calc 47 ml/min Estimated GFR 60 (59 - ) Glucose 111 H (65-110) mg/dL Calcium 9.4 (8.4-10.2) mg/dL Total Bilirubin 0.4 (0.2-1.3) mg/dL AST 27 (17-59) U/L ALT 27 (6-50) U/L Alkaline Phosphatase 68 (38-126) U/L Total Protein 7.6 (6.3-8.2) g/dL Albumin 4.1 (3.5-5.1) g/dL Lipase 79 (23-300) U/L Urine Color Yellow (Yellow) Urine Appearance Cloudy H (Clear) Urine pH 5.5 (5.0-9.0) Ur Specific Bicknell 1.021 (1.001-1.035) Urine Protein Negative (Negative) mg/dL Urine Glucose (UA) Negative (Negative) mg/dL Urine Ketones Trace H (Negative) mg/dL Ur Blood (Man) Negative (Negative) Urine Nitrate Negative (Negative) Urine Bilirubin Negative (Negative) Urine Urobilinogen 1.0 (<2.0) mg/dL Add Ur Microanalysis Reviewed Leukocyte Esterase Rfl Trace H (Negative) BEVERLEY/UL Urine RBC 0-2 (0-2) /hpf Urine WBC 0-5 (0-3) /hpf Ur Squamous Epith Cells Occasional (Few) /hpf Urine Bacteria None seen /hpf Urine Casts 3-5 <Antonia Duran III, DO - Last Filed: 12/20/24 21:50> Imaging Data Radiologist's impression: ITS Impressions Abdomen X-Ray 12/20/24 16:42 IMPRESSION: Significant fecal stasis within the rectum and descending colon <Henny French PA-C - Last Filed: 12/21/24 11:16> ITS Impressions Abdomen X-Ray 12/20/24 16:42 IMPRESSION: Significant fecal stasis within the rectum and descending colon <Antonia Duran III, DO - Last Filed: 12/20/24 21:50> Discharge Plan Discharge Clinical Impression: Constipation Qualifiers: Constipation type: unspecified constipation type Qualified Code(s): K59.00 - Constipation, unspecified <Henny French PA-C - Last Filed: 12/21/24 11:16> Patient Disposition: Home <MARTÍN Cruz Last Filed: 12/21/24 11:16> Condition: Improved <MARTÍN Cruz Last Filed: 12/21/24 11:16> Instructions: Antibiotic Form, Constipation (DC) <MARTÍN Cruz Last Filed: 12/21/24 11:16> Patient Language: [place]an <Henny French PA-C - Last Filed: 12/21/24 11:16> Prescriptions: No Action ferrous sulfate 325 mg (65 mg iron) tablet,delayed release (DR/EC) 325 mg PO DAILY Pepcid Complete 10-800-165 mg tablet,chewable 1 tablet PO DAILY PRN (Reason: indigestion) polyethylene glycol 3350 [Miralax] 17 gram/dose powder 17 g PO DAILY PRN (Reason: constipation) <MARTÍN Cruz Last Filed: 12/21/24 11:16> Follow-up/Referrals: Destin Escalona MD [Primary Care Provider] - <Henny French PA-C - Last Filed: 12/21/24 11:16>
[2024-12-20 16:57] LABS: Hematocrit 41.2 % (42.0-52.0); Hemoglobin 13.8 g/dL (14.0-18.0); Immature Granulocyte Percent A 0.5 % (0-0.5); Lymphocytes Absolute Auto 0.66 K/mm3 (0.9-3.2); Mean Corpuscular HGB Conc 33.5 g/dl (32-36); Mean Corpuscular Hemoglobin 29.6 pg (26-34); Mean Corpuscular Volume 88.2 fl (80-100); Nucleated Red Blood Cells Absolute Auto 0.000 K/mm3 (0.0-0.012); Nucleated Red Blood Cells Perc 0.0 % (0.0-0.2); Platelet Count Result 189 k/mm3 (150-375); Red Blood Count 4.67 M/mm3 (4.6-6.20); White Blood Count 9.9 K/mm3 (4.5-10.0)
[2024-12-20 17:20] LABS: Alanine Aminotransferase 27 U/L (6-50); Albumin Level 4.1 g/dL (3.5-5.1); Alkaline Phosphatase 68 U/L (38-126); Anion Gap 8 mmol/L (4-12); Aspartate Amino Transferase 27 U/L (17-59); Bilirubin,Total 0.4 mg/dL (0.2-1.3); Blood Urea Nitrogen 19 mg/dL (9-20); Calcium 9.4 mg/dL (8.4-10.2); Carbon Dioxide 25 mmol/L (22-30); Chloride 101 mmol/L (98-107); Estimated CRCL calculation 47 ml/min; Estimated Glomerular Filt Rate 60; Glucose 111 mg/dL (65-110); Lipase 79 U/L (23-300); Potassium 4.4 mmol/L (3.4-5.0); Sodium 134 mmol/L (137-145); Total Protein 7.6 g/dL (6.3-8.2)
[2024-12-20 17:53] LABS: Add Urine Microscopic? YES; Appearance Urine Cloudy (Clear); Glucose Urine UA Negative (Negative); Leukocyte Esterase Ur Trace LEU/UL (Negative); Need Manual Microscopic Reviewed; Nitrate Urine Negative (Negative); Specific Grav Ur 1.021 (1.001-1.035)
[2024-12-20 18:27] VITALS: BP 129/85; PULSE 70; RESP 18; TEMP 36.8; O2SAT 100
--- OUTSIDE RECORDS SUMMARY | 2024-12-20 18:59 | XMS_ITS | Clinical Summary ---
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
--- OUTSIDE RECORDS SUMMARY | 2024-12-20 18:59 | XMS_ITS | Encounter Summary ---
Author Organization [facility] Healthcare Address [address] [place] [address] Care Team Providers Care Senior Program Analyst Name Role Phone Destin Escalona MD Primary Care Provider [phone] Malachi Steen MD Unavailable [phone] Mariah Sharma RN Unavailable Unavailable Faisal Montalvo MD Unavailable [phone] Jair Sexton MD Unavailable [phone] Adriel Moore MD PhD Unavailable [phone] Maureen Hernández LCSW Unavailable Unavaila ble Encounter Details Date Type Department Care Team (Late st Contact Info) Description 12/20/2024 Orders Only RAD ONC TREATMENTS Miscellaneous, Not In File Social History Tobacco Use Types Packs/Day Years Used Date Smoking Tobacco: Former Cigarettes 0.8 3 0 06/16/1973 - 06/16/1976 Passive Smoke Exposure: Past Smokeless Tobacco: Never [facility] Utilities Answer Date Recorded In the past 12 months has [employer], gas, oil, or water [employer] threatened to shut off services in your [...] answer 09/22/2024 How often do you attend [facility] or cheondoism services? Patient unable to answer 09/22/2024 Do you belong to any clubs o r organizations such as judaism groups, unions, fraternal or athletic groups, or [...] any time in the past 12 m [facility], were you homeless or living in a senior care (including now)? No 09/22/2024 Personal Safety Answer Date Recorded Have you ever been in or are you currently in a harmful physical or emotional relationship or is someone making you feel afraid or unsafe? 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 Gender Identity Male 09/08/2024 11:39 AM CDT [...] on filedocumented in this encounter Care Teams Senior Program Analyst Relationship Specialty Start Date End Date Destin Escalona MD [address] [address] PCP - General Family Medicine 05/02/20 Malachi Steen MD [address] [place] [address] DR BROOKS [address] [place] [address] Consulting Physician Otolaryngology 09/03/24 Mariah Sharma, RN Nurse Navigator 09/21/24 Faisal Montalvo MD [address] [facility] [address] [place] [address] Medical Oncologist/Woodworking Machine Offbearer Medical Oncology 09/22/24 Jair Sexton MD [address] [facility] DEPT OTOLARYNGOLOGY, [place] [address] [place] [address] Consulting Physician Otolaryngology 09/22/24 Ardiel Moore MD PhD [address] [facility] [address] [place] [address] Radiation Oncologist Radiation Oncology 09/22/24 Maureen Hernández LCSW Desktop Publisher 09/22/24 documented as of this encounter
--- OUTSIDE RECORDS SUMMARY | 2024-12-20 18:59 | XMS_ITS | Clinical Summary ---
Author Organization [facility] [place] [address] [facility] [address] Address [address] [place] [address] Care Team Providers Care [employer]ove [employer] Inspector Name Role Phone Destin Escalona MD Primary Care Provider [phone] Malachi Steen MD Unavailable [phone] Mariah Sharma RN Unavailable Unavailable Faisal Montalvo MD Unavailable [phone] Jair Sexton MD Unavailable [phone] Adriel Moore MD PhD Unavailable [phone] Maureen Hernández LCSW Unavailable Unavaila ble Allergies No known active allergies Medications ferrous sulfate 325 mg (65 mg of elemental iron) tabletIndication s:Supplement Take 1 tablet (65 mg of elemental iron total) by mouth well treatment offsider before breakfast Active oxyCODONE (ROXICODONE) 5 mg [...] Description 12/20/2024 8:53 AM CDT Hospital Encounter [facility] Advanced Medicine Radiation Oncology [address] [facility] [place] [address] 12/20/2024 Orders Only RAD ONC TREATMENTS Miscellaneous, Not In File 12/16/2024 11:15 AM CDT Office Visit [facility] Oncology [address] 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 - Lab Collection [address] [facility] 5 [place] [address] Malignant neoplasm without specification of site (HCC) 12/16/2024 9:33 AM CDT - 12/16/2024 11:59 PM CDT Hospital Encounter [facility] Radiation Oncology [address] [facility] [place] [address] Discharge Disposition: Discharge to home or self care 12/16/2024 Orders Only RAD ONC TREATMENTS Miscellaneous, Not In File 12/15/2024 10:46 AM CDT - 12/15/2024 11:59 PM CDT Hospital Encounter [facility] Radiation Oncology [facility] [place] [address] Discharge Disposition: Discharge to home or self care 12/15/2024 Orders Only [facility] Oncology [address] [facility] 5 [place] [address] Antony Rubio MD Malignant neoplasm without specification of site (HCC) (Primary Dx) 12/15/2024 Orders Only RAD ONC TREATMENTS Miscellaneous, Not In File 12/14/2024 9:22 AM CDT - 12/14/2024 11:59 PM CDT Hospital Encounter [facility] Advanced Medicine Radiation Oncology [address] [place] [address] Discharge Disposition: Discharge to home or self care 12/14/2024 Documentation [facility] Nutrition Counseling 1 [place] [address] 12/14/2024 OTV [facility] Radiation Oncology [address] [facility] [place] [address] Adriel Moore MD PhD 12/14/2024 Orders Only RAD ONC TREATMENTS Miscellaneous, Not In File 12/13/2024 1:18 PM CDT - 12/13/2024 11:59 PM CDT Hospital Encounter [facility] Advanced Medicine Radiation Oncology [address] [facility] [place] [address] Discharge Disposition: Discharge to home or self care 12/13/2024 Orders Only RAD ONC TREATMENTS Miscellaneous, Not In File 12/11/2024 1:59 PM CDT - 12/11/2024 5:09 PM CDT Hospital Encounter [facility] Cancer [facility] [address] [place] [address] 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); Malignant neoplasm without specification of site (HCC) Discharge Disposition: Discharge to home or self care 12/10/2024 11:12 AM CDT - 12/10/2024 11:59 PM CDT Hospital Encounter [facility] Advanced Medicine Radiation Oncology [address] [place] [address] Discharge Disposition: Discharge to home or self care 12/10/2024 9:00 AM CDT Infusion [facility] - Infusion [address] [facility] Floor 5 [place] [address] 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) 12/09/2024 Orders Only RAD ONC TREATMENTS Miscellaneous, Not In File 12/08/2024 3:42 PM CDT - 12/08/2024 11:59 PM CDT Hospital Encounter [facility] Radiation Oncology 4921 [place] [address] Discharge Disposition: Discharge to home or self care 12/08/2024 Orders Only RAD ONC TREATMENTS Miscellaneous, Not In File 12/07/2024 11:14 AM CDT - 12/07/2024 11:59 PM CDT Hospital Encounter [facility] Radiation Oncology [address] [place] [address] [place] [address] Adriel Moore MD PhD Discharge Disposition: Discharge to home or self care 12/07/2024 OTV [facility] Radiation Oncology [address] [facility] [place] [address] Adriel Moore MD PhD 12/07/2024 Orders Only RAD ONC TREATMENTS Miscellaneous, Not In File 12/06/2024 7:40 PM CDT - 12/06/2024 11:59 PM CDT Hospital Encounter [facility] Radiation Oncology 49[address] [place] [address] Discharge Disposition: Discharge to home or self care 12/03/2024 Telephone [facility] Head and Neck Tumor Center [address] [place] [address] 4th [place] [address] Mariah Sharma, LIZBETH Navigation follow up-tx start check in 11/19/2024 Telephone [facility] Oncology [address] [place] [address] 5 [place] [phone] Henny Harper RN 11/18/2024 11:59 AM CDT - 11/18/2024 11:59 PM CDT Hospital Encounter [facility] Radiation Oncology [address] [place] [address] Adriel Moore MD PhD Discharge Disposition: Discharge to home or self care 11/09/2024 Telephone [facility] Nutrition Counseling 1 [place] [address] 11/03/2024 3:00 PM CDT Therapy [facility] Otolaryngology [address] [place] [address] 5 [place] [phone] Sarah Noland SLP Head and neck cancer (HCC) (Primary Dx); Dysphagia, unspecified type; 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) 11/03/2024 2:20 PM CDT Office Visit [facility] Department of Otolaryngology Head-Neck Division [address] [place] [address] 5 [place] [phone] Jair Sexton MD 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) 11/02/2024 Telephone [facility] Oncology [address] [place] [address] [place] [phone] Faisal Montalvo MD 10/28/2024 10:15 AM CDT Office Visit [facility] Oncology [address] [place] [phone] Faisal Montalvo MD Malignant neoplasm without specification of site (HCC) (Primary Dx); 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); 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); Head and neck cancer (HCC) 10/28/2024 9:15 AM CDT Lab [facility] - Lab Collection [address] [place] [address] 5 [place] [address] Neck mass; Malignant neoplasm without specification of site (HCC); 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); 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) 10/27/2024 Orders Only [facility] Oncology [address] [place] [phone] Joanie Banks BS Neck mass (Primary Dx) 10/26/2024 Telephone [facility] Nutrition Counseling [address] [place] [phone] 10/15/2024 9:30 AM CDT Clinical Support [facility] Department of Otolaryngology Head-Neck Division [address] [place] [phone] 10/15/2024 Telephone [facility] Otolaryngology [address] [place] [phone] Marietta Patterson MS 10/13/2024 Telephone [facility] Head and Neck Tumor Center [address] [place] [phone] Mariah Sharma, LIZBETH Navigation follow up- hospital discharge check in 10/11/2024 1:43 PM CDT Anesthesia Event [facility] Operating Room 1 [place] [address] Jonathan Ochoa MD Dippolito, Jenny Irene, NP 10/11/2024 11:20 AM CDT - 10/11/2024 4:15 PM CDT Surgery [facility] Operating Room 1 [place] [address] Jair Sexton MD SP ROBOTIC GLOSSECTOMY 10/11/2024 9:19 AM CDT - 10/12/2024 2:31 PM CDT Hospital Encounter [facility] 1 [place] [address] Jair Sexton MD 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) Discharge Disposition: Discharge to home or self care 10/08/2024 Telephone [facility] Head and Neck Tumor Center [address] [place] [phone] Mariah Sharma, LIZBETH Navigation follow up- pre-surgical check in 10/05/2024 Telephone [facility] Oncology [address] [place] [phone] Henny Harper, LIZBETH Pre Cert 09/30/2024 3:30 PM CDT Pre-Admission Testing [facility] ([facility]) [address] [place] [address] Preoperative testing (Primary Dx) 09/30/2024 2:30 PM CDT Lab [facility] [place] - Lab Collection [address] [place] [address] Malignant neoplasm without specification of site (HCC); Head and neck cancer (HCC) 09/30/2024 10:00 AM CDT Lab [facility] - Lab Collection [address] [place] [address] Malignant neoplasm without specification of site (HCC); Head and neck cancer (HCC) 09/30/2024 8:00 AM CDT Office Visit [facility] Oncology [address] [place] [phone] Faisal Montalvo MD Malignant neoplasm without specification of site (HCC) (Primary Dx); Head and neck cancer (HCC) 09/30/2024 Telephone [facility] Oncology [address] [place] [phone] Henny Harper RN 09/30/2024 Telephone [facility] Head and Neck Tumor Center [address] [place] [address] Mariah Sharma, RN Navigation follow up 09/28/2024 12:46 PM CDT - 09/28/2024 11:59 PM CDT Hospital Encounter [facility] - PET [address] [facility] Floor 8 [place] [address] Discharge Disposition: Discharge to home or self care 09/28/2024 12:45 PM CDT - 09/28/2024 11:59 PM CDT Hospital Encounter [facility] - PET [address] [facility] Floor 8 [place] [address] Head and neck cancer (HCC) Discharge Disposition: Discharge to home or self care 09/28/2024 11:00 AM CDT Consult [facility] Radiation Oncology 4921 [place] [address] Adriel Moore MD PhD Head and neck cancer (HCC) 09/22/2024 Telephone [facility] [address] [phone] Chela Solis 09/22/2024 Documentation [facility] Head and Neck Tumor Center [address] [phone] Maureen Hernández LCSW 09/21/2024 Telephone [facility] Head and Neck Tumor Center [address] [phone] Mariah Sharma, summer child caregiver Initial Call 09/21/2024 Telephone [facility] Advanced Medicine Radiation Oncology [facility] [place] [address] Adriel Moore MD PhD 09/20/2024 Documentation [facility] Head and Neck Tumor Center [address] [phone] Maureen Hernández LCSW 09/20/2024 Orders Only [facility] Department of Otolaryngology Head-Neck Division [address] [facility] Floor 5 [place] [phone] Jair Sexton MD Head and neck cancer [...] Tobacco: Never Tobacco Cessation:Counseling Given: Not Answered [facility] Utilities Answer Date Recorded In the past [...] answer 09/22/2024 How often do you attend [facility] or nondenominational services? Patient unable to answer 09/22/2024 Do you belong to any clubs o r organizations such as episcopal groups, unions, fraternal or athletic groups, or [...] any time in the past 12 m [facility], were you homeless or living in a long term (including now)? No 09/22/2024 Personal Safety Answer Date Recorded Have you ever been in or are you currently in a harmful physical or emotional relationship or is someone making you feel afraid or unsafe? 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 Gender Identity Male 09/08/2024 11:39 AM CDT [...] and neck with unknown primary site (HCC) ID AN PROCEDURE PLACEHOLDER Routine 10/11/2024 2:16 PM CDT ID AN ELECTIVE ENDOTRACHEAL AIRWAY Routine 10/11/2024 2:16 [...] BLOOD ORDERABLES Final Result Performing Organization Address City/[facility]/ZIP Co de Phone Number [facility] Department [place] [address] * Magnesium (12/16/2024 10:01 AM CDT) Pathologist [facility] Magnesium 2.4 1.4 - 2.5 mg/dL Blood 12/16/2024 10:0 1 AM CDT 12/16/2024 10:23 AM CDT Antony Rubio MD LAB BLOOD ORDERABLES Final Result Performing Organization Address [facility] de Phone Number [facility] Department [place] [address] * (ABNORMAL) Basic metabolic panel (12/16/2024 10:01 AM CDT) [facility] Sodium 138 135 - 145 mmol/L Potassium, pl 4.7 3.3 - 4.9 mmol/L [facility] Chloride 103 97 - 110 mmol/L [facility] CO2 28 22 - 32 mmol/L [facility] Anion gap 7 2 - 15 mmol/L [facility] BUN 28(H) 6 - 25 mg/dL [facility] Creatinine 1.47(H) 0.80 - 1.30 mg/dL [facility] Glucose 100 70 - 199 mg/dL [facility] Comment: Interpretive Data Fasting glucose >/= [...] 2022. Calcium 9.5 8.5 - 10.3 mg/dL [facility] Blood 12/16/2024 10:0 1 AM CDT 12/16/2024 10:23 AM CDT us Antony Rubio MD LAB BLOOD ORDERABLES Final Result Performing Organization Address [facility] Co de Phone Number [facility] Department [place] [address] * RAD ONC ARIA SESSION SUMMARY (12/16/2024 [...] ORD ERABLES Final Result Performing Organization Address [facility] Co de Phone Number ARIA * RAD [...] ORD ERABLES Final Result Performing Organization Address [facility] Co de Phone Number MOLLY He RAD [...] 12/09/2024 9:26 AM CDT us Estela Wong PYROTECHNIC ASSEMBLER LAB BLOOD ORDERABLES Final Result [facility] Department [place] [address] * Differential, auto (12/09/2024 9:23 AM CDT) Neutrophil abs 3.86 1.50 - 6.50 K/cumm Comment:Testing performed by : [facility]e [facility], [address] [place] [address] Lymphocyte abs 1.45 0.80 - 3.30 K/cumm [facility] Comment:Testing performed by : [facility], [address] [place], [place] [id number] Monocyte abs 0.55 0.20 - 0.80 K/cumm [facility] Comment:Testing performed by : [facility], [address] [place], [place] [id number] Eosinophil abs 0.29 0.00 - 0.50 K/cumm [facility] Comment:Testing performed by : [facility], [address] [place], [place] [id number] Basophil abs 0.03 0.00 - 0.10 K/cumm [facility] Comment:Testing performed by : [facility], [address] [place] [address] Neutrophil pct 62.5 % [facility] Comment: Interpretive Data Percent cell count reference ranges are not reported, since discordance with absolute values may lead to misinterpretation of CBC data. Current Interpretive Data was last revised on 2017. Testing performed by: [facility], [address] [place] [phone] Lymphocyte pct 23.4 % [facility] Comment: Interpretive Data Percent cell count reference ranges are not reported, since discordance with absolute values may lead to misinterpretation of CBC data. Current Interpretive Data was last revised on 2017. Testing performed by: [facility], [address] [place] [phone] Monocyte pct 8.9 % [facility] Comment: Interpretive Data Percent cell count reference ranges are not reported, since discordance with absolute values may lead to misinterpretation of CBC data. Current Interpretive Data was last revised on 2017. Testing performed by: [facility], [address] [place] [phone] Eosinophil pct 4.7 % [facility] Comment: Interpretive Data Percent cell count reference ranges are not reported, since discordance with absolute values may lead to misinterpretation of CBC data. Current Interpretive Data was last revised on 2017. Testing performed by: [facility], [address] [place] [phone] Basophil pct 0.6 % [facility] Comment: Interpretive Data Percent cell count reference ranges are not reported, since discordance with absolute values may lead to misinterpretation of CBC data. Current Interpretive Data was last revised on 2017. Testing performed by: [facility], [address] [place] [phone] Blood 12/09/2024 9:23 AM CDT 12/09/2024 9:24 AM CDT Estela Wong PYROTECHNIC ASSEMBLER LAB BLOOD ORDERABLES Final Result [facility] Department [place] [address] * CBC with auto differential (12/09/2024 9:23 AM CDT) WBC 6.18 3.80 - 9.90 K/cumm Comment:Testing performed by : [facility], [address] [place] [phone] Hgb 14.2 13.0 - 17.5 g/dL [facility] Comment:Testing performed by : [facility], [address] [place] [phone] Hct 43.4 38.9 - 50.3 % [facility] Comment:Testing performed by : [facility], [address] [place] [phone] Plt 205 150 - 400 K/cumm [facility] Comment:Testing performed by : [facility], [address] [place] [phone] MPV 9.0 6.8 - 10.4 fL [facility] Comment:Testing performed by : [facility], [address] [place] [address] RBC 4.88 4.30 - 5.80 M/cumm [facility] Comment:Testing performed by : [facility], [address] [place] [address] MCV 88.8 81.3 - 96.4 fL [facility] Comment:Testing performed by : [facility], [address] [place] [address] MCH 29.1 27.1 - 33.3 pg [facility] Comment:Testing performed by : [facility], [address] [place] [address] MCHC 32.7 32.3 - 35.7 g/dL [facility] Comment:Testing performed by : [facility], [address] [place] [address] RDW CV 14.2 11.1 - 14.9 % [facility] Comment:Testing performed by : [facility], [address] [place] [address] NRBC abs 0.00 0.00 - 0.01 K/cumm [facility] Comment:Testing performed by : [facility], [address] [place] [address] Blood 12/09/2024 9:23 AM CDT 12/09/2024 9:24 AM CDT Estela Wong PYROTECHNIC ASSEMBLER LAB BLOOD ORDERABLES Final Result [facility] Department [place] [address] * Magnesium (12/09/2024 9:23 AM CDT) Magnesium 2.3 1.4 - 2.5 mg/dL Blood 12/09/2024 9:23 AM CDT 12/09/2024 9:26 AM CDT Estela Wong NP LAB BLOOD ORDERABLES Final Result [facility] Department [place] [address] * Comprehensive metabolic panel (12/09/2024 9:23 AM CDT) Sodium 138 135 - 145 mmol/L Potassium, pl 4.2 3.3 - 4.9 mmol/L [facility] Chloride 104 97 - 110 mmol/L [facility] CO2 26 22 - 32 mmol/L [facility] Anion gap 8 2 - 15 mmol/L [facility] BUN 17 6 - 25 mg/dL [facility] Creatinine 1.08 0.80 - 1.30 mg/dL [facility] Glucose 123 70 - 199 mg/dL [facility] Comment: Interpretive Data Fasting glucose >/= [...] 2022. Calcium 9.2 8.5 - 10.3 mg/dL [facility] Bilirubin, total 0.4 0.1 - 1.2 mg/dL [facility] Protein, pl 7.5 6.5 - 8.5 g/dL [facility] Albumin 4.3 3.5 - 5.0 g/dL [facility] Alk phos 79 40 - 130 Units/L [facility] ALT 13 7 - 55 Units/L [facility] AST 22 10 - 50 Units/L [facility] Blood 12/09/2024 9:23 AM CDT 12/09/2024 9:26 AM CDT Estela Angelina Slane PYROTECHNIC ASSEMBLER LAB BLOOD ORDERABLES Final Result [facility] Department [place] [address] * RAD ONC ARIA SESSION SUMMARY (12/09/2024 [...] ORD ERABLES Final Result Performing Organization Address City/[facility]/ZIP Co de Phone Number [facility] * RAD [...] BLOOD ORDERABLES Final Result [facility] Department [place] [address] * Differential, auto (10/28/2024 9:28 AM CDT) Neutrophil abs 3.86 1.50 - 6.50 K/cumm Comment:Testing performed by : [facility], [address] [place], [place] [id number] Lymphocyte abs 1.26 0.80 - 3.30 K/cumm [facility] Comment:Testing performed by : [facility], [address] [place], [place] [id number] Monocyte abs 0.61 0.20 - 0.80 K/cumm [facility] Comment:Testing performed by : [facility], [address] [place] [address] Eosinophil abs 0.22 0.00 - 0.50 K/cumm C[facility]ER [facility] Comment:Testing performed by : [facility], [address] [place], [place] [id number] Basophil abs 0.05 0.00 - 0.10 K/cumm CERNER BJ Comment:Testing performed by : [facility], [address] [place], [place] [id number] Neutrophil pct 64.4 % [facility] Comment: Interpretive Data Percent cell count reference ranges are not reported, since discordance with absolute values may lead to misinterpretation of CBC data. Current Interpretive Data was last revised on 2017. Testing performed by: [facility], [address] [place] [address] Lymphocyte pct 21.0 % [facility] Comment: Interpretive Data Percent cell count reference ranges are not reported, since discordance with absolute values may lead to misinterpretation of CBC data. Current Interpretive Data was last revised on 2017. Testing performed by: [facility], [address] [place] [address] Monocyte pct 10.2 % [facility] Comment: Interpretive Data Percent cell count reference ranges are not reported, since discordance with absolute values may lead to misinterpretation of CBC data. Current Interpretive Data was last revised on 2017. Testing performed by: [facility], [address] [place] [address] Eosinophil pct 3.6 % [facility] Comment: Interpretive Data Percent cell count reference ranges are not reported, since discordance with absolute values may lead to misinterpretation of CBC data. Current Interpretive Data was last revised on 2017. Testing performed by: [facility], [address] [place] [phone] Basophil pct 0.8 % PAO MCCLENDON Comment: Interpretive Data Percent cell count reference ranges are not reported, since discordance with absolute values may lead to misinterpretation of CBC data. Current Interpretive Data was last revised on 2017. Testing performed by: [facility], [address] [place] [phone] Blood 10/28/2024 9:28 AM CDT 10/28/2024 9:31 AM CDT Faisal Montalvo MD LAB BLOOD ORDERABLES Final Result Performing Organization Address City/State/[facility] Co de Phone Number PAO MCCLENDON [facility] Department [place] [address] * (ABNORMAL) CBC with auto differential (10/28/2024 9:28 AM CDT) WBC 5.99 3.80 - 9.90 K/cumm Comment:Testing performed by : [facility], [address] [place] [phone] Hgb 13.0 13.0 - 17.5 g/dL PAO MCCLENDON Comment:Testing performed by : [facility], [address] [place] [phone] Hct 38.8(L) 38.9 - 50.3 % PAO MCCLEDNON Comment:Testing performed by : [facility], [address] [place] [address] Plt 286 150 - 400 K/cumm PAO MCCLENDON Comment:Testing performed by : [facility], [address] [place] [phone] MPV 8.6 6.8 - 10.4 fL PAO MCCLENDON Comment:Testing performed by : [facility], [address] [place] [address] RBC 4.45 4.30 - 5.80 M/cumm PAO [facility] Comment:Testing performed by : [facility], [address] [place] [address] MCV 87.3 81.3 - 96.4 fL [facility] Comment:Testing performed by : [facility], [address] [place] [address] MCH 29.3 27.1 - 33.3 pg [facility] Comment:Testing performed by : [facility], [address] [place] [address] MCHC 33.6 32.3 - 35.7 g/dL [facility] Comment:Testing performed by : [facility], [address] [place] [address] RDW CV 14.2 11.1 - 14.9 % [facility] Comment:Testing performed by : [facility], [address] [place] [address] NRBC abs 0.00 0.00 - 0.01 K/cumm [facility] Comment:Testing performed by : [facility], [address] [place] [address] Blood 10/28/2024 9:28 AM CDT 10/28/2024 9:31 AM CDT Faisal Montalvo MD LAB BLOOD ORDERABLES Final Result [facility] Department [place] [address] * aPTT (10/28/2024 9:28 AM CDT) aPTT [...] BLOOD ORDERABLES Final Result Performing Organization Address [facility] de Phone Number [facility] [place] [place] [address] * Protime-INR (10/28/2024 9:28 AM CDT) PT 10.1 9.7 - 13.0 sec INR 0.94 0.90 - 1.20 [facility] Comment: Interpretive data Oral anticoagulant therapeutic ranges: Venous thromboembolism prophylaxis or treatment: 2.0-3.0 CARDIOLOGY Standard range: 2.0-3.0 High-intensity range: 2.5-3.5 Refer to indication-specific guidelines for appropriate target ranges for prosthetic heart valve replacement. Current interpretive data was last revised on 2019. Blood 10/28/2024 9:28 AM CDT 10/28/2024 9:46 AM CDT Faisal Montalvo MD LAB BLOOD ORDERABLES Final Result Performing Organization Address [facility] [place] [address] * Magnesium (10/28/2024 9:28 AM CDT) Magnesium 2.3 1.4 - 2.5 mg/dL Blood 10/28/2024 9:28 AM CDT 10/28/2024 9:35 AM CDT Faisal Montalvo MD LAB BLOOD ORDERABLES Final Result Performing Organization Address [facility] de Phone Number [place] [address] * Comprehensive metabolic panel (10/28/2024 9:28 AM CDT) Sodium 139 135 - 145 mmol/L Potassium, pl 4.6 3.3 - 4.9 mmol/L [facility] Chloride 106 97 - 110 mmol/L [facility] CO2 26 22 - 32 mmol/L [facility] Anion gap 7 2 - 15 mmol/L [facility] BUN 19 6 - 25 mg/dL [facility] Creatinine 1.07 0.80 - 1.30 mg/dL [facility] Glucose 91 70 - 199 mg/dL [facility] Comment: Interpretive Data Fasting glucose >/= [...] 2022. Calcium 8.8 8.5 - 10.3 mg/dL [facility] Bilirubin, total 0.3 0.1 - 1.2 mg/dL [facility] Protein, pl 7.2 6.5 - 8.5 g/dL [facility] Albumin 3.9 3.5 - 5.0 g/dL [facility] Alk phos 74 40 - 130 Units/L [facility] ALT 12 7 - 55 Units/L [facility] AST 20 10 - 50 Units/L [facility] Blood 10/28/2024 9:28 AM CDT 10/28/2024 9:35 AM CDT us Faisal Montalvo MD LAB BLOOD ORDERABLES Final Result [facility] Department [place] [address] * Surgical pathology (10/11/2024 2:31 PM CDT) Tissue (Neck) 10/11/2024 2:3 1 PM CDT Tissue specimen (specimen) (Neck) 10/11/2024 2:46 PM CDT Tissue specimen (specimen) (Neck) 10/11/2024 3:53 PM CDT Tissue specimen (specimen) (Neck) 10/11/2024 3:54 PM CDT Tissue specimen (specimen) (Neck) 10/11/2024 3:54 PM CDT Narrative PATHOLOGY [facility] - 10/14/2024 6:33 PM CDT EPIC results best viewed via link to PDF [facility] [place] [address] Note to Patients: This report may contain [...] M : 1955 (Age: 68) Address: [address] [place] [address] Hospital #: [id number] Taken:10/11/2024 Received:10/11/2024 Reported: 10/14/2024 Patient Type: [facility] Inpatient Service: Ear Nose Throat Location: [place] [id number] Physician(s): Mariya Julian M.D. Diagnosis: A. Oropharynx, [...] evidence of malignancy in four nodes (0/4) [facility]/10/14/2024 18:33 By this signature, I attest that [...] 10/12/2024 15:10 PA(s): Carola Meredith, MS, PA ([facility]) CANCER CASE SUMMARY FOR MALIGNANT TUMORS OF [...] Surgical Pathology and Flow Cytometry Departments at [facility] as part of an ongoing software quality specialist program and in compliance with federally mandated [...] Surgical Pathology and Flow Cytometry Departments of [facility]. It has not been cleared or approved by the U. S. Food and Drug Administration. IMAGES AND SCANNED DOCUMENTS, IF INCLUDED, ONLY VIEWABLE IN PDF VERSION OF REPORT Jair Sexton MD LAB PATHOLOGY ORDERABLES F inal Result PATHOLOGY [facility] [address] [place], [place] [phone] * ID AN ELECTIVE ENDOTRACHEAL AIRWAY, ID AN PROCEDURE PLACEHOLDER (10/11/2024 2:16 PM CDT) [...] 9:41 AM CDT) ABO Rh A Positive [facility] OTHER 10/11/2024 9:41 AM CDT 10/11/2024 10:06 AM CDT Jair Sexton MD LAB BLOOD ORDERABLES Final Result [facility] [place] [address] [facility] * TYPE AND SCREEN 14 DAY (09/30/2024 4:52 PM CDT) ABO Rh A Positive [place], indirect Negative [facility] Blood 09/30/2024 4:52 PM CDT 09/30/2024 7:06 PM CDT Narrative [facility] - 09/30/2024 8:00 PM CDT Is this test being ordered in advance for a procedure?->Yes Expected date of procedure:->10/11/24 Has the patient been transfused in the past 3 months?->No us Juanita Wilson PYROTECHNIC ASSEMBLER LAB BLOOD BANK TEST O RDERABLES Final Result Performing Organization Address City/[facility] Co de Phone Number PAO MCCLENDON [facility] Department [place] [address] * eGFR (09/30/2024 10:02 AM CDT) eGFR [...] BLOOD ORDERABLES Final Result Performing Organization Address City/[facility] Co de Phone Number PAO MCCLENDON [facility] Department [place] [address] * Differential, auto (09/30/2024 10:02 AM CDT) Pathologist [facility] Neutrophil abs 3.78 1.50 - 6.50 K/cumm Comment:Testing performed by : [facility], [address] [place] [phone] Lymphocyte abs 1.24 0.80 - 3.30 K/cumm PAO [facility] Comment:Testing performed by : [facility], [address] [place] [phone] Monocyte abs 0.57 0.20 - 0.80 K/cumm [facility] Comment:Testing performed by : [facility], [address] [place] [phone] Eosinophil abs 0.16 0.00 - 0.50 K/cumm [facility] Comment:Testing performed by : [facility], [address] [place] [phone] Basophil abs 0.04 0.00 - 0.10 K/cumm [facility] Comment:Testing performed by : [facility], [address] [place] [phone] Neutrophil pct 65.3 % [facility] Comment: Interpretive Data Percent cell count reference ranges are not reported, since discordance with absolute values may lead to misinterpretation of CBC data. Current Interpretive Data was last revised on 2017. Testing performed by: [facility], [address] [place] [phone] Lymphocyte pct 21.4 % [facility] Comment: Interpretive Data Percent cell count reference ranges are not reported, since discordance with absolute values may lead to misinterpretation of CBC data. Current Interpretive Data was last revised on 2017. Testing performed by: [facility], [address] [place] [phone] Monocyte pct 9.8 % [facility] Comment: Interpretive Data Percent cell count reference ranges are not reported, since discordance with absolute values may lead to misinterpretation of CBC data. Current Interpretive Data was last revised on 2017. Testing performed by: [facility], [address] [place] [phone] Eosinophil pct 2.8 % [facility] Comment: Interpretive Data Percent cell count reference ranges are not reported, since discordance with absolute values may lead to misinterpretation of CBC data. Current Interpretive Data was last revised on 2017. Testing performed by: [facility], [address] [place] [phone] Basophil pct 0.7 % [facility] Comment: Interpretive Data Percent cell count reference ranges are not reported, since discordance with absolute values may lead to misinterpretation of CBC data. Current Interpretive Data was last revised on 2017. Testing performed by: [facility], [address] [place] [address] Blood 09/30/2024 10:0 2 AM CDT 09/30/2024 10:11 AM CDT Faisal Montalvo MD LAB BLOOD ORDERABLES Final Result [facility] [place] [address] * (ABNORMAL) CBC with auto differential (09/30/2024 10:02 AM CDT) WBC 5.79 3.80 - 9.90 K/cumm Comment:Testing performed by : [facility], [address] [place] [address] Hgb 14.0 13.0 - 17.5 g/dL PAO BJ Comment:Testing performed by : [facility], [address] [place] [address] Hct 41.9 38.9 - 50.3 % CERSLOAN BJ Comment:Testing performed by : [facility], [address] [place] [address] Plt 270 150 - 400 K/cumm CERSLOAN BJ Comment:Testing performed by : [facility], [address] [place] [address] MPV 9.0 6.8 - 10.4 fL [facility]ERS[facility]AN [facility]J Comment:Testing performed by : [facility], [address] [place] [address] RBC 4.76 4.30 - 5.80 M/cumm CERSLOAN BJ Comment:Testing performed by : [facility], [address] [place] [address] MCV 88.1 81.3 - 96.4 fL CERSLOAN [facility]J Comment:Testing performed by : [facility], [address] [place], [place] [phone] MCH 29.4 27.1 - 33.3 pg [facility]O [facility] Comment:Testing performed by : [facility], [address] [place], [place] [phone] MCHC 33.4 32.3 - 35.7 g/dL [facility] Comment:Testing performed by : [facility], [address] [place], [place] [phone] RDW CV 15.0(H) 11.1 - 14.9 % [facility] Comment:Testing performed by : [facility], [address] [place], [place] [phone] NRBC abs 0.00 0.00 - 0.01 K/cumm [facility] Comment:Testing performed by : [facility], [address] [place] [address] Blood 09/30/2024 10:0 2 AM CDT 09/30/2024 10:11 AM CDT us Faisal Montalvo MD LAB BLOOD ORDERABLES Final Result Performing Organization Address City/[facility] Co de Phone Number PAO [facility] [place] [phone] * aPTT (09/30/2024 10:02 AM CDT) aPTT [...] BLOOD ORDERABLES Final Result Performing Organization Address City/[facility] Co de Phone Number [facility] [place] [address] * Protime-INR (09/30/2024 10:02 AM CDT) [facility] PT 10.7 9.7 - 13.0 sec INR 0.99 0.90 - 1.20 [facility] Comment: Interpretive data Oral anticoagulant therapeutic ranges: Venous thromboembolism prophylaxis or treatment: 2.0-3.0 CARDIOLOGY Standard range: 2.0-3.0 High-intensity range: 2.5-3.5 Refer to indication-specific guidelines for appropriate target ranges for prosthetic heart valve replacement. Current interpretive data was last revised on 2019. Blood 09/30/2024 10:0 2 AM CDT 09/30/2024 10:40 AM CDT Faisal Montalvo MD LAB BLOOD ORDERABLES Final Result Performing Organization Address [facility] Co de Phone Number [facility] Department [place] [address] * (ABNORMAL) Magnesium (09/30/2024 10:02 AM CDT) [facility] Magnesium 2.6(H) 1.4 - 2.5 mg/dL Blood 09/30/2024 10:0 2 AM CDT 09/30/2024 10:12 AM CDT Faisal Montalvo MD LAB BLOOD ORDERABLES Final Result Performing Organization Address City/[facility] Co de Phone Number [facility] [place] [address] * Comprehensive metabolic panel (09/30/2024 10:02 AM CDT) [facility] Sodium 139 135 - 145 mmol/L Potassium, pl 4.6 3.3 - 4.9 mmol/L [facility] Chloride 105 97 - 110 mmol/L [facility] CO2 26 22 - 32 mmol/L [facility] Anion gap 8 2 - 15 mmol/L [facility] BUN 19 6 - 25 mg/dL [facility] Creatinine 1.04 0.80 - 1.30 mg/dL [facility] Glucose 101 70 - 199 mg/dL [facility] Comment: Interpretive Data Fasting glucose >/= [...] 2022. Calcium 9.1 8.5 - 10.3 mg/dL [facility] Bilirubin, total 0.3 0.1 - 1.2 mg/dL [facility] Protein, pl 7.7 6.5 - 8.5 g/dL [facility] Albumin 4.3 3.5 - 5.0 g/dL [facility] Alk phos 70 40 - 130 Units/L [facility] ALT 18 7 - 55 Units/L [facility] AST 25 10 - 50 Units/L [facility] Blood 09/30/2024 10:0 2 AM CDT 09/30/2024 10:12 AM CDT Faisal Montalvo MD LAB BLOOD ORDERABLES Final Result Performing Organization Address City/State/[facility] Co fl Phone Number [facility] [place] [address] * PET/CT FDG Skull to Thigh (09/28/2024 [...] FDG-PET/CT IMAGING DATE OF STUDY: 09/28/2024 SCANNER: [facility] RADIOPHARMACEUTICAL: 6.83 mCi F-18 Fluorodeoxyglucose (FDG) [...] obtained. The study was interpreted on the [employer] workstation. The mean liver SUV (reported for quality assurance/r&d lab technician purposes) is 2.0. The total scanned area [...] FDG-PET/CT IMAGING DATE OF STUDY: 09/28/2024 SCANNER: [facility] RADIOPHARMACEUTICAL: 6.83 mCi F-18 Fluorodeoxyglucose (FDG) [...] obtained. The study was interpreted on the [employer] workstation. The mean liver SUV (reported for quality assurance/r&d lab technician purposes) is 2.0. The total scanned area [...] esult from Last 3 Months Insurance MEDICARE [facility] MEDICARE ADVANTAGE MEDICARE RESEARCH [facility] MEDICARE ADVANTAGE [facility] MEDICARE ADVANTAGE [facility] MEDICARE ADVANTAGE Advance Directives For more information, please contact: [phone] * Full Code (Latest Code Status on File) Date Activated Date Inactivated Comments 10/11/2024 7:59 PM 10/12/2024 6:37 PM Care Teams Glove Parts Inspector Relationship Specialty Start Date End Date Destin Escalona MD [address] [address] PCP - General Family Medicine 05/02/20 Malachi Steen MD [address] [place] [address] [address] Consulting Physician Otolaryngology 09/03/24 Mariah Sharma, RN Nurse Navigator 09/21/24 Faisal Montalvo MD [address] [facility] [address] [place] [address] Medical Oncologist/Radiology Nurse Medical Oncology 09/22/24 Jair Sexton MD [address] [facility] DEPT OTOLARYNGOLOGY, [address] [address] Consulting Physician Otolaryngology 09/22/24 Adriel Moore MD PhD [address] [facility] [address] [place] [address] Radiation Oncologist Radiation Oncology 09/22/24 Maureen Hernández LCSW Truck Driver Flatbed 09/22/24
--- OUTSIDE RECORDS SUMMARY | 2024-12-20 18:59 | XMS_ITS ---
Author Organization [facility] [address] Address [address] [place] [address] Care Team Providers Care Sheet Combining Operator Name Role Phone Destin Escalona MD Primary Care Provider [phone] Malachi Steen MD Unavailable [phone] Mariah Sharma RN Unavailable Unavailable Faisal Montalvo MD Unavailable [phone] Jair Sexton MD Unavailable [phone] Adriel Moore MD PhD Unavailable [phone] Maureen Hernández LCSW Unavailable Unavaila ble Active [...] mass 09/09/2024 Current Treatment and Therapy Plans [id number] - [facility] - H&N - Adjuvant Cisplatin* Plan [...]
--- OUTSIDE RECORDS SUMMARY | 2024-12-20 18:59 | XMS_ITS | Encounter Summary ---
Author Organization [facility] Healthcare Address [address] [place] [address] Care Team Providers Care Clinical Psychology Teacher Name Role Phone Destin Escalona MD Primary Care Provider + [phone] Malachi Steen MD Unavailable [phone] Mariah Sharma RN Unavailable Unavailable Faisal Montalvo MD Unavailable [phone] Jair Sexton MD Unavailable [phone] Adriel Moore MD PhD Unavailable [phone] Maureen Hernández LCSW Unavailable Unavaila ble Encounter Details Date Type Department Care Team (Late st Contact Info) Description 12/20/2024 8:53 AM CDT Hospital Encounter [facility] Radiation Oncology [address] [facility] [place] [address] Social History Tobacco Use Types Packs/Day Years Used Date Smoking Tobacco: Former Cigarettes 0.8 3 0 06/16/1973 - 06/16/1976 Passive Smoke Exposure: Past Smokeless Tobacco: Never [facility] Utilities Answer Date Recorded In the past 12 months has [employer], gas, oil, or water company threatened [...] often do you attend chur ch or catholic services? 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 Gender Identity Male 09/08/2024 11:39 AM CDT Sexual Orientation Straight 09/08/2024 11 :39 AM CDT documented as of this encounter Plan of Treatment Not on file documented as of this encounter Visit Diagnoses Not on filedocumented in this encounter Care Teams Clinical Psychology Teacher Relationship Specialty Start Date End Date Destin Escalona MD [address] [address] PCP - General Family Medicine 05/02/20 Malachi Steen MD [address] [address] Consulting Physician Otolaryngology 09/03/24 Mariah Sharma, RN Nurse Navigator 09/21/24 Faisal Montalvo MD [address] [facility] [address] [place] [address] Medical Oncologist/Workforce Analyst Medical Oncology 09/22/24 Jair Sexton MD [address] [facility] DEPT OTOLARYNGOLOGY, [address] [address] Consulting Physician Otolaryngology 09/22/24 Adriel Moore MD PhD [address] [place] [address] Radiation Oncologist Radiation Oncology 09/22/24 Maureen Hernández LCSW Construction Technician 09/22/24 documented as of this encounter
--- OUTSIDE RECORDS SUMMARY | 2024-12-20 18:59 | XMS_ITS | Referral Summary ---
Author Organization [facility] [address] Address [address] [place] [address] Care Team Providers Care Choke Reamer Name Role Phone Destin Escalona MD Primary Care Provider [phone] Malachi Steen MD Unavailable [phone] Mariah Sharma RN Unavailable Unavailable OpFaisal hernández MD Unavailable [phone] Jair Sexton MD Unavailable [phone] Adriel Moore MD PhD Unavailable [phone] Maureen Hernández LCSW Unavailable Unavaila ble Encounters Date Type Department Care Team Description 12/20/2024 Orders Only RAD ONC TREATMENTS Miscellaneous, Not In File 12/20/2024 8:53 AM CDT Hospital Encounter [facility] Radiation Oncology [address] [facility] [place] [address] 12/16/2024 Orders Only RAD ONC TREATMENTS Miscellaneous, Not In File 12/16/2024 10:15 AM CDT Lab [facility] - Lab Collection [address] [place] [facility] Floor 5 [place] [address] Malignant neoplasm without specification of site (HCC) 12/16/2024 11:15 AM CDT Office Visit [facility] Oncology [address] [facility] Floor 5 [place] [address] Faisal Montalvo MD 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); Malignant neoplasm without specification of site (HCC); 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) 12/16/2024 9:33 AM CDT - 12/16/2024 11:59 PM CDT Hospital Encounter [facility] Radiation Oncology [address] [facility] [place] [address] Discharge Disposition: Discharge to home or self care 12/15/2024 Orders Only [facility] Oncology [address] [facility] Floor 5 [place] [address] Antony Rubio MD Malignant neoplasm without specification of site (HCC) (Primary Dx) 12/15/2024 Orders Only RAD ONC TREATMENTS Miscellaneous, Not In File 12/15/2024 10:46 AM CDT - 12/15/2024 11:59 PM CDT Hospital Encounter [facility] Radiation Oncology [address] [place] [address] Discharge Disposition: Discharge to home or self care 12/14/2024 Documentation [facility]ing 1 [place] [address] 12/14/2024 OTV [facility] Radiation Oncology [address] [place] [address] Adriel Moore MD PhD 12/14/2024 Orders Only RAD ONC TREATMENTS Miscellaneous, Not In File 12/14/2024 9:22 AM CDT - 12/14/2024 11:59 PM CDT Hospital Encounter [facility] Radiation Oncology [address] [place] [address] Discharge Disposition: Discharge to home or self care 12/13/2024 Orders Only RAD ONC TREATMENTS Miscellaneous, Not In File 12/13/2024 1:18 PM CDT - 12/13/2024 11:59 PM CDT Hospital Encounter [facility] Radiation Oncology [address] [place] [address] Discharge Disposition: Discharge to home or self care 12/11/2024 1:59 PM CDT - 12/11/2024 5:09 PM CDT Hospital Encounter [facility] [address] [place] [address] 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); Malignant neoplasm without specification of site (HCC) Discharge Disposition: Discharge to home or self care 12/10/2024 Orders Only RAD ONC TREATMENTS Miscellaneous, Not In File 12/10/2024 11:12 AM CDT - 12/10/2024 11:59 PM CDT Hospital Encounter [facility] Radiation Oncology [address] [place] [address] Discharge Disposition: Discharge to home or self care 12/10/2024 9:00 AM CDT Infusion [facility] Infusion [address] [facility] Floor 5 [place] [address] 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); Malignant neoplasm without specification of site (HCC) 12/09/2024 Orders Only [facility] Oncology [facility] Floor 6 [place] [address] Jaiden Chavez MD PhD Malignant neoplasm without specification of site (HCC) (Primary Dx); 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) 12/09/2024 Orders Only RAD ONC TREATMENTS Miscellaneous, Not In File 12/09/2024 6:53 AM CDT - 12/09/2024 11:59 PM CDT Hospital Encounter [facility] Radiation Oncology [address] [place] [address] Discharge Disposition: Discharge to home or self care 12/09/2024 11:30 AM CDT Infusion [facility] - Infusion [address] [facility] Floor 5 [place] [address] 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); Malignant neoplasm without specification of site (HCC) 12/09/2024 9:30 AM CDT Lab [facility] - Lab Collection [address] [facility] Floor 5 [place] [address] Malignant neoplasm without specification of site (HCC); 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) 12/09/2024 10:30 AM CDT Office Visit [facility] Oncology [address] [facility] Floor 5 [place] [phone] Estela Wong NP 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); Malignant neoplasm without specification of site (HCC); 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) 12/08/2024 Orders Only RAD ONC TREATMENTS Miscellaneous, Not In File 12/08/2024 3:42 PM CDT - 12/08/2024 11:59 PM CDT Hospital Encounter [facility] Radiation Oncology [address] [facility] [place] [address] Discharge Disposition: Discharge to home or self care 12/07/2024 OTV [facility] Radiation Oncology [address] [facility] [place] [address] Adriel Moore MD PhD 12/07/2024 Orders Only RAD ONC TREATMENTS Miscellaneous, Not In File 12/07/2024 11:14 AM CDT - 12/07/2024 11:59 PM CDT Hospital Encounter [facility] Radiation Oncology [address] [facility] [place] [address] Adriel Moore MD PhD Discharge Disposition: Discharge to home or self care 12/06/2024 7:40 PM CDT - 12/06/2024 11:59 PM CDT Hospital Encounter [facility] Radiation Oncology [address] [place] [address] Discharge Disposition: Discharge to home or self care 12/03/2024 Telephone [facility] Head and Neck Tumor Center [address] [place] [address] 4th [place] [address] Mariah Sharma, LIZBETH Navigation follow up-tx start check in 11/19/2024 Telephone [facility] Oncology [address] [place] [phone] Henny Harper RN 11/18/2024 11:59 AM CDT - 11/18/2024 11:59 PM CDT Hospital Encounter [facility] Radiation Oncology [facility] Advanced Medicine [facility] [place] [address] Adriel Moore MD PhD Discharge Disposition: Discharge to home or self care 11/09/2024 Telephone [facility] 1 [place] [address] Adia Mccall, MAURO 11/03/2024 3:00 PM CDT Therapy [facility] Otolaryngology [address] [place] [phone] Sarah Noland SLP Head and neck cancer (HCC) (Primary Dx); Dysphagia, unspecified type; 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) 11/03/2024 2:20 PM CDT Office Visit [facility] Department of Otolaryngology Head-Neck Division [address] [place] [phone] Jair Sexton MD 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) 11/02/2024 Telephone [facility] Physicians [facility] Oncology [address] [place] [address] [place] [phone] Faisal Montalvo MD 10/28/2024 9:15 AM CDT Lab [facility] - Lab Collection [address] [place] [address] Neck mass; Malignant neoplasm without specification of site (HCC); 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); 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) 10/28/2024 10:15 AM CDT Office Visit [facility] Oncology [address] [place] [phone] Faisal Montalvo MD Malignant neoplasm without specification of site (HCC) (Primary Dx); 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); 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); Head and neck cancer (HCC) 10/27/2024 Orders Only [facility] Oncology [facility] 5 [place] [address] Joanie Banks BS Neck mass (Primary Dx) 10/26/2024 Telephone [facility] [address] [place] [phone] Adia Mccall, MAURO 10/15/2024 9:30 AM CDT Clinical Support [facility] Department of Otolaryngology Head-Neck Division [address] [place] [address] 5 [place] [phone] 10/15/2024 Telephone [facility] Otolaryngology [address] [place] [address] Marietta Patterson MS 10/13/2024 Telephone [facility] Head [facility] Tumor [facility] [address] [place] [address] 4th [place] [address] Mariah Sharma, LIZBETH Navigation follow up- hospital discharge check in 10/11/2024 9:19 AM CDT - 10/12/2024 2:31 PM CDT Hospital Encounter [address] [phone] Jair Sexton MD 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) Discharge Disposition: Discharge to home or self care 10/11/2024 11:20 AM CDT - 10/11/2024 4:15 PM CDT Surgery [facility] Operating Room 1 [place] [phone] Jair Sexton MD SP ROBOTIC GLOSSECTOMY 10/11/2024 1:43 PM CDT Anesthesia Event [facility] Operating Room 1 [place] [phone] Jonathan Ochoa MD Dippolito, Jenny Irene, NP 10/08/2024 Telephone [facility] [address] [place] [phone] Mariah Sharma, RN Navigation follow up- pre-surgical check in 10/05/2024 Telephone [facility] Oncology [address] [place] [phone] Henny Harper, LIZBETH Pre Cert 09/30/2024 2:30 PM CDT Lab [facility] - Lab Collection [address] [place] [address] 5 [place] [address] Malignant neoplasm without specification of site (HCC); Head and neck cancer (HCC) 09/30/2024 Telephone [facility] Oncology [address] [place] [phone] Henny Harper, LIZBETH 09/30/2024 Telephone [facility] [address] [place] [phone] Mariah Sharma, LIZBETH Navigation follow up 09/30/2024 10:00 AM CDT Lab [facility] - Lab Collection [address] [place] [address] Malignant neoplasm without specification of site (HCC); Head and neck cancer (HCC) 09/30/2024 3:30 PM CDT Pre-Admission Testing [facility] for Preoperative Assessment and Planning [facility] [address] [place] [address] Preoperative testing (Primary Dx) 09/30/2024 8:00 AM CDT Office Visit [facility] Oncology [address] [place] [phone] Faisal Montalvo MD Malignant neoplasm without specification of site (HCC) (Primary Dx); Head and neck cancer (HCC) 09/28/2024 11:00 AM CDT Consult [facility] Radiation Oncology [address] [place] [address] [place] [address] Adriel Moore MD PhD Head and neck cancer (HCC) 09/28/2024 12:46 PM CDT - 09/28/2024 11:59 PM CDT Hospital Encounter [facility] - PET [address] [place] [facility] Floor 8 [place] [address] Discharge Disposition: Discharge to home or self care 09/28/2024 12:45 PM CDT - 09/28/2024 11:59 PM CDT Hospital Encounter [facility] - PET [address] [facility] Floor 8 [place] [address] Head and neck cancer (HCC) Discharge Disposition: Discharge to home or self care 09/22/2024 Telephone [facility] [address] [facility] 1st [place] [phone] Chela Solis 09/22/2024 Documentation [facility] Tumor [facility] [address] [facility] 4th [place] [address] Maureen Hernández LCSW 09/21/2024 Telephone [facility] [address] [phone] Mariah Sharma, molded goods spot picker Initial Call 09/21/2024 Telephone [facility] Radiation Oncology [address] [facility] [place] [address] Adriel Moore MD PhD 09/20/2024 Documentation [facility] [address] [phone] Maureen Hernández, FLUE GAS ANALYST 09/20/2024 Orders Only [facility] Department of Otolaryngology Head-Neck Division [address] [facility] Floor 5 [place] [phone] Jair Sexton MD Head and neck cancer (HCC) (Primary Dx) from Last 3 Months Allergies No known active allergies Medications ferrous sulfate 325 mg (65 mg of elemental iron) tabletIndication s:Supplement Take 1 tablet (65 mg of elemental iron total) by mouth head wrestling coach before breakfast Active oxyCODONE (ROXICODONE) 5 mg [...] Tobacco: Never Tobacco Cessation:Counseling Given: Not Answered [facility] Utilities Answer Date Recorded In [...] often do you attend chur ch or hoahaoism services? Patient unable to answer 09/22/2024 Do you belong to any clubs o r organizations such as catholic groups, unions, fraternal or athletic groups, or [...] any time in the past 12 [facility], were you homeless or living [...] on file Legal Sex Male 9:30 AM ADMISSIONS EVALUATOR Gender Identity Male 09/08/2024 11:39 AM CDT [...] and neck with unknown primary site (HCC) LA AN PROCEDURE PLACEHOLDER Routine 10/11/2024 2:16 PM CDT LA AN ELECTIVE ENDOTRACHEAL AIRWAY Routine 10/11/2024 2:16 [...] BLOOD ORDERABLES Final Result Performing Organization Address City/[facility]/ZIP Co de Phone Number [facility] [place] [address] * Magnesium (12/16/2024 10:01 AM CDT) Pathologist [facility] Magnesium 2.4 1.4 - 2.5 mg/dL Blood 12/16/2024 10:0 1 AM CDT 12/16/2024 10:23 AM CDT Antony Rubio MD LAB BLOOD ORDERABLES Final Result Performing Organization Address City/[facility]/ZIP Co de Phone Number [facility] [place] [address] * (ABNORMAL) Basic metabolic panel (12/16/2024 10:01 AM CDT) Pathologist [facility] Sodium 138 135 - 145 mmol/L Potassium, pl 4.7 3.3 - 4.9 mmol/L [facility] Chloride 103 97 - 110 mmol/L [facility] CO2 28 22 - 32 mmol/L [facility] Anion gap 7 2 - 15 mmol/L [facility] BUN 28(H) 6 - 25 mg/dL [facility] Creatinine 1.47(H) 0.80 - 1.30 mg/dL [facility] Glucose 100 70 - 199 mg/dL [facility] Comment: Interpretive Data Fasting glucose >/= 126 [...] 2022. Calcium 9.5 8.5 - 10.3 mg/dL [facility] Blood 12/16/2024 10:0 1 AM CDT 12/16/2024 10:23 AM CDT us Antony Rubio MD LAB BLOOD ORDERABLES Final Result [facility] Department [place] [address] * RAD ONC ARIA SESSION SUMMARY (12/16/2024 9:54 AM CDT) Pathologist [facility] Course Name C1 HEAD NECK_LT ARIA Course [...] ORD ERABLES Final Result Performing Organization Address [facility] Co de Phone Number MOLLY * RAD [...] ORDERABLES Final Result [facility] Department [place] [address] * Differential, auto (12/09/2024 9:23 AM CDT) Neutrophil abs 3.86 1.50 - 6.50 K/cumm Comment:Testing performed by : [facility], [address] [place], [place] [phone] Lymphocyte abs 1.45 0.80 - 3.30 K/cumm CERSLOAN BJ Comment:Testing performed by : [facility], [address] [place] [phone] Monocyte abs 0.55 0.20 - 0.80 K/cumm CERSLOAN MCCLENDON Comment:Testing performed by : [facility], [address] [place] [address] Eosinophil abs 0.29 0.00 - 0.50 K/cumm CERSLOAN MCCLENDON Comment:Testing performed by : [facility], [address] [place] [address] Basophil abs 0.03 0.00 - 0.10 K/cumm CERSLOAN BJ Comment:Testing performed by : [facility], [address] [place] [phone] Neutrophil pct 62.5 % CERSLOAN MCCLENDON Comment: Interpretive Data Percent cell count reference ranges are not reported, since discordance with absolute values may lead to misinterpretation of CBC data. Current Interpretive Data was last revised on 2017. Testing performed by: [facility], [address] [place] [phone] Lymphocyte pct 23.4 % CERSLOAN MCCLENDON Comment: Interpretive Data Percent cell count reference ranges are not reported, since discordance with absolute values may lead to misinterpretation of CBC data. Current Interpretive Data was last revised on 2017. Testing performed by: [facility], [address] [place] [phone] Monocyte pct 8.9 % CERSLOAN MCCLENDON Comment: Interpretive Data Percent cell count reference ranges are not reported, since discordance with absolute values may lead to misinterpretation of CBC data. Current Interpretive Data was last revised on 2017. Testing performed by: [facility], [address] [place] [phone] Eosinophil pct 4.7 % PAO MCC[facility]END[facility] Comment: Interpretive Data Percent cell count reference ranges are not reported, since discordance with absolute values may lead to misinterpretation of CBC data. Current Interpretive Data was last revised on 2017. Testing performed by: [facility], [address] [place] [phone] Basophil pct 0.6 % CERSLOAN MCCLENDON Comment: Interpretive Data Percent cell count reference ranges are not reported, since discordance with absolute values may lead to misinterpretation of CBC data. Current Interpretive Data was last revised on 2017. Testing performed by: [facility], [address] [place] [phone] Blood 12/09/2024 9:23 AM CDT 12/09/2024 9:24 AM CDT us Estela Wong JINRIKISHA DRIVER LAB BLOOD ORDERABLES Final Result [facility] Department [place] [address] * CBC with auto differential (12/09/2024 9:23 AM CDT) WBC 6.18 3.80 - 9.90 K/cumm Comment:Testing performed by : [facility], [address] [place] [address] Hgb 14.2 13.0 - 17.5 g/dL CERNER BJ Comment:Testing performed by : [facility], [address] [place] [address] Hct 43.4 38.9 - 50.3 % CERNER BJ Comment:Testing performed by : [facility], [address] [place] [address] Plt 205 150 - 400 K/cumm CERNER BJ Comment:Testing performed by : [facility], [address] [place] [address] MPV 9.0 6.8 - 10.4 fL CERNER BJ Comment:Testing performed by : [facility], [address] [place] [address] RBC 4.88 4.30 - 5.80 M/cumm CERNER BJ Comment:Testing performed by : [facility], [address] [place] [address] MCV 88.8 81.3 - 96.4 fL CERNER BJ Comment:Testing performed by : [facility], [address] [place] [address] MCH 29.1 27.1 - 33.3 pg CERNER BJ Comment:Testing performed by : [facility], [address] [place] [address] MCHC 32.7 32.3 - 35.7 g/dL CERNER BJ Comment:Testing performed by : [facility], [address] [place] [address] RDW CV 14.2 11.1 - 14.9 % CERNER BJ Comment:Testing performed by : [facility], [address] [place] [address] NRBC abs 0.00 0.00 - 0.01 K/cumm CERNER [facility] Comment:Testing performed by : [facility], [facility] [place] [address] Blood 12/09/2024 9:23 AM CDT 12/09/2024 9:24 AM CDT Estela Wong NP LAB BLOOD ORDERABLES Final Result Performing Organization Address City/[facility]/ZIP Co de Phone Number [facility] Department [place] [address] * Magnesium (12/09/2024 9:23 AM CDT) [facility] Magnesium 2.3 1.4 - 2.5 mg/dL Blood 12/09/2024 9:23 AM CDT 12/09/2024 9:26 AM CDT Estela Wong JINRIKISHA DRIVER LAB BLOOD ORDERABLES Final Result Performing Organization Address City/[facility] Co de Phone Number [facility] Department [place] [address] * Comprehensive metabolic panel (12/09/2024 9:23 AM CDT) Pathologist [facility] Sodium 138 135 - 145 mmol/L Potassium, pl 4.2 3.3 - 4.9 mmol/L [facility] Chloride 104 97 - 110 mmol/L [facility] CO2 26 22 - 32 mmol/L [facility] Anion gap 8 2 - 15 mmol/L [facility] BUN 17 6 - 25 mg/dL [facility] Creatinine 1.08 0.80 - 1.30 mg/dL [facility] Glucose 123 70 - 199 mg/dL [facility] Comment: Interpretive Data Fasting glucose >/= 126 [...] total 0.4 0.1 - 1.2 mg/dL [facility] Protein, pl 7.5 6.5 - 8.5 g/dL [facility] Albumin 4.3 3.5 - 5.0 g/dL [facility] Alk phos 79 40 - 130 Units/L [facility] ALT 13 7 - 55 Units/L [facility] AST 22 10 - 50 Units/L [facility] Blood 12/09/2024 9:23 AM CDT 12/09/2024 9:26 AM CDT us Estela Wong NP LAB BLOOD ORDERABLES Final Result [facility] Department [place] [address] * RAD ONC ARIA SESSION SUMMARY (12/09/2024 [...] ORD ERABLES Final Result Performing Organization Address [facility] Co de Phone Number MOLLY * RAD [...] ORDERABLES Final Result PAO MCCLENDON [facility] Department [place] [address] * Differential, auto (10/28/2024 9:28 AM CDT) Neutrophil abs 3.86 1.50 - 6.50 K/cumm Comment:Testing performed by : [facility], [address] [place], [place] [phone] Lymphocyte abs 1.26 0.80 - 3.30 K/cumm PAO MCCLENDON Comment:Testing performed by : [facility], [address] [place] [phone] Monocyte abs 0.61 0.20 - 0.80 K/cumm PAO MCCLENDON Comment:Testing performed by : [facility], [address] [place] [address] Eosinophil abs 0.22 0.00 - 0.50 K/cumm PAO MCCLENDON Comment:Testing performed by : [facility], [address] [place] [address] Basophil abs 0.05 0.00 - 0.10 K/cumm PAO MCCLENDON Comment:Testing performed by : [facility], [address] [place] [phone] Neutrophil pct 64.4 % CERSLOAN MCCLENDON Comment: Interpretive Data Percent cell count reference ranges are not reported, since discordance with absolute values may lead to misinterpretation of CBC data. Current Interpretive Data was last revised on 2017. Testing performed by: [facility], [address] [place] [phone] Lymphocyte pct 21.0 % PAO MCCLENDON Comment: Interpretive Data Percent cell count reference ranges are not reported, since discordance with absolute values may lead to misinterpretation of CBC data. Current Interpretive Data was last revised on 2017. Testing performed by: [facility], [address] [place] [phone] Monocyte pct 10.2 % PAO MCCLENDON Comment: Interpretive Data Percent cell count reference ranges are not reported, since discordance with absolute values may lead to misinterpretation of CBC data. Current Interpretive Data was last revised on 2017. Testing performed by: [facility], [address] [place] [address] Eosinophil pct 3.6 % PAO MCCLENDON Comment: Interpretive Data Percent cell count reference ranges are not reported, since discordance with absolute values may lead to misinterpretation of CBC data. Current Interpretive Data was last revised on 2017. Testing performed by: [facility], [address] [place] [phone] Basophil pct 0.8 % PAO MCCLENDON Comment: Interpretive Data Percent cell count reference ranges are not reported, since discordance with absolute values may lead to misinterpretation of CBC data. Current Interpretive Data was last revised on 2017. Testing performed by: [facility], [address] [place] [phone] Blood 10/28/2024 9:28 AM CDT 10/28/2024 9:31 AM CDT us Faisal Montalvo MD LAB BLOOD ORDERABLES Final Result [facility] Department [place] [address] * (ABNORMAL) CBC with auto differential (10/28/2024 9:28 AM CDT) WBC 5.99 3.80 - 9.90 K/cumm Comment:Testing performed by : [facility], [address] [place] [address] Hgb 13.0 13.0 - 17.5 g/dL CERNER BJ Comment:Testing performed by : [facility], [address] [place] [address] Hct 38.8(L) 38.9 - 50.3 % CERNER BJ Comment:Testing performed by : [facility], [address] [place] [address] Plt 286 150 - 400 K/cumm CERNER BJ Comment:Testing performed by : [facility], [address] [place] [address] MPV 8.6 6.8 - 10.4 fL CERNER BJ Comment:Testing performed by : [facility], [address] [place] [address] RBC 4.45 4.30 - 5.80 M/cumm CERNER BJ Comment:Testing performed by : [facility], [address] [place] [address] MCV 87.3 81.3 - 96.4 fL CERNER BJ Comment:Testing performed by : [facility], [address] [place] [address] MCH 29.3 27.1 - 33.3 pg CERNER BJ Comment:Testing performed by : [facility], [address] [place] [address] MCHC 33.6 32.3 - 35.7 g/dL CERNER BJ Comment:Testing performed by : [facility], [address] [place] [address] RDW CV 14.2 11.1 - 14.9 % CERNER BJ Comment:Testing performed by : [facility], [address] [place] [address] NRBC abs 0.00 0.00 - 0.01 K/cumm CERNER [facility] Comment:Testing performed by : [facility], [address] [place] [phone] Blood 10/28/2024 9:28 AM CDT 10/28/2024 9:31 AM CDT Faisal Montalvo MD LAB BLOOD ORDERABLES Final Result Performing Organization Address [facility] de Phone Number [facility] Department [place] [address] * aPTT (10/28/2024 9:28 AM CDT) aPTT [...] Final Result Performing Organization Address [facility] de Phone Number [facility] [place] [address] * Protime-INR (10/28/2024 9:28 AM CDT) PT 10.1 9.7 - 13.0 sec INR 0.94 0.90 - 1.20 [facility] Comment: Interpretive data Oral anticoagulant therapeutic ranges: Venous thromboembolism prophylaxis or treatment: 2.0-3.0 CARDIOLOGY Standard range: 2.0-3.0 High-intensity range: 2.5-3.5 Refer to indication-specific guidelines for appropriate target ranges for prosthetic heart valve replacement. Current interpretive data was last revised on 2019. Blood 10/28/2024 9:28 AM CDT 10/28/2024 9:46 AM CDT Faisal Montalvo MD LAB BLOOD ORDERABLES Final Result Performing Organization Address City/[facility]/ZIP Co de Phone Number [facility] Department [place] [address] * Magnesium (10/28/2024 9:28 AM CDT) Pathologist [facility] Magnesium 2.3 1.4 - 2.5 mg/dL Blood 10/28/2024 9:28 AM CDT 10/28/2024 9:35 AM CDT Faisal Montalvo MD LAB BLOOD ORDERABLES Final Result Performing Organization Address [facility] de Phone Number [facility] Department [place] [address] * Comprehensive metabolic panel (10/28/2024 9:28 AM CDT) [facility] Sodium 139 135 - 145 mmol/L Potassium, pl 4.6 3.3 - 4.9 mmol/L [facility] Chloride 106 97 - 110 mmol/L [facility] CO2 26 22 - 32 mmol/L [facility] Anion gap 7 2 - 15 mmol/L [facility] BUN 19 6 - 25 mg/dL [facility] Creatinine 1.07 0.80 - 1.30 mg/dL [facility] Glucose 91 70 - 199 mg/dL [facility] Comment: Interpretive Data Fasting glucose >/= 126 [...] 2022. Calcium 8.8 8.5 - 10.3 mg/dL [facility] Bilirubin, total 0.3 0.1 - 1.2 mg/dL CERNER [facility] Protein, pl 7.2 6.5 - 8.5 g/dL CERNER BJ Albumin 3.9 3.5 - 5.0 g/dL [facility] Alk phos 74 40 - 130 Units/L [facility]ERNER B[facility] ALT 12 7 - 55 Units/L [facility]ERNER [facility] AST 20 10 - 50 Units/L [facility]ER [facility] Blood 10/28/2024 9:28 AM CDT 10/28/2024 9:35 AM CDT us Faisal Montalvo MD LAB BLOOD ORDERABLES Final Result [facility] Department [place] [address] * Surgical pathology (10/11/2024 2:31 PM CDT) Tissue (Neck) 10/11/2024 2:3 1 PM CDT Tissue specimen (specimen) (Neck) 10/11/2024 2:46 PM CDT Tissue specimen (specimen) (Neck) 10/11/2024 3:53 PM CDT Tissue specimen (specimen) (Neck) 10/11/2024 3:54 PM CDT Tissue specimen (specimen) (Neck) 10/11/2024 3:54 PM CDT Narrative PATHOLOGY [facility] - 10/14/2024 6:33 PM CDT EPIC results best viewed via link to PDF [facility] [place] [address] Note to Patients: This report may contain [...] Gender: M : 1955 (Age: 68) Address: [address] [place], [place] [id number] Hospital #: [id number] Taken:10/11/2024 Received:10/11/2024 Reported: 10/14/2024 Patient Type: [facility] Inpatient Service: Ear Nose Throat Location: [place] [id number] Physician(s): Mariya Julian M.D. Diagnosis: A. Oropharynx, [...] evidence of malignancy in four nodes (0/4) [facility]/10/14/2024 18:33 By this signature, I attest that [...] 10/12/2024 15:10 PA(s): Carola Meredith MS, PA ([facility]) CANCER CASE SUMMARY FOR MALIGNANT [...] Surgical Pathology and Flow Cytometry Departments at [facility] as part of an ongoing quality assurance coordinator program and in compliance with federally mandated [...] Surgical Pathology and Flow Cytometry Departments of [facility]. It has not been cleared or approved by the U. S. Food and Drug Administration. IMAGES AND SCANNED DOCUMENTS, IF INCLUDED, ONLY VIEWABLE IN PDF VERSION OF REPORT us Jair Sexton MD LAB PATHOLOGY ORDERABLES F inal Result PATHOLOGY [facility] 3rd Floor [place], [place] [phone] * LA AN ELECTIVE ENDOTRACHEAL AIRWAY, LA AN PROCEDURE PLACEHOLDER (10/11/2024 2:16 PM CDT) [...] 9:41 AM CDT) ABO Rh A Positive [facility] HCLL OTHER 10/11/2024 9:41 AM CDT 10/11/2024 10:06 AM CDT Jair Sexton MD LAB BLOOD ORDERABLES Final Result Performing Organization Address City/[facility] Co de Phone Number PAO [facility] Department [place] [address] [facility] * TYPE AND SCREEN 14 DAY (09/30/2024 4:52 PM CDT) ABO Rh A Positive [place], indirect Negative [facility] Blood 09/30/2024 4:52 PM CDT 09/30/2024 7:06 PM CDT Narrative [facility] - 09/30/2024 8:00 PM CDT Is this test being ordered in advance for a procedure?->Yes Expected date of procedure:->10/11/24 Has the patient been transfused in the past 3 months?->No Juanita Wilson NP LAB BLOOD BANK TEST O RDERABLES Final Result Performing Organization Address [facility] Co de Phone Number [facility] Department [place] [address] * eGFR (09/30/2024 10:02 AM CDT) Pathologist [facility] eGFR 77 >=60 mL/min/1. 73 m2 Comment: [...] Montalvo MD LAB BLOOD ORDERABLES Final Result [facility] Department of Laboratories [place] [id number] * Differential, auto (09/30/2024 10:02 AM CDT) Neutrophil abs 3.78 1.50 - 6.50 K/cumm Comment:Testing performed by : [facility], [address] [place], [place] [phone] Lymphocyte abs 1.24 0.80 - 3.30 K/cumm PAO [facility] Comment:Testing performed by : [facility], [address] [place] [phone] Monocyte abs 0.57 0.20 - 0.80 K/cumm PAO [facility] Comment:Testing performed by : [facility], [address] [place], [place] [phone] Eosinophil abs 0.16 0.00 - 0.50 K/cumm PAO [facility] Comment:Testing performed by : [facility], [address] [place] [phone] Basophil abs 0.04 0.00 - 0.10 K/cumm PAO [facility] Comment:Testing performed by : [facility], [address] [place] [phone] Neutrophil pct 65.3 % CERSLOAN [facility] Comment: Interpretive Data Percent cell count reference ranges are not reported, since discordance with absolute values may lead to misinterpretation of CBC data. Current Interpretive Data was last revised on 2017. Testing performed by: [facility], [address] [place] [phone] Lymphocyte pct 21.4 % CERSLOAN [facility] Comment: Interpretive Data Percent cell count reference ranges are not reported, since discordance with absolute values may lead to misinterpretation of CBC data. Current Interpretive Data was last revised on 2017. Testing performed by: [facility], [address] [place] [phone] Monocyte pct 9.8 % PAO MCCLENDON Comment: Interpretive Data Percent cell count reference ranges are not reported, since discordance with absolute values may lead to misinterpretation of CBC data. Current Interpretive Data was last revised on 2017. Testing performed by: [facility], [address] [place] [phone] Eosinophil pct 2.8 % PAO MCCLENDON Comment: Interpretive Data Percent cell count reference ranges are not reported, since discordance with absolute values may lead to misinterpretation of CBC data. Current Interpretive Data was last revised on 2017. Testing performed by: [facility], [address] [place] [phone] Basophil pct 0.7 % PAO MCCLENDON Comment: Interpretive Data Percent cell count reference ranges are not reported, since discordance with absolute values may lead to misinterpretation of CBC data. Current Interpretive Data was last revised on 2017. Testing performed by: [facility], [address] [place] [phone] Blood 09/30/2024 10:0 2 AM CDT 09/30/2024 10:11 AM CDT Faisal Montalvo MD LAB BLOOD ORDERABLES Final Result PAO MCCLENDON [facility] Department [place] [address] * (ABNORMAL) CBC with auto differential (09/30/2024 10:02 AM CDT) WBC 5.79 3.80 - 9.90 K/cumm Comment:Testing performed by : [facility], [address] [place] [phone] Hgb 14.0 13.0 - 17.5 g/dL PAO MCCLENDON Comment:Testing performed by : [facility], [address] [place] [address] Hct 41.9 38.9 - 50.3 % CERNER BJ Comment:Testing performed by : [facility], [address] [place] [address] Plt 270 150 - 400 K/cumm CERSLOAN BJ Comment:Testing performed by : [facility], [address] [place] [address] MPV 9.0 6.8 - 10.4 fL CERNER BJ Comment:Testing performed by : [facility], [address] [place], [place] [phone] RBC 4.76 4.30 - 5.80 M/cumm CERSLOAN BJ Comment:Testing performed by : [facility], [address] [place], [place] [phone] MCV 88.1 81.3 - 96.4 fL CERSLOAN [facility] Comment:Testing performed by : [facility], [address] [place] [address] MCH 29.4 27.1 - 33.3 pg CERNER [facility] Comment:Testing performed by : [facility], [address] [place] [address] MCHC 33.4 32.3 - 35.7 g/dL CERNER [facility] Comment:Testing performed by : [facility], [address] [place] [address] RDW CV 15.0(H) 11.1 - 14.9 % CERSLOAN [facility] Comment:Testing performed by : [facility], [address] [place] [address] NRBC abs 0.00 0.00 - 0.01 K/cumm CERSLOAN [facility] Comment:Testing performed by : [facility], [address] [place] [address] Blood 09/30/2024 10:0 2 AM CDT 09/30/2024 10:11 AM CDT us Faisal Montalvo MD LAB BLOOD ORDERABLES Final Result Performing Organization Address City/[facility] Co de Phone Number [facility] [place] [address] * aPTT (09/30/2024 10:02 AM CDT) aPTT [...] BLOOD ORDERABLES Final Result Performing Organization Address [facility] de Phone Number [facility] [place] [address] * Protime-INR (09/30/2024 10:02 AM CDT) PT 10.7 9.7 - 13.0 sec INR 0.99 0.90 - 1.20 [facility] Comment: Interpretive data Oral anticoagulant therapeutic ranges: [...] Final Result Performing Organization Address [facility] Co de Phone Number [facility] [place] [address] * (ABNORMAL) Magnesium (09/30/2024 10:02 AM CDT) Magnesium 2.6(H) 1.4 - 2.5 mg/dL Blood 09/30/2024 10:0 2 AM CDT 09/30/2024 10:12 AM CDT us Faisal Montalvo MD LAB BLOOD ORDERABLES Final Result [facility] Department [place] [address] * Comprehensive metabolic panel (09/30/2024 10:02 AM CDT) Pathologist [facility] Sodium 139 135 - 145 mmol/L Potassium, pl 4.6 3.3 - 4.9 mmol/L [facility] Chloride 105 97 - 110 mmol/L [facility] CO2 26 22 - 32 mmol/L [facility] Anion gap 8 2 - 15 mmol/L [facility] BUN 19 6 - 25 mg/dL [facility] Creatinine 1.04 0.80 - 1.30 mg/dL [facility] Glucose 101 70 - 199 mg/dL [facility] Comment: Interpretive Data Fasting glucose >/= 126 [...] 2022. Calcium 9.1 8.5 - 10.3 mg/dL [facility] Bilirubin, total 0.3 0.1 - 1.2 mg/dL [facility] Protein, pl 7.7 6.5 - 8.5 g/dL [facility] Albumin 4.3 3.5 - 5.0 g/dL [facility] Alk phos 70 40 - 130 Units/L [facility] ALT 18 7 - 55 Units/L [facility] AST 25 10 - 50 Units/L [facility] Blood 09/30/2024 10:0 2 AM CDT 09/30/2024 10:12 AM CDT Faisal Montalvo MD LAB BLOOD ORDERABLES Final Result [facility] Department [place] [address] * PET/CT FDG Skull to Thigh (09/28/2024 [...] FDG-PET/CT IMAGING DATE OF STUDY: 09/28/2024 SCANNER: [facility] RADIOPHARMACEUTICAL: 6.83 mCi F-18 Fluorodeoxyglucose (FDG) i.v. [...] obtained. The study was interpreted on the [employer] workstation. The mean liver SUV (reported for quality coordinator purposes) is 2.0. The total scanned area [...] FDG-PET/CT IMAGING DATE OF STUDY: 09/28/2024 SCANNER: [facility] RADIOPHARMACEUTICAL: 6.83 mCi F-18 Fluorodeoxyglucose (FDG) i.v. [...] obtained. The study was interpreted on the [employer] workstation. The mean liver SUV (reported for quality coordinator purposes) is 2.0. The total scanned area [...] esult from Last 3 Months Insurance MEDICARE [facility] MEDICARE ADVANTAGE MEDICARE RESEARCH [facility] MEDICARE ADVANTAGE [facility] MEDICARE Address: [address] [address] [place] [address] [facility] MEDICARE ADVANTAGE [facility] MEDICARE Address: [address] [address] [place] [address] [facility] MEDICARE ADVANTAGE [facility] MEDICARE Address: [address] [address] [place] [address] Advance Directives For more information, please contact: [phone] * Full Code (Latest Code Status on File) Date Activated Date Inactivated Comments 10/11/2024 7:59 PM 10/12/2024 6:37 PM Care Teams Choke Reamer Relationship Specialty Start Date End Date Destin Escalona MD [address] [address] PCP - General Family Medicine 05/02/20 Malachi Steen MD [address] [place] [address] [place] [address] Consulting Physician Otolaryngology 09/03/24 Mariah Sharma, RN Nurse Navigator 09/21/24 OpFaisal hernández MD [address] [place] [address] [address] [place] [address] Medical Oncologist/Refinery Operator [employer] Medical Oncology 09/22/24 Jair Sexton MD [address] [facility] OT[facility], [address] [address] Consulting Physician Otolaryngology 09/22/24 Adriel Moore MD PhD [address] [facility] [address] [place] [address] Radiation Oncologist Radiation Oncology 09/22/24 Maureen Hernández LCSW Electrician Manager 09/22/24
[2024-12-20 19:20] VITALS: BP 166/90; PULSE 60; RESP 12; TEMP 36.7; O2SAT 100
[2024-12-20 20:44] VITALS: PULSE 60; RESP 18; O2SAT 100
[2024-12-20 21:35] VITALS: BP 154/84; PULSE 55; RESP 20; TEMP 36.4; O2SAT 100
== END 2024-12-20 21:22 | disposition home or self-care (01) ==
PROVIDERS: Physician Assistant; Emergency Provider Emergency Medicine; PCP Family Medicine
DX: K59.00 Constipation, unspecified (principal); C14.0 Malignant neoplasm of pharynx, unspecified; I10 Essential (primary) hypertension; E78.2 Mixed hyperlipidemia
CPT/HCPCS: 36415; 74018; 80053; 81001; 83690; 85025; 99283